=== PATIENT | male | born 1945 | race Caucasian/White ===

== ENCOUNTER → 2018-11-22 | Outpatient (CLI) | payer OTHER ==
[~2018-11-22] MED LIST: ACAR25TA2 PO; ASPI81TA85 PO; ATOR40TA PO; ATOR40TA75 PO; COQ-100C5 PO; EUCECRE2 TOP; GLIM4TAB PO; GLUC500T PO; HYDR-3644 PO; HYDR12.55 PO; ISOVUE-370 76% 100ML VIAL (Q9967) As Ordered ONE; LIPI1TAB2 PO; LISI5TAB PO; METF-839 PO; PERC7.5T12 PO; TYLE325T5 PO; TYLE650T38 PO; WARF05TA PO
--- NOTE | 2018-11-22 15:20 | REP ---
Clinical: Acute chest pain. Technique: Axial contrast enhanced images from the thoracic inlet to the upper abdomen using 100 ml Isovue 370 intravenous contrast material with coronal and sagittal re-formations. Findings: Satisfactory enhancement of the pulmonary vasculature is achieved and no filling defects are identified to suggest pulmonary embolus. Thoracic aorta is normal caliber without aneurysm or dissection. Heart and pericardium are normal. Bilateral lung dover are well aerated and clear without acute pulmonary parenchymal consolidation or atelectasis. Mild bilateral dependent changes noted. No nodule or mass lesion. No pleural effusion/reaction. No pneumothorax. No adenopathy. Impression: No evidence for pulmonary embolus. No acute pleuroparenchymal or mediastinal process. Electronically Signed by Patrick Richards MD 11/22/2018 03:12 P
== END ==
LOC: M RAD 14:33
PROVIDERS: ATTEND Internal Medicine
DX: R97.20 Elevated prostate specific antigen [PSA] (principal); R07.9 Chest pain, unspecified
CPT/HCPCS: 36415; 71275; 80048; Q9967

== ENCOUNTER 2020-04-04 13:26 | Emergency (ER) | payer MEDICARE, OTHER ==
[~2020-04-04] VITALS: Ht 180.3 cm; Wt 98.5 kg
[~2020-04-04 13:26] MED LIST changes: -GLIM4TAB PO; +GLIM4TAB5 PO; -ISOVUE-370 76% 100ML VIAL (Q9967) As Ordered ONE
--- OUTSIDE RECORDS SUMMARY | 2020-04-04 13:31 | CCD ---
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 01/06/2020 Atorvastatin Calcium 40mg Tablets Unknown Glimepiride 4mg Tablets Unknown Hydrochlorothiazide 12.5mg Tablets Unknown Metformin HCL ER 500mg Tablets ER 24HR Unknown Sudafed 30mg Tablets 1 tab by mouth twice a day x 5 days as needed congestion Unknown Immunizations Description No Information Available Vital Signs Date Vital Result Comment 01/06/2020 9:00am BP Systolic 134 mmHg BP Diastolic 78 mmHg Heart Rate 66 /min Respiratory Rate 17 /min O2 % BldC Oximetry 96 % Body Temperature 98.4 F Weight 210.00 lb Height 70 inches 5'10" BMI (Body Mass Index) 30.1 kg/m2 Pain Level 2 Results Description No Information Available Procedures Description No Information Available Medical Devices Description No Information Available Encounters Type Date Location Provider Dx Diagnosis Office Visit 01/06/2020 8:45a [facility] CHACHA Quintero J01.90 Acute sinusitis, unspecified Assessments Date Code Description Provider 01/06/2020 J01.90 Acute sinusitis, unspecified CHACHA Gomez Plan of Treatment 01/06/2020 - CHACHA Quintero* J01.90 Acute sinusitis, unspecified* New Medication:* Doxycycline Hyclate 100 mg - 1 twice a day x 7 days, take with food * Comments:* Supportive care: Vit c, rest, push clear fluids, steam. RTC if worsening despite txt, persistent sxs or new sxs Functional Status Description No Information Available Mental Status Description No Information Available Referrals Description No Information Available
--- OUTSIDE RECORDS SUMMARY | 2020-04-04 13:31 | CCD | Continuity of Care Document ---
Author Author Theodore LENTZ PA Organization Unknown Address [address] [place] [address] [place] [address] Phone [phone] Care Team Providers Care Psych Specialist Name Role Phone [email or web address] ([facility]) AUTM Problems Description No Information Available Social [...]
--- OUTSIDE RECORDS SUMMARY | 2020-04-04 13:31 | CCD ---
Author Author [facility] Organization [facility] Address [address] [place] [address] Phone Care Team Providers Care Echo Vascular Tech Name Role Phone [facility] Radiology, Imaging Unavailable [phone] Flakito BECKETT, Michell Rodrigues Unavailable [phone] Reason for Referral No Reason for Referral Recorded Problems Includes: Active, inactive, and resolved Problems All Visits Effective Date(s) Provider Condition Stat Allergic Rhinitis 12/05/2018 Sosa Grissom NP Active Note: 11/2018 -- Chronic, was only in winter mos, now year-round. Will trial Singulair for sx management. Fatigue 11/08/2018 Sosa Grissom NP Active Platelet Disorders 11/08/2018 Sosa Grissom NP Active Note: --11/15/18 seen by [facility] tlogy/Oncology Adhesive Capsulitis of Shoulder 03/25/2017 Sosa Griffiths P Active Note: Stable - followed by kely joel/Jaclyn. 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 without any prolonged AV conduction times or significant bradycardia Presence of other cardiac implants and grafts 05/21/2016 Meghana Yoon NP Active Note: Loop Recorder placed - [place] [facility]- last seen 03/2019 Syncope and collapse 05/21/2016 Sosa Grissom NP Inactive Note: per [facility] heart, implanta tion of a LINQ implantable forest fire lookout for diagnosis of recurrent presyncope, bradycardia and vifascicular block. 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 Repeat CT 2017 notes no change in Aneurysm size. Last seen 03/2019. Vitamin D Deficiency 02/05/2014 Sosa Grissom NP Active Note: Stable - 05/2017 -- Vit D level 13.3 ng/ml. Vit D 50,000iu weekly Diabetes Mellitus Type 2 12/27/2012 Sosa Grissom NP Activ e Note: Poorly-Controlled - 2019 -- HgA1C 11.1%, up from 9.9%, PT HAS BEEN OUT OF MEDS X 2.5MONTHS D/T INSURANCE CONCERNS. WILL HELP PT SORT OUT INSURANCE IF POSSIBLE AND SEND MEDS TEMPORARILY TO LOCAL PHARMACY Benign Prostatic Hypertrophy 12/19/2012 Sosa Grissom NP A ctive Note: Stable - -- TURP 2012. bx 12/01 neg for cancer Acute Pancreatitis 11/07/2012 - 12/19/2014 Saundra Torres esolved Note: hospitalized 10/27- Calculus of Gallbladder Without Cholecystitis Without Obstru 11/07/2012 Sosa Grissom NP Active Note: 2012 Elevated Prostate Specific Antigen (psa) 11/07/2012 Sosa Grissom NP Inactive Note: Unchanged - per hospit al discharge - elevated PSA. Pt c/o difficulty starting the urine. referral to urology was given prior to discharge. Slowing of Urinary Stream 11/07/2012 - 01/29/2014 Sosa Grissom NP Resolved Unspecified Follow-Up Examination 11/07/2012 - 01/29/2014 Sosa Grissom NP Resolved Urinary Complications Not Elsewhere Classified 11/07/2012 - 01/29/2014 Sosa Grissom NP Resolved Right Bundle Branch Block 02/28/2012 Sosa Grissom NP Acti ve Note: Stable - -- Normal Str ess Test 11/2016, follows with [facility]-- Echo 10/05/18 - Left ventricular systolic function normal, left ventricular diastolic function shows abnormal relaxation, estimated PA systolic pressure normal, Mitral valve shows mild insufficiency. Tricuspid valve shows mild insufficiency. The dimensions of the aortic root is not changed. Last seen 03/2019. Shortness of Breath 02/28/2012 Sosa Grissom NP Active Note: Unchanged - Dr. Car , [place] [facility]- last seen 03/2019. Syncope and Collapse 02/28/2012 - 01/29/2014 Sosa Grissom NP R esolved Note: per [facility] dated 10/02/12 - near syncopal spells twice weekly for the last 2 years. EKG with right bundle branch block and left anterior fascicular block. No evidence that this represents any bradycardia arrhythmias, most likely neurologic in nature. Unspecified Chest Pain 02/28/2012 Sosa Grissom NP Active Note: Dr. Car, [place] [facility]- last seen 03/2019. Coronary Atherosclerosis of [place] Coronary Artery 12/27/2011 Sosa Grissom NP Inactive Hyperlipidemia 12/27/2011 Sosa Grissom NP Active Note: Stable - followed by [facility] ardiology - last seen 03/2019. Hypertension (systemic) 12/13/2011 Sosa Grissom NP Active Note: Stable - 05/2019 -- Ashia ts [facility] Guidelines for Normal BP, Medication adjusted by [facility]- last seen 03/2019. Peripheral Vascular Disease 12/13/2011 Sosa Grissom NP Ac tive Note: Stable - -- Follows wi th [facility] Astigmatism 11/18/2011 Layne BURNHAM Active Note: See report from [facility] dated 07/22/11 . Compound hyperopic astigmatis, presbyopia. Treatment: glases, dry eye drops-follow up with eye doctor in 1 year, 1 month for dry eye. Colonoscopy (fiberoptic) 09/29/2011 Sosa Grissom NP Activ e Note: Unchanged - 09/2011. 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 Sosa Grissom SHADE CUTTER Active Note: Unchanged - -- Left ey e does not close, Plan of Treatment Pending Tests Order Diagnosis Results Due Ordering Provi jessy Lab (CBC)COMPLETE BLOOD CNT 02/06/20 Michell Fraga SHADE CUTTER Lab COMPREHENSIVE METABOLIC PANEL 02/06/20 Michell Fraga SHADE CUTTER Lab LIPID PANEL 02/06/20 Michell Griffiths P Lab MICROALBUMIN RANDOM 02/06/20 Michell evans SHADE CUTTER Lab PSA SCREEN 02/06/20 Michell Griffiths P Lab TSH 02/06/20 Michell Griffiths P Referrals To Diagnosis Urology Slowing of Urinary S tream Note: Please schedule patient with provi jessy US Orchitis and Epididy mitis Unspecified Note: Please schedule patient for testic ular ultrasound, r/o left testicular torsion; testicular pain Urology Hypertrophy (benign) of Prostate Without Urinary Obstruction Note: Please schedule patient with provi jessy in [place]; pt sees group in [place] and is requesting a second opinion from another urologist. Elevated PSA, s/p biopsy now unable to void, self-catheterizing at home. Current Urologist suggesting TURP Ortho Pain in right should er Note: Please schedule patient with provi jessy IN [facility] FOR RIGHT SHOULDER AND NECK PAIN THANK YOU Nutrition-Diabetic Counseling Encntr for general adult medical exam w/o abnormal findings Note: appt made for 02/07/15 at the [facility], appt letter mailed [email or web address] Orthopedic Pain in left shoulde r Note: Please schedule patient with provi jessy at [facility] in [place], pt with left shoulder pain, r/o arthritis vs rotator cuff injury. Hematology/Oncology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 Note: Please schedule patient with provi jessy in [place] area, pt with overt fatigue, abnormal Platelet count x one month. Thank you Orthopedic Imaging [facility] Radiology Foot drop, ri ght foot Note: Please schedule patient with provi jessy at [facility] for Assessment of Foot Drop Brace (approx 5y old) that may need adjustment? Thank you Findings Encounter Date Instructions for patient Establish Care with Michell Griffiths P 10/08/2019 Ordered Clinical summary transmitted to referring provider electronically with reasonable certainty of receipt or receiving provider [facility] Establish Care with Michell Rodrigues Flakito SHADE CUTTER 10/08/2019 Ordered follow-up visit Establish Care with Michell Rodrigues Flakito SHADE CUTTER 10/08/2019 Ordered return to the clinic if condition worsens or n ew symptoms arise Establish Care with Michell Rodrigues Flakito BECKETT 10/08/2019 Ordered Clinical summary transmitted to referring provider electronically with reasonable certainty of receipt or receiving provider [facility] Chronic Disease Follow-up with Sosa Grissom NP 05/31/2019 Ordered Clinical summary transmitted to referring provider electronically or receiving provider [facility] Chronic Disease Follow-up with Sosa Grissom NP 12/01/2018 Ordered Clinical summary transmitted to referring provider electronically or receiving provider [facility] Chronic Disease Follow-up with Sosa Grissom NP 07/12/2018 Ordered Clinical summary transmitted to referring provider electronically or receiving provider [facility] Chronic Disease Follow-up with Sosa Grissom NP 01/11/2018 Ordered Clinical summary transmitted to referring provider electronically or receiving provider [facility] Chronic Disease Follow-up with Sosa Grissom NP 06/23/2017 Return to the clinic if condition worsens or new sympt oms arise Chronic Disease Follow-up with oSsa Grissom NP 06/23/2017 Return to the clinic if condition worsens or new sympt oms arise Diabetes Follow- up with Sosa Grissom NP 02/22/2017 Ordered Transition in care, clinical sum [facility]hell [facility] Chronic Disease Follow-up with Sosa Grissom NP 11/18/2016 Return to the clinic if condition worsens or new sympt oms arise Chronic Disease Follow-up with Sosa Grissom NP 11/18/2016 Ordered Transition in care, clinical sum michell [facility] Chronic Disease Follow-up with Sosa Grissom NP 08/11/2016 Return to the clinic if condition worsens or new sympt oms arise Chronic Disease Follow-up with Sosa Grissom NP 08/11/2016 Return to the clinic if condition worsens or new sympt oms arise Chronic Disease Follow-up with Sosa Grissom NP 03/24/2016 Return to the clinic if condition worsens or new sympt oms arise Chronic Disease Follow-up with Sosa Grissom NP 12/10/2015 Return to the clinic if condition worsens or new sympt oms arise Chronic Disease Follow-up with Sosa Grissom NP 09/05/2015 Return to the clinic if condition worsens or new sympt oms arise Chronic Disease Follow-up with Saundra BURNHAM 06/24/2015 Return to the clinic if condition worsens or new sympt oms arise Chronic Disease Follow-up with Saundra BURNHAM 03/25/2015 Return to the clinic if condition worsens or new sympt oms arise Patient Education with Sosa Grissom NP 02/20/2015 Ordered return to the clinic if condition worsens or n ew symptoms arise AHR with Saundra BURNHAM 12/19/2014 Return to the clinic if condition worsens or new sympt oms arise Diabetes Follow- up with Saundra BURNHAM 08/27/2014 Return to the clinic if condition worsens or new sympt oms arise Diabetes Follow- up with Sosa Grissom NP 01/29/2014 Please have ultrasound done today. I will call you with results. Please begin antibiotics. Complete the dose I will call urology to see if I can get appointment sooner ice, elevation of testicle. Rest iboprofen 400mg for pain, discomfort To emergency for worsening pain, no urine output, worsening swelling, other concerns Walk-In with Sosa Grissom NP 02/05/2013 Continue testing blood sugar once manny y at different times of the day Continue current medications Call me if you see consistent blood sugars over 225 that you cannot explain begin vitamin D once a week for 12 weeks Call with any questions or concerns Dietary plan: 40-45 grams of carbohydrates per meals, three times daily 15 grams of carbohydrates per snack, can have three three times daily Always have a source of protein (meat, cheese, fish, chicken) with every meal Return in three months, sooner if needed Diabetes Follow-up with Sosa Grissom NP 12/27/2012 Return to the clinic if condition worsens or new sympt oms arise Diabetes Follow- up with Sosa Grissom NP 12/27/2012 Please have labs drawn in fasting stat e--nothing to eat for 10-12 hours We will contact you with results of labs Please call [place] with date/time of heart doctor appointment. We will try to make your next appointment around the same time/day next week. Continue with current medications Keep next week appointment with Urology Keep next week appointment with Heart Doctor Call with any concerns Meet & Greet New Appointment with Sosa Grissom NP 12/19/2012 Return to the clinic if condition worsens or new sympt oms arise Hospital Follow- up with Saundra Cuenca DO 11/07/2012 Ordered follow-up visit with cardiology today, went directly to their office from here. 3 months for review meds. Labs reprinted for him M 20 Minutes with Layne BURNHAM 12/13/2011 Ordered return to the clinic if condition worsens or n ew symptoms arise M 20 Minutes with Layne BURNHAM 12/13/2011 Ordered follow-up visit in 6 months Meet & Greet New Appointment with Layne BURNHAM 06/10/2011 Ordered return to the clinic if condition worsens or n ew symptoms arise Meet & Greet New Appointment with Layne BURNHAM 06/10/2011 Assessments Includes: Assessments for all patient encounters Findings Encounter Date Aneurysm of thoracic aorta, without rupture Establish Care with Michell Fraga NP 10/08/2019 Benign prostatic hypertrophy Establish Care with Michell perera NP 10/08/2019 Cerumen impaction Establish Care with Michell Fraga NP Hyperlipidemia Establish Care with Michell Fraga NP Hypertension Establish Care with Michell Fraga NP Peripheral vascular disease Establish Care with Michell griffiths NP 10/08/2019 Type 2 diabetes mellitus Establish Care with Michell Griffiths P 10/08/2019 Foot drop Chronic Disease Follow-up with Sosa vasquez NP 05/31/2019 Hyperlipidemia Chronic Disease Follow-up with Sosa vasquez NP 05/31/2019 Hypertension Chronic Disease Follow-up with Sosa vasquez NP 05/31/2019 No long-term use of insulin Chronic Disease Follow-up with Casper Grissom NP 05/31/2019 Peripheral vascular disease Chronic Disease Follow-up with Casper Grissom NP 05/31/2019 Type 2 diabetes mellitus Chronic Disease Follow-up with Sosa Grissom NP 05/31/2019 Vitamin D deficiency Chronic Disease Follow-up with Sosa koch SHADE CUTTER 05/31/2019 Allergic rhinitis Chronic Disease Follow-up with Sosa vasquez SHADE CUTTER 12/01/2018 Foot drop Chronic Disease Follow-up with Sosa vasquez SHADE CUTTER 12/01/2018 Hyperlipidemia Chronic Disease Follow-up with Sosa vasquez SHADE CUTTER 12/01/2018 Hypertension Chronic Disease Follow-up with Sosa vasquez SHADE CUTTER 12/01/2018 No long-term use of insulin Chronic Disease Follow-up with Casper Grissom NP 12/01/2018 Osteoarthritis of right shoulder Chronic Disease Follo w-up with Sosa Grissom SHADE CUTTER 12/01/2018 Peripheral vascular disease Chronic Disease Follow-up with Casper Grissom SHADE CUTTER 12/01/2018 Platelet disorder Chronic Disease Follow-up with Sosa vasquez SHADE CUTTER 12/01/2018 Post-polio syndrome Chronic Disease Follow-up with Sosa vasquez SHADE CUTTER 12/01/2018 Type 2 diabetes mellitus Chronic Disease Follow-up with Sosa Grissom SHADE CUTTER 12/01/2018 Vitamin D deficiency Chronic Disease Follow-up with Sosa koch SHADE CUTTER 12/01/2018 Fatigue FOLLOW UP RECHECK with Sosa Grissom SHADE CUTTER 11/08/2018 No long-term use of insulin FOLLOW UP RECHECK with Sosa vasquez SHADE CUTTER 11/08/2018 Platelet disorder FOLLOW UP RECHECK with Sosa Grissom SHADE CUTTER 11/08/2018 Type 2 diabetes mellitus FOLLOW UP RECHECK with Sosa nam SHADE CUTTER 11/08/2018 Fatigue Problem Evaluation with Sosa Griffiths P 10/24/2018 Hypertension Problem Evaluation with Sosa Griffiths P 10/24/2018 No long-term use of insulin Problem Evaluation with Sosa koch SHADE CUTTER 10/24/2018 Platelet dysfunction Problem Evaluation with Sosa Grissom SHADE CUTTER 10/24/2018 Type 2 diabetes mellitus Problem Evaluation with Sosa holden SHADE CUTTER 10/24/2018 Aneurysm of thoracic aorta, without rupture Chronic Di sease Follow-up with Sosa Grissom SHADE CUTTER 07/12/2018 Hyperlipidemia Chronic Disease Follow-up with Sosa vasquez SHADE CUTTER 07/12/2018 Hypertension Chronic Disease Follow-up with Sosaherbert vasquez NP 07/12/2018 No long-term use of insulin Chronic Disease Follow-up with Casper Grissom NP 07/12/2018 Peripheral vascular disease Chronic Disease Follow-up with Casper Grissom NP 07/12/2018 Sinusitis Chronic Disease Follow-up with Sosa vasquez NP 07/12/2018 Type 2 diabetes mellitus Chronic Disease Follow-up with Sosa Grissom NP 07/12/2018 Vitamin D deficiency Chronic Disease Follow-up with Sosa koch NP 07/12/2018 Adhesive capsulitis of shoulder Chronic Disease Follow -up with Sosa Grissom NP 01/11/2018 Benign prostatic hypertrophy Chronic Disease Follow-up with Sosa Grissom NP 01/11/2018 Hyperlipidemia Chronic Disease Follow-up with Sosa vasquez NP 01/11/2018 Hypertension Chronic Disease Follow-up with Sosa vasquez NP 01/11/2018 No long-term use of insulin Chronic Disease Follow-up with Casper Grissom NP 01/11/2018 Peripheral vascular disease Chronic Disease Follow-up with Casper Grissom NP 01/11/2018 Type 2 diabetes mellitus Chronic Disease Follow-up with Sosa Grissom NP 01/11/2018 Vitamin D deficiency Chronic Disease Follow-up with Sosa koch NP 01/11/2018 Benign prostatic hypertrophy -- PSA WNL 05/2017. Pt de nies any sx Chronic Disease Follow-up with Sosa Grissom NP 06/23/2017 Hyperlipidemia Chronic Disease Follow-up with Sosa vasquez NP 06/23/2017 Hypertension -- BP WNL. Will recheck renal function in July Chronic Disease Follow-up with Sosa Grissom NP 06/23/2017 No long-term use of insulin Chronic Disease Follow-up with Casper Grissom NP 06/23/2017 Peripheral vascular disease Chronic Disease Follow-up with Casper Grissom NP 06/23/2017 Type 2 diabetes mellitus - Pt will work on diet, activity before making any medication changes. Recheck three months Chronic Disease Follow-up with Sosa Grissom NP 06/23/2017 Vitamin D deficiency -- Began Vit D Chronic Disease F ollow-up with Sosa Grissom NP 06/23/2017 Vitamin D deficiency Medication Refill with Sosa Griffiths P 06/17/2017 Arthralgia of left shoulder region -- w ill refer to [facility] per pt request Diabetes Follow-up with Sosa Grissom NP 02/22/2017 Hyperlipidemia -- Will re- assess labs Diabetes Follo w-up with Sosa Grissom NP 02/22/2017 Hypertension -- Pt will continue to mon itor at home and report readings if greater than 140/90mmHg or less than 100/60mmHg Diabetes Follow-up with Sosa Grissom NP 02/22/2017 No long-term use of insulin Diabetes Follow-up with Sosa koch NP 02/22/2017 Osteoarthritis of right shoulder Diabetes Follow-up with Brenden Grissom NP 02/22/2017 Peripheral vascular disease -- Follows with [facility] Diabetes Follow-up with Sosa Grissom NP 02/22/2017 Post-polio syndrome Diabetes Follow-up with Sosa Ta 02/22/2017 Type 2 diabetes mellitus -- HgA1C 7.4%, no changes made to plan of care at this time. Asked pt to have lab work done in March, fasting Diabetes Follow-up with Sosa Grissom NP 02/22/2017 Vitamin D deficiency Diabetes Follow-up with Sosa Grissom NP 02/22/2017 Age-related cognitive decline Chronic Disease Follow-up with Sosa Grissom NP 11/18/2016 Arthralgia of the right knee/patella/tib ia/fibula -- encouraged continued exercises, consider tylenol for pain/discomfort on physically busy days or days using ladder Chronic Disease Follow-up with Sosa Grissom NP 11/18 Foot drop -- no change Chronic Disease Follow-up with Sosa Grissom NP 11/18/2016 Hyperlipidemia -- labs WNL in July, will reassess at next visit. No change in this plan of care Chronic Disease Follow-up with Sosa Grissom NP 11/18 Hypertension -- Elevated today, likely d/t knee pain. Pt will monitor at home for next 10-14 days and report readings if persistently greater than 140/90mmHg Chronic Disease Follow-up with Sosa Grissom NP 11/18/2016 No long-term use of insulin Chronic Disease Follow-up with Casper Grissom NP 11/18/2016 Peripheral vascular disease Chronic Disease Follow-up with Casper Grissom NP 11/18/2016 Type 2 diabetes mellitus -- Improved Hg A1C, no change in plan. Reminded pt that the trend of readings is more important than a random elevation. He voices understanding to report any hypoglycemic sx he cannot account for Chronic Disease Follow-up with Sosa Grissom NP 11/18/2016 Vitamin D deficiency Chronic Disease Follow-up with Sosa koch NP 11/18/2016 Arthralgia of right shoulder region -- Encouraged heat to area, use NSAIDS sparingly. If reconsiders, will make PT consult and/or ortho consult for evaluation Chronic Disease Follow-up with Sosa Grissom NP 08/11 Hyperlipidemia Chronic Disease Follow-up with Sosa vasquez NP 08/11/2016 Hypertension Chronic Disease Follow-up with Sosa vasquez NP 08/11/2016 No long-term use of insulin Chronic Disease Follow-up with Casper Grissom NP 08/11/2016 Peripheral vascular disease Chronic Disease Follow-up with Casper Grissom NP 08/11/2016 Type 2 diabetes mellitus -- Will Increa se Glimepiride to twice daily, before breakfast, before supper. Metformin will stay at once daily Chronic Disease Follow-up with Sosa Grissom NP 08/11/2016 Vitamin D deficiency Chronic Disease Follow-up with Sosa koch NP 08/11/2016 Hyperlipidemia Chronic Disease Follow-up with Sosa vasquez NP 03/24/2016 Hypertension Chronic Disease Follow-up with Sosa vasquez NP 03/24/2016 No long-term use of insulin Chronic Disease Follow-up with Casper Grissom NP 03/24/2016 Peripheral vascular disease Chronic Disease Follow-up with Casper Grissom NP 03/24/2016 Type 2 diabetes mellitus Chronic Disease Follow-up with Sosa Grissom NP 03/24/2016 Vitamin D deficiency Chronic Disease Follow-up with Sosa koch NP 03/24/2016 Hyperlipidemia Chronic Disease Follow-up with Sosa vasquez NP 12/10/2015 Hypertension Chronic Disease Follow-up with Sosa vasquez NP 12/10/2015 No long-term use of insulin Chronic Disease Follow-up with Casper Grissom NP 12/10/2015 Peripheral vascular disease Chronic Disease Follow-up with Casper Grissom NP 12/10/2015 Type 2 diabetes mellitus Chronic Disease Follow-up with Sosa Grissom NP 12/10/2015 Vitamin D deficiency Chronic Disease Follow-up with Sosa koch NP 12/10/2015 Arthralgia of right shoulder region Chronic Disease Fo llow-up with Sosa Grissom NP 09/05/2015 Hyperlipidemia Chronic Disease Follow-up with Sosa vasquez NP 09/05/2015 Hypertension Chronic Disease Follow-up with Sosa vasquez SHADE CUTTER 09/05/2015 No long-term use of insulin Chronic Disease Follow-up with Casper Grissom NP 09/05/2015 Post-polio syndrome Chronic Disease Follow-up with Sosa vasquez SHADE CUTTER 09/05/2015 Type 2 diabetes mellitus Chronic Disease Follow-up with Sosa Grissom NP 09/05/2015 Foot drop Chronic Disease Follow-up with Saundra Monroe PA 06/24/2015 Hyperlipidemia Chronic Disease Follow-up with Saundra Monroe PA 06/24/2015 Hypertension Chronic Disease Follow-up with Saundra Monroe PA 06/24/2015 Peripheral vascular disease Chronic Disease Follow-up with Marlyn Monroe PA 06/24/2015 Type 2 diabetes mellitus Chronic Disease Follow-up with Brian Manzo PA 06/24/2015 Vitamin D deficiency Chronic Disease Follow-up with Saundra Monroe PA 06/24/2015 Hyperlipidemia Chronic Disease Follow-up with Saundra Monroe PA 03/25/2015 Hypertension Chronic Disease Follow-up with Saundra Monroe PA 03/25/2015 No assessment of long-term use of insulin Chronic Dise ase Follow-up with Saundra Monroe PA 03/25/2015 Peripheral vascular disease Chronic Disease Follow-up with A wen Monroe PA 03/25/2015 Type 2 diabetes mellitus Chronic Disease Follow-up with Brian Manzo PA 03/25/2015 Vitamin D deficiency Chronic Disease Follow-up with Saundra Monroe PA 03/25/2015 No long-term use of insulin Patient Education with Sosa vasquez [employer]ADE [employer]TER 02/20/2015 Type 2 diabetes mellitus Patient Education with Sosa nam [employer] 02/20/2015 Arthralgia of right shoulder region AHR with Saundra rodrigues PA 12/19/2014 Edema AHR with Saundra T [place] PA 12/19/2014 Fatigue AHR with Saundra T Fer PA 12/19/2014 Hyperlipidemia AHR with Saundra T [place] PA 12/19/2014 Hypertension AHR with Saundra T Fer PA 12/19/2014 Peripheral vascular disease AHR with Saundra T Fer PA 03/2014 Routine general medical exam at a health care facility AHR with Saundra T Fer PA 12/19/2014 Type 2 diabetes mellitus AHR with Saundra T [place] PA 2014 Visit for: routine adult H&P AHR AHR with Saundra T Fer PA 12/19/2014 Vitamin D deficiency AHR with Saundra T [place] PA 12/19/2014 GERD Diabetes Follow-up with Saundra T Fer PA 08/27/2014 Hypertension Diabetes Follow-up with Saundra T Fer PA 08/27/2014 Type 2 diabetes mellitus Diabetes Follow-up with Saundra Sherita Be jonathanie PA 08/27/2014 Benign hypertension Establish Care with Saundra T Fer PA 05/27/2014 Hypertension Establish Care with Saundra Sherita [place] PA 05/27/2014 Peripheral vascular disease Establish Care with Saundra Sherita Owusu ttsonia PA 05/27/2014 Type 2 diabetes mellitus Establish Care with Saundra Sherita Kevinti e PA 05/27/2014 Benign hypertension Diabetes Follow-up with Sosa Griffiths P 01/29/2014 Benign prostatic hypertrophy Diabetes Follow-up with Sosa Grissom [employer] 01/29/2014 Cerumen impaction in the left ear Diabetes Follow-up with Meghana Yoon [employer] 01/29/2014 Peripheral vascular disease Diabetes Follow-up with Sosa koch NP 01/29/2014 Type 2 diabetes mellitus Diabetes Follow-up with Sosa holden [employer] 01/29/2014 Epididymitis of the left testicle , r/o testicular tor karri Walk-In with Sosa Grissom NP 02/05/2013 Assessment of prostate-specific antigen was elevated R eferral Order with Sosa Grissom NP 01/11/2013 Assessment of smaller urine stream Referral Order with Sosa Grissom NP 01/11/2013 Benign prostatic hypertrophy Referral Order with Sosa holden [employer] 01/11/2013 Pancreatitis Referral Order with Sosa Grissom NP Benign prostatic hypertrophy --pt seein g urology. Currently self- catheterizing, denies complaints/concerns Diabetes Follow-up with Sosa Grissom NP 12/27/2012 Hypertension --BP good today. Pt denie s any dizzines, syncopal episodes. Currently taking 12.5 HCTZ Diabetes Follow-up with Sosa Grissom NP 12/27/2012 Pancreatitis --lab work looks much impoved! Amylase and lipase normal Diabetes Follow-up with Sosa rGissom NP 12/27/2012 Type 2 diabetes mellitus --Continue to monitor blood sugars, work on diet management Diabetes Follow-up with Sosa Grissom NP 12/27/2012 Assessment of prostate-specific antigen was elevated --following with [facility] Meet & Greet New Appointment with Sosa Grissom NP Benign essential hypertension --follows with [facility]. We will all continue to monitor Meet & Greet New Appointment with Sosa Grissom NP Cerumen impaction --ears flushed today Meet & Greet N ew Appointment with Sosa Grissom NP 12/19/2012 Hyperglycemia --we discussed this today . Labs ordered today and we will follow this Meet & Greet New Appointment with Sosa Grissom NP Hyperlipidemia --good control per last labs. [facility] fol lows Meet & Greet New Appointment with Sosa Grissom NP 12/19/2012 Normal routine history and physical senior citizen (65 -80) Meet & Greet New Appointment with Sosa Grissom NP 12/19/2012 Pancreatitis --currently symptom-free. Lab ordered to day Meet & Greet New Appointment with Sosa Grissom NP 12/19/2012 Vasovagal syncope --[facility] following--neuro vs glycemic? Meet & Greet New Appointment with Sosa Grissom NP 12/19/2012 Assessment of smaller urine stream [facility] records reported elevated PSA and advised urology outpatient appointment. Patient has distended bladder and enlarged prostate on CT report from recent hospitalization in [place]. PSA recently >5.0. Urology referal requested today Hospital Follow-up with Saundra Cuenca DO 11/07/2012 Assessment of visit for: follow-up exam Patient hospitalized for pancreatitis from 10/27-10/30/12. >40 minutes spent face-to face with patient, coordinating care, and reviewing hospital records and diagnostic materials Hospital Follow-up with Saundra Cuenca DO 11/07/2012 Cholelithiasis without cholecystitis stable Hospital Follow-up with Saundra Cuenca 11/07/2012 Hyperlipidemia controlled on atorvastatin daily Hospi [facility] Follow-up with Saundra Cuenca 11/07/2012 Hypertension Controlled on lisinopril/ HCTZ, however it is making patient tired during the day, and makes his BP drop at night to 90/60. Advised patient to switch meds to HCTZ only. Advised to check BP daily when he first wakes up and before he goes to bed. Advised to call office with any top numbers greater than 150 or less than 110 and bottom numbers greater than 90 or less than 60 Hospital Follow-up with Saundra Cuenca 11/07/2012 Pancreatitis Improved Hospital Follow-up with Saundra Cuenca 11/07/2012 Coronary artery disease M 20 Minutes with Layne BURNHAM 12/13/2011 Hypertension M 20 Minutes with Layne BURNHAM 0 12/13/2011 Peripheral vascular disease M 20 Minutes with Layne BURNHAM 12/13/2011 Benign essential hypertension Meet & Greet New Appoint ment with Layne BURNHAM 06/10/2011 Post-polio syndrome Meet & Greet New Appointment with Jazmine BURNHAM 06/10/2011 Instructions Instructions not supported for this document typeNo Instructions Recorded Medical Equipment - Implanted Devices Includes: Current and historical DevicesNo Medical Equipment Recorded Medications Includes: Current and historical Medications Current Medications (continue as prescribed) Acarbose 25 MG Oral Tablet 10/08/2019 Provider: Michell Fraga NP Diagnosis: Type 2 diabetes kt itus with unspecified complications One Tablet at Start of Meal OneAbraham Porter Lancets 33G Miscellaneous 10/08/2019 - 04/05 Provider: Michell Fraga NP Diagnosis: Type 2 diabetes kt itus with unspecified complications Test BID DX: E11.65 Accu-Chek Laverne Plus In Vitro Strip 06/01/2019 Prov ider: Sosa Grissom NP Diagnosis: Type 2 diabetes kt itus with hyperglycemia Test BID DX: E11.65 Montelukast Sodium 10 MG Oral Tablet 06/01/2019 Pro vider: Sosa Grissom NP Diagnosis: Allergic rhinitis, u nspecified 1 every bedtime for allergy symptoms metFORMIN HCl ER 500 MG Oral Tablet Extended Release 24 Hour 06/01/2019 Provider: Sosa Grissom NP Diagnosis: Type 2 diabetes kt itus with unspecified complications One with breakfast, one with supper hydroCHLOROthiazide 12.5 MG Oral Tablet 06/01/2019 Provider: Sosa Grissom NP Diagnosis: 1/2 TABLET DAILY Glimepiride 4 MG Oral Tablet 06/01/2019 Provider: Sosa Grissom NP Diagnosis: Type 2 diabetes kt itus with unspecified complications One Tablet with Breakfast, One Tablet with Supper BD Swab Single Use Regular Pad 06/01/2019 Provider: Sosa Grissom NP Diagnosis: Type 2 diabetes kt itus with hyperglycemia Test BID DX: E11.65 Atorvastatin Calcium 40 MG Oral Tablet 06/01/2019 P rovider: Sosa Grissom NP Diagnosis: Hyperlipidemia, unsp ecified One Tablet every Evening Accu-Chek Softclix Lancets Miscellaneous 2017 Provider: Sosa Grissom NP Diagnosis: Type 2 diabetes kt itus without complications Test BID DX: E11.9 Co Q 10 Oral Capsule 08/11/2016 Provider: Diagnosis: SB Low Dose ASA EC 81 MG Tablet Delayed Release 12/19/2014 Provider: Diagnosis: otc Past Medications on file Acarbose 25 MG Oral Tablet 10/08/2019 - 10/08/2019 Provider: Michell Fraga NP Diagnosis: Type 2 diabetes kt itus with unspecified complications One Tablet at Start of Meal OneTouch Verio w/Device Kit 06/05/2019 - 07/05/2019 Provider : Diagnosis: Type 2 diabetes kt itus with hyperglycemia Test BID. DX: E11.65 OneTouch Verio In Vitro Strip 06/05/2019 - 03/01/2020 Provid er: Diagnosis: Type 2 diabetes kt itus with hyperglycemia Test BID DX: E11.65 OneTouch Delica Lancets 33G Miscellaneous 06/05/2019 - 12/01 Provider: Diagnosis: Type 2 diabetes kt itus with hyperglycemia Test BID DX: E11.65 OneTouch Delica Lancets 33G Miscellaneous 06/05/2019 - 10/07 Provider: Savanna Rendon NP Diagnosis: Type 2 diabetes kt itus with hyperglycemia Test BID DX: E11.65 OneTouch Delica Lancing Dev Miscellaneous 06/05/2019 - 07/04 Provider: Diagnosis: Type 2 diabetes kt itus with hyperglycemia Test BID DX: E11.65 OneTouch Verio In Vitro Strip 06/05/2019 - 03/01/2020 Provid er: Savanna Rendon SHADE [employer]TER Diagnosis: Type 2 diabetes kt itus with hyperglycemia Test BID DX: E11.65 MaoToannia Delica Lancing Dev Miscellaneous 06/05/2019 - 07/04 Provider: Savanna Rendon [employer]ADE [employer]TER Diagnosis: Type 2 diabetes kt itus with hyperglycemia Test BID DX: E11.65 OneTouch Verio w/Device Kit 06/05/2019 - 07/05/2019 Provider : Savanna Rendon [employer]TER Diagnosis: Type 2 diabetes kt itus with hyperglycemia Test BID. DX: E11.65 Acarbose 25 MG Oral Tablet 06/01/2019 - 10/08/2019 Provider: Sosa Grissom NP Diagnosis: Type 2 diabetes kt itus with unspecified complications One Tablet at Start of Meal hydroCHLOROthiazide 12.5 MG Oral Tablet 05/31/2019 - 020 Provider: Sosa Grissom NP Diagnosis: 1/2 TABLET DAILY Atorvastatin Calcium 40 MG Oral Tablet 05/31/2019 - 06/01/19 Provider: Sosa Grissom NP Diagnosis: Hyperlipidemia, unsp ecified once a day Acarbose 25 MG Oral Tablet 05/31/2019 - 06/01/2019 Provider: Sosa Grissom NP Diagnosis: Type 2 diabetes kt itus with unspecified complications One Tablet at Start of Meal Singulair 10 MG Oral Tablet 05/31/2019 - 06/01/2019 Provider : Sosa Grissom NP Diagnosis: Allergic rhinitis, u nspecified 1 every bedtime for allergy symptoms metFORMIN HCl ER 500 MG Oral Tablet Extended Release 2 4 Hour 05/31/2019 - 06/01/2019 Provider: Sosa Grissom NP Diagnosis: Type 2 diabetes kt itus with unspecified complications One with breakfast, one with supper Glimepiride 4 MG Oral Tablet 05/31/2019 - 06/01/2019 Provide r: Sosa Grissom NP Diagnosis: Type 2 diabetes kt itus with unspecified complications One Tablet with Breakfast, One Tablet with Supper metFORMIN HCl ER 500 MG Oral Tablet Extended Release 2 4 Hour 01/30/2019 - 05/31/2019 Provider: Sosa Grissom NP Diagnosis: Type 2 diabetes kt itus with unspecified complications One with breakfast, one with supper Acarbose 25MG Oral Tablet 12/01/2018 - 05/31/2019 Provider: Sosa Grissom NP Diagnosis: Type 2 diabetes kt itus with unspecified complications One Tablet at Start of Meal Singulair 10MG Oral Tablet 12/01/2018 - 12/01/2018 Provider: Sosa Grissom NP Diagnosis: Allergic rhinitis, u nspecified 1 every bedtime for allergy symptoms Acarbose 25MG Oral Tablet 12/01/2018 - 12/01/2018 Provider: Sosa Grissom NP Diagnosis: Type 2 diabetes kt itus with unspecified complications One Tablet at Start of Meal Singulair 10MG Oral Tablet 12/01/2018 - 05/31/2019 Provider: Sosa Grissom NP Diagnosis: Allergic rhinitis, u nspecified 1 every bedtime for allergy symptoms Acarbose 25MG Oral Tablet 11/08/2018 - 12/01/2018 Provider: Sosa Grissom NP Diagnosis: Type 2 diabetes kt itus with unspecified complications One Tablet at Start of Meal Glimepiride 4MG Oral Tablet 07/12/2018 - 05/31/2019 Provider : Sosa Grissom NP Diagnosis: Type 2 diabetes kt itus with unspecified complications One Tablet with Breakfast, One Tablet with Supper Atorvastatin Calcium 40MG Oral Tablet 07/12/2018 - 9 Provider: Sosa Grissom NP Diagnosis: Hyperlipidemia, unsp ecified once a day Augmentin 875-125MG Oral Tablet 07/12/2018 - 10/24/2018 Prov ider: Sosa Grissom NP Diagnosis: Chronic sinusitis, u nspecified twice a day x 10 days BD Swab Single Use Regular Pad 07/12/2018 - 06/01/2019 Provi jessy: Sosa Grissom NP Diagnosis: Type 2 diabetes kt itus without complications Test BID DX: E11.9 Atorvastatin Calcium 40MG Oral Tablet 07/12/2018 - 0 Provider: Sosa Grissom NP Diagnosis: Hyperlipidemia, unsp ecified once a day Accu-Chek Laverne Plus In Vitro Strip 07/12/2018 - 06/01/2019 Provider: Sosa Grissom NP Diagnosis: Type 2 diabetes kt itus without complications Test BID DX: E11.9 Glimepiride 2 MG OR TABS 07/04/2018 - 07/12/2018 Provider: Diagnosis: Type 2 diabetes kt itus with unspecified complications Atorvastatin Calcium 40MG Oral Tablet 07/04/2018 - 9 Provider: Sosa Grissom NP Diagnosis: Hyperlipidemia, unsp ecified once a day Glimepiride 2MG Oral Tablet 07/04/2018 - 07/12/2018 Provider : Sosa Grissom NP Diagnosis: Type 2 diabetes kt itus with unspecified complications twice a day with meals Atorvastatin Calcium 40 MG OR TABS 07/04/2018 - 07/12/2018 P rovider: Diagnosis: Hyperlipidemia, unsp ecified MetFORMIN HCl ER 500MG Oral Tablet Extended Release 24 Hour 01/11/2018 - 01/30/2019 Provider: Sosa Grissom NP Diagnosis: Type 2 diabetes kt itus with unspecified complications One with breakfast, one with supper HydroCHLOROthiazide 12.5MG Oral Tablet 01/11/2018 - 05/31/19 Provider: Diagnosis: half tab daily Vitamin D (Ergocalciferol) [id number] Oral Capsule 06/17/2017 - 07/12/2018 Provider: Sosa Grissom NP Diagnosis: Vitamin D deficiency , unspecified One Tab Weekly Atorvastatin Calcium 40 MG OR TABS 04/28/2017 - 06/07/2017 P rovider: Diagnosis: metFORMIN HCl ER 500 MG TB24 04/28/2017 - 06/23/2017 Provide r: Diagnosis: Type 2 diabetes kt itus with unspecified complications Atorvastatin Calcium 40MG Oral Tablet 04/28/2017 - 9 Provider: Sosa Grissom NP Diagnosis: once a day Glimepiride 2MG Oral Tablet 04/28/2017 - 07/12/2018 Provider : Sosa Grissom NP Diagnosis: Type 2 diabetes kt itus with unspecified complications twice a day MetFORMIN HCl ER 500MG Oral Tablet Extended Release 24 Hour 04/28/2017 - 01/11/2018 Provider: Sosa Grisosm NP Diagnosis: Type 2 diabetes kt itus with unspecified complications 1 every morning HydroCHLOROthiazide 25MG Oral Tablet 04/28/2017 - 01/11/2018 Provider: Sosa Grissom NP Diagnosis: Type 2 diabetes kt itus with unspecified complications 1 every morning hydroCHLOROthiazide 25 MG TABS 04/28/2017 - 06/23/2017 Provi jessy: Diagnosis: Type 2 diabetes kt itus with unspecified complications Glimepiride 2 MG OR TABS 04/28/2017 - 06/07/2017 Provider: Diagnosis: Type 2 diabetes kt itus with unspecified complications Accu-Chek Laverne Plus STRP 2017 - 2017 Provide r: Diagnosis: Type 2 diabetes kt itus without complications Test BID DX: E11.9 Accu-Chek Laverne Plus w/Device KIT 2017 - 2017 Pr ovider: Diagnosis: Type 2 diabetes kt itus without complications Test BID DX: E11.9 BD Swab Single Use Regular Pad 2017 - 07/12/2018 Provi jessy: Sosa Grissom SH[employer]TER Diagnosis: Type 2 diabetes kt itus without complications Test BID DX: E11.9 Accu-Chek Laverne Plus w/Device Kit 2017 - 06/07/2017 Pr ovider: Sosa Grissom SH[employer]TER Diagnosis: Type 2 diabetes kt itus without complications Test BID DX: E11.9 Accu-Chek Laverne Plus In Vitro Strip 2017 - 07/12/2018 Provider: Sosa Grissom [employer]TER Diagnosis: Type 2 diabetes kt itus without complications Test BID DX: E11.9 BD Swab Single Use Regular PADS 2017 - 2017 Prov ider: Diagnosis: Type 2 diabetes kt itus without complications Test BID DX: E11.9 Accu-Chek Softclix Lancets MISC 2017 - 2017 Prov ider: Diagnosis: Type 2 diabetes kt itus without complications Test BID DX: E11.9 Glimepiride 2MG Oral Tablet 02/22/2017 - 06/07/2017 Provider : Sosa Grissom [employer]TER Diagnosis: Type 2 diabetes kt itus with unspecified complications One Tab before Breakfast, One Tab before Supper OneTouch Ultra Blue In Vitro Strip 11/18/2016 - 2017 P rovider: Sosa Grissom [employer]TER Diagnosis: Type 2 diabetes kt itus without complications Test BID DX: E11.9 Atorvastatin Calcium 40 MG OR TABS 08/11/2016 - 04/28/2017 P rovider: Diagnosis: MetFORMIN HCl ER 500MG Oral Tablet Extended Release 24 Hour 08/11/2016 - 06/07/2017 Provider: Sosa Grissom NP Diagnosis: Type 2 diabetes kt itus with unspecified complications One tab with breakfast Glimepiride 2MG Oral Tablet 08/11/2016 - 02/22/2017 Provider : Sosa Grissom NP Diagnosis: Type 2 diabetes kt itus with unspecified complications One Tab before Breakfast, One Tab before Supper Atorvastatin Calcium 40MG Oral Tablet 08/11/2016 - 8 Provider: Diagnosis: salima [facility] HydroCHLOROthiazide 25MG Oral Tablet 05/28/2016 - 06/07/2017 Provider: Sosa Grissom NP Diagnosis: Type 2 diabetes kt itus without complications once a day in AM MetFORMIN HCl ER 500 MG Tablet Extended Release 24 Hour 06/2016 - 08/11/2016 Provider: Sosa Grissom NP Diagnosis: Type 2 diabetes kt itus with unspecified complications One tab with breakfast OneTouch Ultra Blue Strip 03/24/2016 - 11/18/2016 Provider: Sosa Grissom NP Diagnosis: Type 2 diabetes kt itus without complications Test BID DX: E11.9 HydroCHLOROthiazide 25 MG Tablet 03/24/2016 - 05/28/2016 Pro vider: Sosa Grissom NP Diagnosis: Type 2 diabetes kt itus without complications once a day in AM Glimepiride 2 MG Tablet 03/24/2016 - 08/11/2016 Provider: Sosa Grissom NP Diagnosis: Type 2 diabetes kt itus with unspecified complications One tab before supper Percocet 5-325 MG Tablet 10/02/2015 - 12/10/2015 Provider: [facility] Diagnosis: Lidoderm 5 % Patch 10/02/2015 - 12/10/2015 Provider: [facility] Diagnosis: Glimepiride 2 MG Tablet 09/05/2015 - 03/24/2016 Provider: Sosa Grissom NP Diagnosis: Type 2 diabetes kt itus with unspecified complications One tab before supper Medical Compression Stockings Miscellaneous 07/07/2015 - 07/2017 Provider: Saundra BURNHAM Diagnosis: Peripheral vascular disease, unspecified as directed; 20mmhg compression stocking; wear while awake; dx I73.9 Medical Compression Stockings Miscellaneous 07/02/2015 - Provider: Saundra BURNHAM Diagnosis: Peripheral vascular disease, unspecified as directed; 20mmhg compression stocking; wear while awake; dx I73.9 OneTouch Lancets Miscellaneous 07/02/2015 - 2017 Provi jessy: Saundra BURNHAM Diagnosis: Type 2 diabetes kt itus without complications as directed Dispense store brand to match machine Test BID DX: E11.9 OneTouch Ultra 2 w/Device Kit 07/02/2015 - 2017 Provid er: Saundra BURNHAM Diagnosis: Type 2 diabetes kt itus without complications as directed dispense store brand glucose meter, test BID DX : E11.9 OneTouch Ultra Blue Strip 07/02/2015 - 03/24/2016 Provider: Saundra BURNHAM Diagnosis: Type 2 diabetes kt itus without complications as directed Dispense store brand test st ript to match machine Test BID DX: E11.9 OneTouch Lancets MISC 07/02/2015 - 09/17/2016 Provider: Diagnosis: Type 2 diabetes kt itus without complications Dispense store brand to match machine Test BID DX: E11.9 OneTouch Ultra Blue STRP 07/02/2015 - 09/05/2015 Provider : Diagnosis: Type 2 diabetes kt itus without complications Dispense store brand test stript to match machine Test BID DX: E11.9 OneTouch Ultra 2 w/Device KIT 07/02/2015 - 09/05/2015 Provid er: Diagnosis: Type 2 diabetes kt itus without complications dispense store brand glucose meter, test BID DX: E11.9 Medical Compression Stockings Miscellaneous 06/24/2015 - Provider: Saundra BURNHAM Diagnosis: Peripheral vascular disease, unspecified as directed; 20mmhg compression stocking; wear while awake; dx I73.9 Misc. Devices Miscellaneous 06/24/2015 - 07/02/2015 Provider : Saundra BURNHAM Diagnosis: Type 2 diabetes kt itus with unspecified complications lancets for testing twice daily; dx E11.8 Misc. Devices Miscellaneous 06/24/2015 - 07/02/2015 Provider : Saundra BURNHAM Diagnosis: Type 2 diabetes kt itus with unspecified complications store brand diabetes test strips for testing twice daily; dx E11.8 Misc. Devices Miscellaneous 06/24/2015 - 07/02/2015 Provider : Saundra BURNHAM Diagnosis: Type 2 diabetes kt itus with unspecified complications 1 store brand glucose meter; dx code E11.8 Medical Compression Stockings Miscellaneous 06/24/2015 - 07/2015 Provider: Saundra BURNHAM Diagnosis: Peripheral vascular disease, unspecified as directed; 20mmhg compression stocking; wear while awake; dx I73.9 MetFORMIN HCl ER 500 MG Tablet Extended Release 24 Hour 07/2015 - 03/24/2016 Provider: Saundra BURNHAM Diagnosis: Type 2 diabetes kt itus with unspecified complications 2 tabs po daily with breakfast Zostavax 38423 UNT/0.65ML Solution Reconstituted 03/25/2015 - 09/05/2015 Provider: Saundra BURNHAM Diagnosis: as directed MetFORMIN HCl ER (OSM) 1000 MG Tablet Extended Release 24 Hour 03/25/2015 - 03/25/2015 Provider: Saundra BURNHAM Diagnosis: Type 2 diabetes kt itus with unspecified complications once a day with breakfast MetFORMIN HCl 500 MG Tablet 03/25/2015 - 03/25/2015 Provider : Saundra BURNHAM Diagnosis: Type 2 diabetes kt itus without complications twice a day 1 tab bid Hydrochlorothiazide 25 MG Tablet 03/25/2015 - 03/24/2016 Pro vider: Saundra BURNHAM Diagnosis: Type 2 diabetes kt itus without complications once a day Medical Compression Stockings Miscellaneous 03/25/2015 - Provider: Saundra BURNHAM Diagnosis: Edema, unspecified wear while awake; size to fit Atorvastatin Calcium 40 MG Tablet 03/25/2015 - 08/11/2016 Pr ovider: Diagnosis: per [facility] Medical Compression Stockings Miscellaneous 12/19/2014 - 07/2015 Provider: Saundra BURNHAM Diagnosis: Edema, unspecified wear while awake; size to fit Atorvastatin Calcium 40 MG Tablet 12/19/2014 - 03/25/2015 Pr ovider: Diagnosis: per [facility] Hydrochlorothiazide 25 MG Tablet 08/27/2014 - 03/25/2015 Pro vider: Saundra BURNHAM Diagnosis: Dm Without Complicat ion Type II or Unspecified Type Not Stat once a day MetFORMIN HCl 500 MG Tablet 08/27/2014 - 03/25/2015 Provider : Saundra BURNHAM Diagnosis: Dm Without Complicat ion Type II or Unspecified Type Not Stat twice a day 1 tab bid Zostavax 28457 UNT/0.65ML Solution, when reconstituted 08/27 - 03/25/2015 Provider: Saundra BURNHAM Diagnosis: please administer or dispense for adminstration at our offic e Hydrochlorothiazide 12.5 MG Tablet 08/27/2014 - 08/27/2014 Keyon acosta: Diagnosis: prsb Sosa Grissom 06/04/14 SB Low Dose ASA EC 81 MG Tablet, enteric coated 08/27/2014 - 12/19/2014 Provider: Diagnosis: otc Atorvastatin Calcium 40 MG Tablet 08/27/2014 - 12/19/2014 Pr ovider: Diagnosis: per [facility] Atorvastatin Calcium 40 MG Tablet 08/27/2014 - 08/27/2014 Pr ovider: Diagnosis: per [facility] SB Low Dose ASA EC 81 MG Tablet, enteric coated 08/27/2014 - 08/27/2014 Provider: Diagnosis: otc MetFORMIN HCl 500 MG Tablet 05/27/2014 - 08/27/2014 Provider : Saundra BURNHAM Diagnosis: Dm Without Complicat ion Type II or Unspecified Type Not Stat twice a day 1 tab bid Misc. Devices Miscellaneous (not specified) 05/27/2014 - Provider: Saundra BURNHAM Diagnosis: Dm Without Complicat ion Type II or Unspecified Type Not Stat once a day disp 1 bottle glucose test strip accucheck janey t est QD Aleve 220 MG Capsule, conventional 05/27/2014 - 08/27/2014 Keyon acosta: Diagnosis: Per [facility] only once a day Atorvastatin Calcium 40 MG Tablet 05/27/2014 - 08/27/2014 Pr ovider: Diagnosis: per [facility] SB Low Dose ASA EC 81 MG Tablet, enteric coated 05/27/2014 - 08/27/2014 Provider: Diagnosis: Vitamin D (Ergocalciferol) 1.25 MG (09303 UT) OR CAPS 2013 - 05/27/2014 Provider: Sosa Grissom NP Diagnosis: ONE CAPSULE WEEKLY X'S 12 WEEKS Glimepiride 2 MG OR TABS 02/05/2014 - 08/27/2014 Provider: Sosa Grissom NP Diagnosis: TAKE WITH SUPPER Aleve 220 MG OR CAPS 01/29/2014 - 05/27/2014 Provider: Diagnosis: Per [facility] only once a day hydroCHLOROthiazide 12.5 MG TABS 01/29/2014 - 05/27/2014 Pro vider: Sosa Grissom NP Diagnosis: Benign Essential Hyp ertension take daily in the AM Gabapentin 100 MG OR CAPS 01/29/2014 - 05/27/2014 Provider: Diagnosis: Take 1-2 tablets three times a dayPt takes two a day. One in AM and one in PM hydroCHLOROthiazide 12.5 MG TABS 02/22/2013 - 01/29/2014 Pro vider: Saundra Cuenca DO Diagnosis: Benign Essential Hyp ertension take daily in the AM Bactrim DS 800-160 MG OR TABS 02/05/2013 - 01/29/2014 Provid er: Sosa Grissom NP Diagnosis: Orchitis and Epididy mitis Unspecified one tablet twice a day for 14 days Vitamin D (Ergocalciferol) 1.25 MG (47804 [place]) OR CAPS 2012 - 01/29/2014 Provider: Sosa Grissom NP Diagnosis: Unspecified Vitamin D Deficiency One tab once a week for 12 weeks SB Low Dose ASA EC 81 MG OR TBEC 12/27/2012 - 05/27/2014 Pro vider: Diagnosis: Misc. Devices MISC 12/27/2012 - 05/27/2014 Provider: Sosa Grissom NP Diagnosis: Dm Without Complicat ion Type II or Unspecified Type Not Stat disp 1 bottle glucose test strip accucheck janey test QD Flomax 0.4 MG OR CAPS 12/19/2012 - 01/29/2014 Provider: Diagnosis: once daily per urology--BPH Atorvastatin Calcium 40 MG OR TABS 12/19/2012 - 05/27/2014 Keyon acosta: Diagnosis: per [facility] hydroCHLOROthiazide 12.5 MG TABS 11/07/2012 - 02/22/2013 Pro vider: Saundra Cuenca DO Diagnosis: Benign Essential Hyp ertension take daily in the AM; to replace combo med Lisinopril-hydroCHLOROthiazide 20-12.5 MG TABS 08/11/2012 - 11/07/2012 Provider: Berna Madrid NP Diagnosis: Hypertension Unspeci fied Essential Lisinopril-hydroCHLOROthiazide 20-12.5 MG TABS 01/27/2012 - 08/11/2012 Provider: Layne BURNHAM Diagnosis: Atorvastatin Calcium 40 MG OR TABS 12/29/2011 - 12/19/2012 Keyon rovider: Diagnosis: Fish Oil 1000 MG OR CAPS 12/21/2011 - 11/07/2012 Provider: Layne BURNHAM Diagnosis: bid Vitamin D (Ergocalciferol) 1.25 MG (94119 UT) OR CAPS 2011 - 11/07/2012 Provider: Layne BURNHAM Diagnosis: one tab po qweek for 12 weeks. Lisinopril-hydroCHLOROthiazide 20-12.5 MG TABS 06/10/2011 - 06/10/2011 Provider: Diagnosis: TAKE ONE BY MOUTH ONCE A DAY BY Nicolás BURNHAM Lisinopril-hydroCHLOROthiazide 20-12.5 MG TABS 06/10/2011 - 01/27/2012 Provider: Layne BURNHAM Diagnosis: Medications Administered Includes: Administered Medications in patient's chartNo Administered Medications Recorded Vital Signs Includes: Vital Signs from 03/07/2019 through 03/07/2020 Vital Name 10/08/2019 07:32A 05/31/2019 07:24A Blood Pressure Sitting L 148/88 BP Cuff Size Regular Large Pulse Rate-Sitting (bpm) 72 81 Pulse Rhythm Regular Regular Respiration Rate (breaths/min) 18 18 Temp-Tympanic (F) 97.3 98 Weight (lb) 209 214 Pain Level 0 0 Oxygen Saturation (%) 96 98 Flow Rate (l/min) (None (Room Air)) (None (Room Air)) FiO2 (%) 21 21 Height (in) 71 Body Mass Index (kg/m2) 29.8 Body Surface Area (m2) 2.17 Blood Pressure Sitting R 124/80 Results Includes: Results from 03/07/2019 through 03/07/2020 Hgb A1c In-House Labs Ordered by Micehll Fraga NP on 10/08/2019 Specimen Source: Whole blood Collected: 10/08/2019 R eported: 10/08/2019 Hgb A1c 8.8 A (Abnormal) Reviewed on 10/08/2019; All test result s are final unless otherwise noted. Hgb A1c In-House Labs Ordered by Sosa Grissom NP on 05/31/2019 Specimen Source: Whole blood Collected: 05/31/2019 R eported: 05/31/2019 Hgb A1c 11.1 H (High) Reviewed on 05/31/2019; All test result s are final unless otherwise noted. History of Present Illness History of Present Illness not supported for this document typeNo History of Present Illness Recorded Social History Description Last Updated Smoking status 10/08/2019 : Current everyday smoker Pt chews 10/08/2019 Alcohol use (male) less than 4 drinks per occasion / 14 per week occasionally 10/08/2019 Caffeine use Pot of coffee daily 10/08/2019 Educational level some college 10/08/2019 No domestic violence 10/08/2019 No secondhand cigarette smoke exposure 10/08/2019 Normal activities of daily living 10/08/2019 Not using drugs 10/08/2019 Sexually active 10/08/2019 Procedures and Surgical/Medical History Includes: Procedures from 03/07/2019 through 03/07/2020 Procedures CPT-4 Diagnosis Performing Provider Service Location Service Date Hemoglobin; Glycated A1c (QW) 42480 Type 2 zara betes mellitus without complications Michell Fraga NP [facility] 10/08/2019 Removal Impacted Cerumen (separate Procedure), One or Both E (Left) 87213 Impacted cerumen, left ear Michell Fraga NP [facility] 10/08/2019 Hemoglobin; Glycated A1c (QW) 29318 Type 2 zara betes mellitus without complications Sosa Grissom NP [facility] 05/31/2019 Surgical History Last Updated Surgical / procedural history - TURP 10/08/2019 History of back surgery 10/08/2019 History of orthopedic surgery left knee replacement 0 10/08/2019 History of tonsillectomy 10/08/2019 Medical History Last Updated Past medical history -Please see Problem List for Act maxine Chronic Problems 10/08/2019 Patient screening 03/25/2015 Offered for Hepatitis C 0 03/25/2015 Family History Includes: Family History in patient's chart Description Last Updated Family history of cancer --Father pancr eatic ~No family history of colon, breast, or prostate ca 10/08/2019 Family history of diabetes mellitus --mother 10/08/19 Family history of heart disease --Fathe r(CAD, CABG), Brother(CAD, CABG), Sister(CAD), Sister (DVT) 10/08/2019 Family history of hypertension --father, brother 09/19 Review of Systems Review of Systems not supported for this document typeNo Review of Systems Recorded Mental Status Mental Status not supported for this document typeNo Mental Status Recorded Functional Status Functional Status not supported for this document typeNo Functional Status Recorded Physical Exam Physical Exam not supported for this document typeNo Physical Exam Recorded Immunizations Includes: Immunizations in patient's chart Vaccine Dose # Date Site Reaction(s) Status Source Boostrix 1 08/27/2014 Right Arm Complete (Administered) [facility] Influenza 1 12/19/2012 Right Arm Complete (Administered) [facility] Influenza 2 01/29/2014 Right Arm Complete (Administered) [facility] Influenza 3 12/19/2014 Left Arm Complete (Administered) [facility] Influenza 4 12/10/2015 Left Arm Complete (Administered) [facility] Influenza 5 11/18/2016 Right Arm Complete (Administered) [facility] Influenza 6 01/11/2018 Right Arm Complete (Administered) [facility] Influenza, seasonal, injectable, preservative free 1 019 Left Arm Complete (Administered) [facility] PCV (Pneumovax 23) 1 01/31/2008 Complete (Reported ) Patient Prevnar 13 1 08/27/2014 Left Arm Complete (Administered) [facility] Allergies Includes: Active, inactive, and resolved AllergiesNo Known Allergies Encounters Includes: Encounters from 03/07/2019 through 03/07/2020 Encounter Provider Location Date Diagnosis Chart Update Michell Fraga NP 03/06/2020 Chart Update Michell Fraga NP 11/10/2019 Establish Care Michell Fraga NP [facility] 10/08/2019 Aortic Aneurysm Thoracic Without Rupture, Benign Prostatic Hypertrophy, Diabetes Mellitus Type 2, Hyperlipidemia, Hypertension (systemic), Peripheral Vascular Disease, Cerumen Impaction [Patient Encounter] Savanna Rendon NP 06/22/2019 Medication Order Sosa Grissom NP 06/01/2019 Chart Update Sosa Grissom NP 05/31/2019 Chronic Disease Follow-up Sosa Grissom NP [facility] Diabetes Mellitus Type 2, Hyperlipidemia, Hypertension (systemic), Peripheral Vascular Disease, Vitamin D Deficiency, Taking Medication For Diabetes Long-term Use of Insulin, Acquired Deformity - Foot Drop Chart Update Sosa Grissom NP 05/29/2019 [Patient Encounter] Sosa Grissom NP 05/11/2019 Chart Update Sosa Grissom NP 04/11/2019 Insurance Includes: Active Insurance Policies Plan Name Member ID Group # Subscriber Relationship Effective [place] 1 - [facility] [id number] Theodore Quintanilla Self Advance Directives Includes: Current Advance Directives Directive Pat Aware [employer] Effective Date Reviewed Status packet given Pt Bill of Rights, Priv Prac, Ad Dir Yes 05/31/2019 Current and Verified Note: pt has all information Ebola Screening Performed Yes 10/08/2019 Current and Verified Note: Within the last month, have you traveled outside of the [place]? 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 Added 12/27/2012 by Provider Health Concern: Diabetes Mellitus Type 2 Maintain stable lipid levels and prevent further cardiovascular disease progression. Added 07/12/2018 by Provider Health Concerns: Aortic Aneurysm Thoracic Without Rupture, Hyperlipidemia, Peripheral Vascular Disease, Right Bundle Branch Block, Shortness of Breath Improved Balance, Prevent Falls/Injury Added 05/31/2019 by Provider Health Concern: Acquired Deformity - Foot Drop Interventions Includes: Interventions for active Goals Medications prescribed as per cardiology .Keep regular appointments with cardiology as scheduled. Added 12/13/2011 Goal: maintain blood pressure less than 140/90 Improve dietary pattern with improved in take of vegetables, fruits, and whole grains. Low sodium diet encouraged.Increase healthy exercise: Goal is 3-4 sessions of moderate intensity exercise, 30-40 minutes. Be sure to stay well- hydrated; goal is 6-8 8ounce glasses of water daily.Avoid excessive alcohol intake.Monitor blood pressure if possible periodically. If you note BP > 140/90 persistently, please call and notify us of readings. Added 07/12/2018 Goal: maintain blood pressure less than 140/90 Linked Medication: hydroCHLOROthiazide 12.5 MG Oral Tablet Pt presents to 05/2019 office visit not t [facility] meds since February d/t insurance complications/confusions. I believe we have clarified information and I have sent medications to proper mail order to be refilled. Glimepiride 4 mg with breakfast and 4 mg with supperContinue Metformin after BreakfastContinue Acarbose prior to mealsContinue to checking blood sugars twice daily at different times and as needed for high or low blood sugar symptoms.Monitor feet for changes in color, sensation, sores, pain. If you note any of these, please call the office for an appointmentHealthy eating encouraged. Be aware of eating too many carbohydrates and one meal, as this is what raised sugars.Contact this office if you have any persistent hypoglycemia with change in medication dosing. Added 12/27/2012 Goal: Your A1C goal is less than 7.0% without episodes of hypoglycemia (low blood sugar). Pt admits at 05/2019 office visit he has been out of Atorvastatin for approx 2.5mos d/t insurance change/confusion. Improve dietary pattern with improved intake of vegetables, fruits and whole grains. Alter/continue intake of low- fat dairy products, fish, monounsaturated oils, and limit intake of sweets, sugar-sweetened beverages, and high-fat red meats. Reduce/eliminate intake of trans fats.Increase healthy exercise: Goal is 3-4 sessions of moderate intensity exercise, 30-40 minutes. Be sure to stay well-hydrated; goal is 6-8 8ounce glasses of water daily. Avoid excessive alcohol intake.Continue to follow with Cardiology as scheduled Added 07/12/2018 Goal: Maintain stable lipid levels and prevent further cardiovascular disease progression. Linked Medication: Atorvastatin Calcium 40 MG Oral Tablet Linked Medication: SB Low Dose ASA EC 81 MG Tablet Delayed Release Referral made to [facility] for re- evaluation and possible new foot brace that will fit boots properly; pt has not been wearing brace much of Winter as it does not fit in boots. Added 05/31/2019 Goal: Improved Balance, Prevent Falls/Injury Evaluations & Outcomes Includes: Evaluations & Outcomes for active Goals BP Stable, pt compliant with medication management, Cardiology appts. No change in plan of care Added 12/13/2011 - In Progress Goal: maintain blood pressure less than 140/90 HgA1C 11.1%, pt without meds since begin 2019. This has been corrected, meds ordered through proper mail-order company. Pt will restart medications and testing, and record readings for review. He is agreeable to 3-4month appt instead of 6 month appt as diabetes is not controlled at this time. Outcome is pending. Added 12/27/2012 - In Progress Goal: Your A1C goal is less than 7.0% without episodes of hypoglycemia (low blood sugar). Lipid levels drawn through [facility], will obtain results. Pt has not had atorvastatin since beginning march, so labs will reflect no Atorvastatin use. This has been resolved; pt will restart medications and continue to follow with Cardiology as scheduled. Added 07/12/2018 - In Progress Goal: Maintain stable lipid levels and prevent further cardiovascular disease progression. Outcome is pending Added 05/31/2019 - In Progress Goal: Improved Balance, Prevent Falls/Injury
--- OUTSIDE RECORDS SUMMARY | 2020-04-04 13:32 | CCD ---
Author Author [facility] Organization [facility] Address Unknown Phone Unavailable Care Team Providers Care Loading Manager Name Role Phone Keyon Car MD, [facility] Unavailable Unavailable Gabris, Keyon Hong MD, [facility] Unavailable Unavailable Gabris, Keyon Hong MD, [facility] Unavailable Unavailable Gabris, Keyon Hong MD, [facility] Unavailable Unavailable Gabris, Keyon Hong MD, [facility] Unavailable Unavailable Gabris, Keyon Hong MD, [facility] Unavailable Unavailable Gabris, Keyon Hong MD, [facility] Unavailable Unavailable Gabris, Keyon Hong MD, [facility] Unavailable Unavailable Gabris, Keyon Hong MD, [facility] Unavailable Unavailable Gabris, Keyon Hong MD, [facility] Unavailable Unavailable Gabris, Keyon Hong MD, [facility] Unavailable Unavailable Gabris, Keyon Hong MD, [facility] Unavailable Unavailable Gabris, Keyon Hong MD, [facility] Unavailable Unavailable Gabris, Keyon Hong MD, [facility] Unavailable Unavailable Gabris, Keyon Hong MD, [facility] Unavailable Unavailable Gabris, Keyon Hong MD, [facility] Unavailable Unavailable Gabris, Keyon Hong MD, [facility] Unavailable Unavailable Gabris, Keyon Hong MD, [facility] Unavailable Unavailable Gabris, Keyon Hong MD, [facility] Unavailable Unavailable Gabris, Keyon Hong MD, [facility] Unavailable Unavailable Gabris, Keyon Hong MD, [facility] Unavailable Unavailable Gabris, Keyon Hong MD, [facility] Unavailable Unavailable Gabris, Keyon Hong MD, [facility] Unavailable Unavailable Gabris, Keyon Hong MD, [facility] Unavailable Unavailable Gabris, Keyon Hong MD, [facility] Unavailable Unavailable Gabris, Keyon Hong MD, [facility] Unavailable Unavailable Gabris, Keyon Hong MD, [facility] Unavailable Unavailable Gabris, Keyon Hong MD, [facility] Unavailable Unavailable Gabris, Keyon Hong MD, [facility] Unavailable Unavailable Gabris, Keyon Hong MD, [facility] Unavailable Unavailable Gabris, Keyon Hong MD, [facility] Unavailable Unavailable Gabris, Keyon Hong MD, [facility] Unavailable Unavailable Gabris, Keyon Hong MD, [facility] Unavailable Unavailable Gabris, Keyon Hong MD, [facility] Unavailable Unavailable Gabris, Keyon Hong MD, [facility] Unavailable Unavailable Gabris, Keyon Hong MD, [facility] Unavailable Unavailable Gabris, Keyon Hong MD, [facility] Unavailable Unavailable Gabris, Keyon Hong MD, [facility] Unavailable Unavailable Gabris, Keyon Hong MD, [facility] Unavailable Unavailable Gabris, Keyon Hong MD, [facility] Unavailable Unavailable Gabris, Keyon Hong MD, [facility] Unavailable Unavailable Gabris, Keyon Hong MD, [facility] Unavailable Unavailable Gabris, Keyon Hong MD, [facility] Unavailable Unavailable Gabris, Keyon Hong MD, [facility] Unavailable Unavailable Gabris, Keyon Hong MD, [facility] Unavailable Unavailable Gabris, Keyon Hong MD, [facility] Unavailable Unavailable Gabris, Keyon Hong MD, [facility] Unavailable Unavailable Gabris, Keyon Hong MD, [facility] Unavailable Unavailable Gabris, Keyon Hong MD, [facility] Unavailable Unavailable Gabris, Keyon Hong MD, [facility] Unavailable Unavailable Gabris, Keyon Hong MD, [facility] Unavailable Unavailable Gabris, Keyon Hong MD, [facility] Unavailable Unavailable Gabris, Keyon Hong MD, [facility] Unavailable Unavailable Gabris, Keyon Hong MD, [facility] Unavailable Unavailable Gabris, Keyon Hong MD, [facility] Unavailable Unavailable Gabris, Keyon Hong MD, [facility] Unavailable Unavailable Gabris, Keyon Hong MD, [facility] Unavailable Unavailable Gabris, Keyon Hong MD, [facility] Unavailable Unavailable Gabris, Keyon Hong MD, [facility] Unavailable Unavailable Gabris, Keyon Hong MD, [facility] Unavailable Unavailable Gabris, Keyon Hong MD, [facility] Unavailable Unavailable Gabris, Keyon Hong MD, [facility] Unavailable Unavailable Gabris, Keyon Hong MD, [facility] Unavailable Unavailable Gabris, Keyon Hong MD, [facility] Unavailable Unavailable Gabris, Keyon Hong MD, [facility] Unavailable Unavailable Gabris, Keyon Hong MD, [facility] Unavailable Unavailable Gabris, Keyon Hong MD, [facility] Unavailable Unavailable Ravi FragaP Unavailable Unavailable Ravi FragaP Unavailable Unavailable Ravi FragaP Unavailable Unavailable Ravi FragaP Unavailable Unavailable Shaben, E Michell TRANSFUSION NURSE Unavailable Unavailable Shaben, E Michell TRANSFUSION NURSE Unavailable Unavailable Shaben, E Michell TRANSFUSION NURSE Unavailable Unavailable Shaben, E Michell TRANSFUSION NURSE Unavailable Unavailable Shaben, E Michell TRANSFUSION NURSE Unavailable Unavailable Shaben, E Michell TRANSFUSION NURSE Unavailable Unavailable Shaben, E Michell TRANSFUSION NURSE Unavailable Unavailable Shaben, E Michell TRANSFUSION NURSE Unavailable Unavailable Shaben, E Michell TRANSFUSION NURSE Unavailable Unavailable Shaben, E Michell TRANSFUSION NURSE Unavailable Unavailable Shaben, E Michell TRANSFUSION NURSE Unavailable Unavailable Shaben, E Michell TRANSFUSION NURSE Unavailable Unavailable Shaben, E Michell TRANSFUSION NURSE Unavailable Unavailable Shaben, E Michell TRANSFUSION NURSE Unavailable Unavailable Shaben, E Michell TRANSFUSION NURSE Unavailable Unavailable Shaben, E Michell TRANSFUSION NURSE Unavailable Unavailable Shaben, E Michell TRANSFUSION NURSE Unavailable Unavailable Shaben, E Michell TRANSFUSION NURSE Unavailable Unavailable Shaben, E Michell TRANSFUSION NURSE Unavailable Unavailable Darlin Osorio RN Unavailable Unavailable Darlin Osorio RN Unavailable Unavailable Darlin Osorio RN Unavailable Unavailable Darlin Osorio RN Unavailable Unavailable Darlin Osorio RN Unavailable Unavailable Darlin Osorio RN Unavailable Unavailable Darlin Osorio RN Unavailable Unavailable Darlin Osorio RN Unavailable Unavailable Darlin Osorio RN Unavailable Unavailable Darlin Osorio RN Unavailable Unavailable Darlin Osorio RN Unavailable Unavailable Darlin Osorio RN Unavailable Unavailable Darlin Osorio RN Unavailable Unavailable Darlin Osorio RN Unavailable Unavailable Darlin Osorio RN Unavailable Unavailable Darlin Osorio RN Unavailable Unavailable Darlin Osorio RN Unavailable Unavailable PAVLOVITZ, T AURORA Unavailable Unavailable PAVLOVITZ, T AURORA Unavailable Unavailable PAVLOVITZ, T AURORA Unavailable Unavailable PAVLOVITZ, T AURORA Unavailable Unavailable PAVLOVITZ, T AURORA Unavailable Unavailable Arya Grissom RN [facility] TRANSFUSION NURSE CDE Unavailable UnavailArya Prabhakar RN [facility] TRANSFUSION NURSE CDE Unavailable Unavailabl Arya Galvan RN [facility] TRANSFUSION NURSE CDE Unavailable Unavailabl Arya Galvan RN MS TRANSFUSION NURSE CDE Unavailable Unavailabl Arya Galvan RN MS TRANSFUSION NURSE CDE Unavailable Unavailabl Arya Galvan RN MS TRANSFUSION NURSE CDE Unavailable Unavailabl Arya Galvan RN MS TRANSFUSION NURSE CDE Unavailable Unavailabl Arya Galvan RN MS TRANSFUSION NURSE CDE Unavailable Unavailabl Arya Galvan RN MS TRANSFUSION NURSE CDE Unavailable Unavailabl Arya Galvan RN MS TRANSFUSION NURSE CDE Unavailable Unavailabl ravi Grissom, Arya Swan RN [facility] TRANSFUSION NURSE CDE Unavailable Unavailabl e Jaciel, Arya Swan RN MS TRANSFUSION NURSE CDE Unavailable Unavailabl ravi Grissom, Arya Swan RN [facility] TRANSFUSION NURSE CDE Unavailable Unavailabl e Jaciel, Arya Swan RN MS TRANSFUSION NURSE CDE Unavailable Unavailabl e Jaciel, Arya Swan RN MS TRANSFUSION NURSE CDE Unavailable Unavailabl e Jaciel, Arya Swan RN MS TRANSFUSION NURSE CDE Unavailable Unavailabl e Jaciel, Arya Swan RN MS TRANSFUSION NURSE CDE Unavailable Unavailabl e Jaciel, Arya Swan RN MS TRANSFUSION NURSE CDE Unavailable Unavailabl e Jaciel, Arya Swan RN MS TRANSFUSION NURSE CDE Unavailable Unavailabl e Jaciel, Arya Sawn RN MS TRANSFUSION NURSE CDE Unavailable Unavailabl e Jaciel, Arya Swan RN MS TRANSFUSION NURSE CDE Unavailable Unavailabl e Arya Grissom RN MS TRANSFUSION NURSE CDE Unavailable Unavailabl e Jaciel, Arya Swan RN MS TRANSFUSION NURSE CDE Unavailable Unavailabl e Jaciel, Arya Swan RN MS TRANSFUSION NURSE CDE Unavailable Unavailabl e Arya Grissom RN MS TRANSFUSION NURSE CDE Unavailable Unavailabl ravi Grissom, Arya Swan RN MS TRANSFUSION NURSE CDE Unavailable Unavailabl ravi Grissom, Arya Swan RN MS TRANSFUSION NURSE CDE Unavailable Unavailabl Arya Galvan RN MS TRANSFUSION NURSE CDE Unavailable Unavailabl Arya Galvan RN MS TRANSFUSION NURSE CDE Unavailable Unavailabl Arya Galvan RN MS TRANSFUSION NURSE CDE Unavailable Unavailabl Arya Galvan RN MS TRANSFUSION NURSE CDE Unavailable Unavailabl Arya Galvan RN MS TRANSFUSION NURSE CDE Unavailable Unavailabl Arya Galvan RN MS TRANSFUSION NURSE CDE Unavailable Unavailabl Arya Galvan RN MS TRANSFUSION NURSE CDE Unavailable Unavailabl Arya Galvan RN MS TRANSFUSION NURSE CDE Unavailable Unavailabl Arya Galvan RN MS TRANSFUSION NURSE CDE Unavailable Unavailabl Arya Galvan RN MS TRANSFUSION NURSE CDE Unavailable Unavailabl Arya Galvan RN MS TRANSFUSION NURSE CDE Unavailable Unavailabl Arya Galvan RN MS TRANSFUSION NURSE CDE Unavailable Unavailabl e Jaciel, Arya Swan RN [facility] TRANSFUSION NURSE CDE Unavailable Unavailabl e Jaciel, Arya Swan RN [facility] TRANSFUSION NURSE CDE Unavailable Unavailabl e Jaciel, Arya Swan RN [facility] TRANSFUSION NURSE CDE Unavailable Unavailabl e Grissom, Arya Swan RN [facility] TRANSFUSION NURSE CDE Unavailable Unavailabl e Grissom, Aray Swan RN [facility] TRANSFUSION NURSE CDE Unavailable Unavailabl e Grissom, Arya Swan RN MS TRANSFUSION NURSE CDE Unavailable Unavailabl e Grissom, Arya Swan RN MS TRANSFUSION NURSE CDE Unavailable Unavailabl e Grissom, Arya Swan RN MS TRANSFUSION NURSE CDE Unavailable Unavailabl e Grissom, Arya Swan RN MS TRANSFUSION NURSE CDE Unavailable Unavailabl e Grissom, Arya Swan RN MS TRANSFUSION NURSE CDE Unavailable Unavailabl e Jaciel, Arya Swan RN [facility] TRANSFUSION NURSE CDE Unavailable Unavailabl e Jaciel, Arya Swan RN [facility] TRANSFUSION NURSE CDE Unavailable Unavailabl e Grissom, Arya Swan RN [facility] TRANSFUSION NURSE CDE Unavailable Unavailabl e Keating, Eileen Mckay PA Unavailable Unavailable Keating, Eileen Mckay PA Unavailable Unavailable Keating, Eileen Mckay PA Unavailable Unavailable Keating, Eileen Mckay PA Unavailable Unavailable Keating, Eileen Mckay PA Unavailable Unavailable Keating, Eileen Mckay PA Unavailable Unavailable Keating, Eileen Mckay PA Unavailable Unavailable Keating, Eileen Mckay PA Unavailable Unavailable Keating, Eileen Mckay PA Unavailable Unavailable Keating, Eileen Mckay PA Unavailable Unavailable Julieta, I Savanna COFFEE SUPERVISOR Unavailable Unavailable Julieta, I Savanna COFFEE SUPERVISOR Unavailable Unavailable Julieta, I Savanna COFFEE SUPERVISOR Unavailable Unavailable Julieta, I Savanna COFFEE SUPERVISOR Unavailable Unavailable Julieta, I Savanna COFFEE SUPERVISOR Unavailable Unavailable Julieta, I Savanna COFFEE SUPERVISOR Unavailable Unavailable Julieta, I Savanna COFFEE SUPERVISOR Unavailable Unavailable Julieta, I Savanna COFFEE SUPERVISOR Unavailable Unavailable Julieta, I Savanna COFFEE SUPERVISOR Unavailable Unavailable Julieta, I Savanna COFFEE SUPERVISOR Unavailable Unavailable Julieta, I Savanna COFFEE SUPERVISOR Unavailable Unavailable Julieta, I Savanna COFFEE SUPERVISOR Unavailable Unavailable Julieta, I Savanna COFFEE SUPERVISOR Unavailable Unavailable Julieta, I Savanna COFFEE SUPERVISOR Unavailable Unavailable Julieta, I Savanna COFFEE SUPERVISOR Unavailable Unavailable Julieta, I Savanna COFFEE SUPERVISOR Unavailable Unavailable Julieta, I Savanna COFFEE SUPERVISOR Unavailable Unavailable Julieta, I Savanna COFFEE SUPERVISOR Unavailable Unavailable Julieta, I Savanna COFFEE SUPERVISOR Unavailable Unavailable Julieta, I Savanna COFFEE SUPERVISOR Unavailable Unavailable Julieta, I Savanna COFFEE SUPERVISOR Unavailable Unavailable Julieta, I Savanna COFFEE SUPERVISOR Unavailable Unavailable Julieta, I Savanna COFFEE SUPERVISOR Unavailable Unavailable Julieta, I Savanna COFFEE SUPERVISOR Unavailable Unavailable Julieta, I Savanna COFFEE SUPERVISOR Unavailable Unavailable Julieta, I Savanna COFFEE SUPERVISOR Unavailable Unavailable Julieta, I Savanna COFFEE SUPERVISOR Unavailable Unavailable Julieta, I Savanna COFFEE SUPERVISOR Unavailable Unavailable Julieta, I Savanna COFFEE SUPERVISOR Unavailable Unavailable Juleita, I Savanna COFFEE SUPERVISOR Unavailable Unavailable Julieta, I Savanna COFFEE SUPERVISOR Unavailable Unavailable Julieta, I Savanna COFFEE SUPERVISOR Unavailable Unavailable Julieta, I Savanna COFFEE SUPERVISOR Unavailable Unavailable Julieta, I Savanna COFFEE SUPERVISOR Unavailable Unavailable Julieta, I Savanna COFFEE SUPERVISOR Unavailable Unavailable Julieta, I Savanna COFFEE SUPERVISOR Unavailable Unavailable Julieta, I Savanna COFFEE SUPERVISOR Unavailable Unavailable Julieta, I Savanna COFFEE SUPERVISOR Unavailable Unavailable Julieta, I Savanna COFFEE SUPERVISOR Unavailable Unavailable Julieta, I Savanna COFFEE SUPERVISOR Unavailable Unavailable Julieta, I Savanna COFFEE SUPERVISOR Unavailable Unavailable Julieta, I Savanna COFFEE SUPERVISOR Unavailable Unavailable Julieta, I Savanna COFFEE SUPERVISOR Unavailable Unavailable Julieta, I Savanna COFFEE SUPERVISOR Unavailable Unavailable Julieta, I Savanna COFFEE SUPERVISOR Unavailable Unavailable Julieta, I Savanna COFFEE SUPERVISOR Unavailable Unavailable Julieta, I Savanna COFFEE SUPERVISOR Unavailable Unavailable Julieta, I Savanna COFFEE SUPERVISOR Unavailable Unavailable Julieta, I Savanna COFFEE SUPERVISOR Unavailable Unavailable Julieta, I Savanna COFFEE SUPERVISOR Unavailable Unavailable Julieta, I Savanna COFFEE SUPERVISOR Unavailable Unavailable Julieta, I Savanna COFFEE SUPERVISOR Unavailable Unavailable Julieta, I Savanna COFFEE SUPERVISOR Unavailable Unavailable Julieta, I Savanna COFFEE SUPERVISOR Unavailable Unavailable Julieta, I Savanna COFFEE SUPERVISOR Unavailable Unavailable Julieta, I Savanna COFFEE SUPERVISOR Unavailable Unavailable Julieta, I Savanna COFFEE SUPERVISOR Unavailable Unavailable Julieta, I Savanna COFFEE SUPERVISOR Unavailable Unavailable Julieta, I Savanna COFFEE SUPERVISOR Unavailable Unavailable Julieta, I Savanna COFFEE SUPERVISOR Unavailable Unavailable Julieta, I Savanna COFFEE SUPERVISOR Unavailable Unavailable Julieta, I Savanna COFFEE SUPERVISOR Unavailable Unavailable Julieta, I Savanna COFFEE SUPERVISOR Unavailable Unavailable Jeannie Aceves COFFEE SUPERVISOR Unavailable Unavailable Jeannie Aceves COFFEE SUPERVISOR Unavailable Unavailable Jeannie Aceves COFFEE SUPERVISOR Unavailable Unavailable Aceves, Jeannie Nolvia COFFEE SUPERVISOR Unavailable Unavailable Aceves, Jeannie Nolvia COFFEE SUPERVISOR Unavailable Unavailable Aceves, Jeannie Nolvia COFFEE SUPERVISOR Unavailable Unavailable Aceves, Jeannie Nolvia COFFEE SUPERVISOR Unavailable Unavailable Aceves, Jeannie Nolvia COFFEE SUPERVISOR Unavailable Unavailable Aceves, Jeannie Nolvia COFFEE SUPERVISOR Unavailable Unavailable Aceves, Jeannie Nolvia COFFEE SUPERVISOR Unavailable Unavailable Aceves, Jeannie Nolvia COFFEE SUPERVISOR Unavailable Unavailable Aceves, Jeannie Nolvia COFFEE SUPERVISOR Unavailable Unavailable COLEMAN, HAN MD Unavailable Unavailable COLEMAN, HAN MD Unavailable Unavailable COLEMAN, HAN MD Unavailable Unavailable COLEMAN, HAN MD Unavailable Unavailable COLEMAN, HAN MD Unavailable Unavailable COLEMAN, HAN MD Unavailable Unavailable COLEMAN, HAN MD Unavailable Unavailable COLEMAN, HAN MD Unavailable Unavailable COLEMAN, HAN MD Unavailable Unavailable COLEMAN, HAN MD Unavailable Unavailable COLEMAN, HAN MD Unavailable Unavailable COLEMAN, HAN MD Unavailable Unavailable COLEMAN, HAN MD Unavailable Unavailable COLEMAN, HAN MD Unavailable Unavailable COLEMAN, HAN MD Unavailable Unavailable COLEMAN, HAN MD Unavailable Unavailable COLEMAN, HAN MD Unavailable Unavailable COLEMAN, HAN MD Unavailable Unavailable COLEMAN, HAN MD Unavailable Unavailable COLEMAN, HAN MD Unavailable Unavailable COLEMAN, HAN MD Unavailable Unavailable COLEMAN, HAN MD Unavailable Unavailable COLEMAN, HAN MD Unavailable Unavailable COLEMAN, HAN MD Unavailable Unavailable COLEMAN, HAN MD Unavailable Unavailable COLEMAN, HAN MD Unavailable Unavailable COLEMAN, HAN MD Unavailable Unavailable COLEMAN, HAN MD Unavailable Unavailable COLEMAN, HAN MD Unavailable Unavailable COLEMAN, HAN MD Unavailable Unavailable Re-disclosure Warning The records that you are about to access may contain information from federally-assisted alcohol or drug abuse programs. If such information is present, then the following federally mandated warning applies: This information has been disclosed to you from records protected by federal confidentiality rules (42 CFR part 2). The federal rules prohibit you from making any further disclosure of this information unless further disclosure is expressly permitted by the written consent of the person to whom it pertains or as otherwise permitted by 42 CFR part 2. A general authorization for the release of medical or other information is NOT sufficient for this purpose. The Federal rules restrict any use of the information to criminally investigate or prosecute any alcohol or drug abuse patient.The records that you are about to access may contain highly sensitive health information, the redisclosure of which is protected by Article 27-F of the [place] [facility] Public Health law. If you continue you may have access to information: Regarding HIV / AIDS; Provided by facilities licensed or operated by the [facility] Office of Mental Health; or Provided by the [facility] Office for People With Developmental Disabilities. If such information is present, then the following [facility] mandated warning applies: This information has been disclosed to you from confidential records which are protected by state law. State law prohibits you from making any further disclosure of this information without the specific written consent of the person to whom it pertains, or as otherwise permitted by law. Any unauthorized further disclosure in violation of state law may result in a fine or residential sentence or both. A general authorization for the release of medical or other information is NOT sufficient authorization for further disc losure. Advance Directives Directive Description Bowl Attendant Shot Hole Shooter Status Observation Descr iption Data Source(s) Ebola Screening Performed completed Ebol a Screening Performed [facility] ([facility]) Note: Within the last month, have you tr aveled outside of the [place]? -NO packet given Pt Bill of Rights, Priv Prac, Ad Dir completed packet given Pt Bill of Rights, Priv Prac, Ad Dir [facility] ([facility]) Note: pt has all information Ebola Screening Performed completed Ebol a Screening Performed [facility] ([facility]) Note: Within the last month, have you tr aveled outside of the [place]? -NO Allergies and Adverse Reactions Type Description Substance Reaction Status Data Source(s ) Allergy to substance No Known Allergies No known allergies (situation ) [facility] ([facility]) Allergy to substance No Known Allergies No known allergies (situation ) [facility] ([facility]) Allergy to substance No Known Allergies No known allergies (situation ) [facility] ([facility]) Allergy to substance No Known Allergies No known allergies (situation ) [facility] ([facility]) Allergy to substance No Known Allergies No known allergies (situation ) [facility] ([facility]) Family History Family Member Name Family Member Gender Family Member Status Date o f Status Description Data Source(s) Unknown Female Problem [facility] ([facility]) Encounters Encounter Providers Location Date Indications Data Source(s ) Unknown<td ID="encounterTypeDescriptionI D0">Chart Update</td><td>Michell Fraga NP</td><td></td><td>03/06/2020</td><td></td> Attender: Michell MARIE 03/06/2020 04:13:00 PM EST - 03/06/2020 11:59:00 PM EST [facility] ([facility]) Outpatient [email or web address] 02/13/2020 03:01:02 PM EST [facility] Outpatient Attender: Nely jaffe 01/06/2020 08:45:00 AM EDT [facility] ([facility]) Outpatient [email or web address] 01/02/2020 09:30:47 AM EDT [facility] Outpatient [email or web address] 11/22/2019 01:47:20 PM EDT [facility] Unknown<td ID="encounterTypeDescriptionI D1">Chart Update</td><td>Michell Fraga NP</td><td></td><td>11/10/2019</td><td></td> Attender: Michell MARIE 11/10/2019 10:06:00 AM EDT - 11/10/2019 11:59:00 PM EDT [facility] ([facility]) Outpatient Attender: Hal Car MD, [facility] [email or web address] [id number] 11/08/2019 03:31:31 PM EDT - 11/08/2019 04:26:58 PM EDT [facility] Outpatient 10/19/2019 05:07:22 PM EDT [facility] ([facility]) Outpatient [email or web address] 10/10/2019 10:14:54 AM EDT [facility] Outpatient<td ID="encounterTypeDescripti onID2">Establish Care</td><td>Michell Fraga NP</td><td>[facility]</td><td>10/08/2019</td><td><content ID="encounterDiagnosisID2-0">Aortic Aneurysm Thoracic Without Rupture</content>, <content ID="encounterDiagnosisID2-1">Benign Prostatic Hypertrophy</content>, <content ID="encounterDiagnosisID2-2">Diabetes Mellitus Type 2</content>, <content ID="encounterDiagnosisID2-3">Hyperlipidemia</content>, <content ID="encounterDiagnosisID2-4">Hypertension (systemic)</content>, <content ID="encounterDiagnosisID2-5">Peripheral Vascular Disease</content>, <content ID="encounterDiagnosisID2-6">Cerumen Impaction</content></td> Attender: Michell Carveraye [facility] 10/08/2019 07:19:00 AM EDT - 10/08/2019 08:44:48 AM EDT Cerumen ImpactionCerumen ImpactionAortic Aneurysm Thoracic Without RuptureAortic Aneurysm Thoracic Without RuptureDiabetes Mellitus Type 2Diabetes Mellitus Type 2Benign Prostatic HypertrophyBenign Prostatic HypertrophyHyperlipidemiaHyperlipidemiaPeripheral Vascular DiseaseHypertension (systemic)Peripheral Vascular DiseaseHypertension (systemic) [facility] Cerumen Impaction Cerumen Impaction Aortic Aneurysm Thoracic Without Rupture Aortic Aneurysm Thoracic Without Rupture Diabetes Mellitus Type 2 Diabetes Mellitus Type 2 Benign Prostatic Hypertrophy Benign Prostatic Hypertrophy Hyperlipidemia Hyperlipidemia Peripheral Vascular Disease Hypertension (systemic) Peripheral Vascular Disease Hypertension (systemic) Outpatient Attender: HAN COLEMAN MD Physical Therapy 02:30:00 PM EDT [facility] ) Outpatient [email or web address] 08/28/2019 03:52:55 PM EDT [facility] Outpatient [email or web address] 07/17/2019 04:45:57 PM EDT [facility] Unknown<td ID="encounterTypeDescriptionI D3">[Patient Encounter]</td><td>Savanna Rendon NP</td><td></td><td>06/22/2019</td><td></td> Attender: Savanna Rendon NP 06/22/2019 10:47:00 AM EDT - 06/22/2019 11:59:00 PM EDT [facility] ([facility]) Outpatient<td ID="encounterTypeDescripti onID4">Medication Order</td><td>Sosa Grissom NP</td><td></td><td>06/01/2019</td><td></td> Attender: Sosa Grissom RN [facility] TRANSF[facility] 06/01/2019 02:05:00 PM EDT - 06/01/2019 11:59:00 PM EDT [facility]) Unknown<td ID="encounterTypeDescriptionI D5">Chart Update</td><td>Sosa Grissom NP</td><td></td><td>05/31/2019</td><td></td> Attender: Sosa Grissom RN MS TRANSFUSION NURSE [facility] 05/31/2019 04:52:00 PM EDT - 05/31/2019 11:59:00 PM EDT [facility] Outpatient<td ID="encounterTypeDescripti onID6">Chronic Disease Follow- up</td><td>Sosa Grissom NP</td><td>[facility]</td><td>05/31/2019</td><td><content ID="encounterDiagnosisID6-0">Diabetes Mellitus Type 2</content>, <content ID="encounterDiagnosisID6- 1">Hyperlipidemia</content>, <content ID="encounterDiagnosisID6-2">Hypertension (systemic)</content>, <content ID="encounterDiagnosisID6-3">Peripheral Vascular Disease</content>, <content ID="encounterDiagnosisID6-4">Vitamin D Deficiency</content>, <content ID="encounterDiagnosisID6-5">Taking Medication For Diabetes Long-term Use of Insulin</content>, <content ID="encounterDiagnosisID6-6">Acquired Deformity - Foot Drop</content></td> Attender: Sosa Grissom RN MS TRANSFUSION NURSE [facility] 05/31/2019 07:22: 00 AM EDT - 05/31/2019 08:08:00 AM EDT Taking Medication For Diabetes Long-term Use of InsulinTaking Medication For Diabetes Long-term Use of InsulinTaking Medication For Diabetes Long-term Use of InsulinTaking Medication For Diabetes Long-term Use of InsulinTaking Medication For Diabetes Long-term Use of InsulinAcquired Deformity - Foot DropAcquired Deformity - Foot DropAcquired Deformity - Foot DropAcquired Deformity - Foot DropVitamin D DeficiencyVitamin D DeficiencyVitamin D DeficiencyVitamin D DeficiencyVitamin D DeficiencyDiabetes Mellitus Type 2Diabetes Mellitus Type 2Diabetes Mellitus Type 2Diabetes Mellitus Type 2Diabetes Mellitus Type 2HyperlipidemiaHyperlipidemiaHyperlipidem iaHyperlipidemiaHyperlipidemiaPeripheral Vascular DiseaseHypertension (systemic)Peripheral Vascular DiseaseHypertension (systemic)Peripheral Vascular DiseaseHypertension (systemic)Peripheral Vascular DiseaseHypertension (systemic) Peripheral Vascular DiseaseHypertension (systemic) [facility] ([facility]) Taking Medication For Diabetes Long-term Use of Insulin Taking Medication For Diabetes Long-term Use of Insulin Taking Medication For Diabetes Long-term Use of Insulin Taking Medication For Diabetes Long-term Use of Insulin Taking Medication For Diabetes Long-term Use of Insulin Acquired Deformity - Foot Drop Acquired Deformity - Foot Drop Acquired Deformity - Foot Drop Acquired Deformity - Foot Drop Vitamin D Deficiency Vitamin D Deficiency Vitamin D Deficiency Vitamin D Deficiency Vitamin D Deficiency Diabetes Mellitus Type 2 Diabetes Mellitus Type 2 Diabetes Mellitus Type 2 Diabetes Mellitus Type 2 Diabetes Mellitus Type 2 Hyperlipidemia Hyperlipidemia Hyperlipidemia Hyperlipidemia Hyperlipidemia Peripheral Vascular Disease Hypertension (systemic) Peripheral Vascular Disease Hypertension (systemic) Peripheral Vascular Disease Hypertension (systemic) Peripheral Vascular Disease Hypertension (systemic) Peripheral Vascular Disease Hypertension (systemic) Unknown<td ID="encounterTypeDescriptionI D7">Chart Update</td><td>Sosa Grissom NP</td><td></td><td>05/29/2019</td><td></td> Attender: Sosa Grissom RN MS TRANSFUSION NURSE CDE 05/29/2019 08:03:00 AM EDT - 05/29/2019 11:59:00 PM EDT [facility] ([facility]) Outpatient Attender: Nolvia Aceves NP 05/16/2019 07:05: 00 AM [facility] lab Unknown<td ID="encounterTypeDescriptionI D8">[Patient Encounter]</td><td>Sosa Grissom NP</td><td></td><td>05/11/2019</td><td></td> Attender: Sosa Grissom RN MS TRANSFUSION NURSE CDE 05/11/2019 09:51:00 AM EST - 05/11/2019 11:59:00 PM EST [facility] ([facility]) Unknown<td ID="encounterTypeDescriptionI D9">Chart Update</td><td>Sosa Grissom NP</td><td></td><td>04/11/2019</td><td></td> Attender: Sosa Grissom RN MS TRANSFUSION NURSE CDE 04/11/2019 10:07:00 AM EST - 04/11/2019 11:59:00 PM EST [place] ([facility]) Outpatient Attender: Darlin Osorio RNAttender: Hal Car MD, [facility] [email or web address] 04/05/2019 08:22:28 AM EST - 04/05/2019 08:57:51 AM EST [facility] Unknown<td ID="encounterTypeDescriptionI D8">Chart Update</td><td>Sosa Grissom NP</td><td></td><td>03/01/2019</td><td></td> Attender: Sosa Grissom RN MS TRANSFUSION NURSE E 03/01/2019 04:23:00 PM EST - 03/01/2019 11:59:00 PM [facility]) Outpatient [email or web address] 01/29/2019 11:28:01 AM EST [facility] Outpatient Attender: AURORA ORONAAdm itter: AURORA ORONAReferrer: AURORA ORONA 11/15/2018 12:00:00 AM EDT - 11/15/2018 11:59:00 PM EDT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 [facility]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 Immunizations Vaccine Date Status Description Data Source(s) INFLUENZA VACCINE QUADRIVALENT (65 YR UP)/MF59 C.1/PF 03/24/2020 12:00:00 AM EST [facility] Drugs Medications Medication Brand Name Start Date Product Form Dose Route Admi nistrative Instructions Pharmacy Instructions Status Indications Reaction Description Data Source(s) doxycycline hyclate 100 MG Oral Capsule Doxycycline Hyclate 01/06/2020 12:00:00 AM EDT active [facility] ([facility]) doxycycline hyclate 100 MG Oral Capsule DOXYCYCLINE HYCLATE 01/06/2020 12:00:00 AM EDT capsule 14 TAKE ONE CAPSULE BY MOUTH TW ICE A DAY FOR 7 DAYS WITH FOOD TAKE ONE CAPSULE BY MOUTH TWICE A DAY FOR 7 DAYS WITH FOOD SOLD: 01/06/2020 [facility] Acarbose 25 MG Oral Tablet Acarbose 25 MG Oral Tablet 2019 12:00:00 AM EDT aborted acarbose 25 MG O ral Tablet [facility] ([facility]) OneTouch Delica Lancets 33G Miscellaneous OneTouch Del ica Lancets 33G Miscellaneous 10/08/2019 12:00:00 AM EDT acti ve OneTouch Delica Lancets 33G [facility] ([facility]) Acarbose 25 MG Oral Tablet Acarbose 25 MG Oral Tablet 2019 12:00:00 AM EDT active acarbose 25 MG Or al Tablet [facility] ([facility]) OneTouch Verio w/Device Kit OneTouch Verio w/Device Kit 05/19 12:00:00 AM EDT completed OneTouch Verio [facility] ([facility]) OneTouch Verio w/Device Kit OneTouch Verio w/Device Kit 05/19 12:00:00 AM EDT completed OneTouch Verio [facility] ([facility]) OneTouch Delica Lancets 33G Miscellaneous OneTouch Del ica Lancets 33G Miscellaneous 06/05/2019 12:00:00 AM EDT comp leted OneTouch Delica Lancets 33G [facility] ([facility]) OneTouch Delica Lancets 33G Miscellaneous OneTouch Del ica Lancets 33G Miscellaneous 06/05/2019 12:00:00 AM EDT abor yina OneTouch Delica Lancets 33G [facility] ([facility]) OneTouch Verio In Vitro Strip OneTouch Verio In Vitro Strip 06/05/2019 12:00:00 AM EDT completed OneTouch Verio [facility] ([facility]) OneTouch Verio In Vitro Strip OneTouch Verio In Vitro Strip 06/05/2019 12:00:00 AM EDT completed OneTouch Verio [facility] ([facility]) OneTouch Delica Lancing Dev Miscellaneous OneTouch Del ica Lancing Dev Miscellaneous 06/05/2019 12:00:00 AM EDT comp leted OneTouch Delica Lancing Dev [facility] ([facility]) OneTouch Delica Lancing Dev Miscellaneous OneTouch Del ica Lancing Dev Miscellaneous 06/05/2019 12:00:00 AM EDT comp leted OneTouch Delica Lancing Dev [facility] ([facility]) Accu-Chek Laverne Plus In Vitro Strip Accu-Chek Laverne Plus In Vitro Strip 06/01/2019 12:00:00 AM EDT active Accu-Chek Laverne Plus [place] ([facility]) Hydrochlorothiazide 12.5 MG Oral Tablet hydroCHLOROthi azide 12.5 MG Oral Tablet hydroCHLOROthiazide 12.5 MG Oral Tablet 06/01/2019 12:00:00 AM EDT active hydrochlorothiazide 12.5 MG Oral Tablet [facility] ([facility]) Acarbose 25 MG Oral Tablet Acarbose 25 MG Oral Tablet 2019 12:00:00 AM EDT aborted acarbose 25 MG O ral Tablet [place] ([facility]) montelukast 10 MG Oral Tablet Montelukast Sodium 10 MG Oral Tablet Montelukast Sodium 10 MG Oral Tablet 06/01/2019 12:00:00 AM EDT 1 active montelukast 10 MG Oral Tablet [place] ([facility]) atorvastatin 40 MG Oral Tablet Atorvastatin Calcium 40 MG Oral Tablet Atorvastatin Calcium 40 MG Oral Tablet 06/01/2019 12:00:00 AM EDT 1 active atorvastatin 40 MG Oral Tablet [facility] ([facility]) BD Swab Single Use Regular Pad BD Swab Single Use Regular Pa d 06/01/2019 12:00:00 AM EDT active BD Swab Single Use Regular [facility] ([facility]) glimepiride 4 MG Oral Tablet Glimepiride 4 MG Oral Tab let Glimepiride 4 MG Oral Tablet 06/01/2019 12:00:00 AM EDT active glimepiride 4 MG Oral Tablet [facility] ([facility]) 24 HR Metformin hydrochloride 500 MG Ext ended Release Oral Tablet metFORMIN HCl ER 500 MG Oral Tablet Extended Release 24 Hour metFORMIN HCl ER 500 MG Oral Tablet Extended Release 24 Hour 06/01/2019 12:00:00 AM EDT 1 active 24 HR metformin hydrochloride 500 MG Extended Release Oral Tablet [facility] ([facility]) Hydrochlorothiazide 12.5 MG Oral Tablet hydroCHLOROthi azide 12.5 MG Oral Tablet hydroCHLOROthiazide 12.5 MG Oral Tablet 05/31/2019 12:00:00 AM EDT aborted hydrochlorothiazide 12.5 MG Oral Tablet [facility] ([facility]) 40 mg 05/31/2019 12:00:00 AM EDT tablet 90 TAKE ONE TABLET BY MOUTH EVERY DAY TAKE ONE TABLET BY MOUTH EVERY DAY SOLD: 06/01/2019 [employer] 24 HR Metformin hydrochloride 500 MG Ext ended Release Oral Tablet metFORMIN HCl ER 500 MG Oral Tablet Extended Release 24 Hour metFORMIN HCl ER 500 MG Oral Tablet Extended Release 24 Hour 05/31/2019 12:00:00 AM EDT 1 aborted 24 HR metformin hydrochloride 500 MG Extended Release Oral Tablet [facility] ([facility]) glimepiride 4 MG Oral Tablet Glimepiride 4 MG Oral Tab let Glimepiride 4 MG Oral Tablet 05/31/2019 12:00:00 AM EDT aborted glimepiride 4 MG Oral Tablet [facility] ([facility]) 12.5 mg 05/31/2019 12:00:00 AM EDT tablet 45 TAKE ONE HALF TABLET BY MOUTH DAILY TAKE ONE HALF TABLET BY MOUTH DAILY SOLD: 06/01/2019 [facility] atorvastatin 40 MG Oral Tablet Atorvastatin Calcium 40 MG Oral Tablet Atorvastatin Calcium 40 MG Oral Tablet 05/31/2019 12:00:00 AM EDT 1 aborted atorvastatin 40 MG Oral Tablet G [facility] ([facility]) 500 mg 05/31/2019 12:00:00 AM EDT tablet extended release 24 hr 180 TAKE 1 TABLET BY MOUTH WITH BREAKFAST AND 1 TABLET WITH SUPPER TAKE 1 TABLET BY MOUTH WITH BREAKFAST AND 1 TABLET WITH SUPPER SOLD: 06/01/2019 [facility] glimepiride 4 MG Oral Tablet GLIMEPIRIDE 05/31/2019 12:00:00 AM EDT t ablet 180 TAKE 1 TABLET BY MOUTH WITH BREAKFAST AND 1 TABLET WIT H SUPPER TAKE 1 TABLET BY MOUTH WITH BREAKFAST AND 1 TABLET WITH SUPPER SOLD: 06/01/2019 [facility] Acarbose 25 MG Oral Tablet Acarbose 25 MG Oral Tablet 2019 12:00:00 AM EDT aborted acarbose 25 MG O ral Tablet [place] ([facility]) montelukast 10 MG Oral Tablet [Singulair] Singulair 10 MG Oral Tablet Singulair 10 MG Oral Tablet 05/31/2019 12:00:00 AM EDT 1 aborted montelukast 10 MG Oral Tablet [Singulair] [facility] ([facility]) 24 HR Metformin hydrochloride 500 MG Ext ended Release Oral Tablet metFORMIN HCl ER 500 MG Oral Tablet Extended Release 24 Hour metFORMIN HCl ER 500 MG Oral Tablet Extended Release 24 Hour 01/30/2019 12:00:00 AM EST 1 aborted 24 HR metformin hydrochloride 500 MG Extended Release Oral Tablet [place] ([facility]) Acarbose 25 MG Oral Tablet Acarbose 25MG Oral Tablet Acarbos e 25MG Oral Tablet 12/01/2018 12:00:00 AM EDT aborted acarbose 25 MG Oral Tablet [place] ([facility]) montelukast 10 MG Oral Tablet [Singulair] Singulair 10 MG Oral Tablet Singulair 10MG Oral Tablet 12/01/2018 12:00:00 AM EDT 1 a borted montelukast 10 MG Oral Tablet [Singulair] [place] ([facility]) glimepiride 4 MG Oral Tablet Glimepiride 4MG Oral Tabl et Glimepiride 4MG Oral Tablet 07/12/2018 12:00:00 AM EDT aborted glimepiride 4 MG Oral Tablet [place] ([facility]) Accu-Chek Laverne Plus In Vitro Strip Accu-Chek Laverne Plus In Vitro Strip 07/12/2018 12:00:00 AM EDT aborted Accu-Chek Laverne Plus [place] ([facility]) atorvastatin 40 MG Oral Tablet Atorvastatin Calcium 40 MG Oral Tablet Atorvastatin Calcium 40MG Oral Tablet 07/12/2018 12:00:00 AM EDT 1 aborted atorvastatin 40 MG Oral Tablet [facility]) BD Swab Single Use Regular Pad BD Swab Single Use Regular Pa d 07/12/2018 12:00:00 AM EDT aborted BD Swab Single Use Regular [facility] ([facility]) Hydrochlorothiazide 12.5 MG Oral Tablet HydroCHLOROthi azide 12.5MG Oral Tablet HydroCHLOROthiazide 12.5MG Oral Tablet 01/11/2018 12:00:00 AM EDT aborted hydrochlorothiazide 12.5 MG Oral Tablet [facility] ([facility]) Insurance Providers Payer name Policy type / Coverage type Policy ID Covered constitution party ID Covered constitution party's relationship to garzon Policy Garzon Plan Information HUMANA GOLD [id number] SP [id number] 1 [employer] Other 0 Self 0 WELLCARE MEDICARE [id number] Rianna [id number] [employer] Other 0 Self 0 [employer] Other 0 Self 0 [employer] Other 0 Self 0 [employer] Other 0 Self 0 SELF PAY WellCare MCR Todays Options [id number] SP [id number] HUMANA MEDICARE ADVANTAGE G [id number] Self [id number] MEDICARE [id number] Rianna [id number] MEDICARE [id number] Rianna [id number] [id number] HUMANA MEDICARE [id number] Rianna [id number] [facility] [id number] Rianna [id number] Humana Care Plan Other 0 Self 0 MEDICARE [id number] Rianna [id number] A Humana Care Plan Other 0 Self 0 HUMANA PPO [id number] SP [id number] HUMANA H [id number] Self [id number] Humana Care Plan Other 0 Self 0 SELF PAY HUMANA MEDICARE ADV [id number] SP [id number] HUMANA PPO [id number] SP [id number] [facility] HE[facility] OPTIONS [id number] SP [id number] MEDICARE [id number] SP [id number] A Humana Care Plan Other 0 Self 0 SELF PAY HUMANA MEDICARE ADV [id number] SP [id number] SELF PAY HUMANA MEDICARE ADV [id number] SP [id number] Humana Care Plan Other 0 Self 0 Humana Care Plan Other 0 Self 0 Humana Care Plan Other 0 Self 0 HUMANA MEDICARE ADV [id number] SP [id number] Medicare Part A of [facility] Other 0 Self 0 Medicare Part A of [facility] Other 0 Self 0 Medicare Part A of [facility] Other 0 Self 0 Medicare Part A of [facility] Other 0 Self 0 Humana Care Plan Other 0 Self 0 AARP HEALTHCARE OPTIONS [id number] SP [id number] MEDICARE [id number] SP [id number] A [facility] ProtAb [facility] Workers Compensation [id number] Self [id number] [facility] ProtAb [facility] Workers Compensation [id number] Self [id number] [facility] Options Medigap Part B [id number] Self [id number] [place] Primary [id number] Self [id number] [facility] UNAVAILABLE UNAVAILABLE AARP HEALTHCARE OPTIONS [id number] SP [id number] [facility] ProtAb [facility]) Workers Compensation [id number] Self [id number] [facility]) Workers Compensation [id number] Self [id number] [facility] Options Medigap Part B [id number] Self [id number] Medicare [place] Medicare Primary [id number] Self [id number] AARP HE[employer] CARE OPTIONS UNAVAILABLE SP UNAVAILABLE AARP HEALTH CARE O [id number] S [id number] MEDICARE M [id number] S [id number] A AARP S [id number] S [id number] AARP S [id number] S [id number] MEDICARE P [id number] S [id number] A [id number] A Problems, Conditions, and Diagnoses Code Display Name Description Problem Type Effective Dates Data Source(s) I45.10 Unspecified right bundle-branch block Un specified right bundle-branch block Diagnosis 11/08/2019 03:31:31 PM EDT [facility] I71.2 Thoracic aortic aneurysm, without ruptur e Thoracic aortic aneurysm, without ruptur Diagnosis 11/08/2019 03:31:31 PM EDT [facility] E78.2 Mixed hyperlipidemia Mixed hyperlipidemia Diagnosis 11/08/2019 03:31:31 PM EDT [facility] 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 Coronary atherosclerosis due to calcifie Diagnosis 11/08/2019 03:31:31 PM EDT [facility] I25.10 Atherosclerotic heart diseas e of [place] coronary artery without angina pectoris Atherosclerotic heart disease of [place] Diagnosis 11/08/2019 03:31:31 PM EDT [facility] E78.2 Mixed hyperlipidemia E78.2 - Mixed hyperlipidemia Diag nosis 05/16/2019 07:05:00 AM EST [facility] E11.9 Type 2 diabetes mellitus without complic ations Type 2 diabetes mellitus without complic Diagnosis 04/05/2019 08:22:28 AM EST [facility] I10 Essential (primary) hypertension Essential (primary) h ypertension Diagnosis 04/05/2019 08:22:28 AM EST [facility] Surgeries/Procedures Procedure Description Date Indications Data Source(s) Past medical history -Please see Problem List for Act maxine Chronic Problems Past medical history -Please see Problem List for Active Chronic Problems 10/08/2019 12:00:00 AM EDT [facility] ([facility]) History of tonsillectomy History of tonsillectomy 10/08/2019 12:00: 00 AM EDT [facility] ([facility]) History of orthopedic surgery left knee replacement H istory of orthopedic surgery left knee replacement 10/08/2019 12:00:00 AM EDT [facility] ([facility]) History of back surgery History of back surgery 10/08/2019 12:00:00 AM EDT [facility] ([facility]) Surgical / procedural history - TURP Surgical / procedural history - TURP 10/08/2019 12:00:00 AM EDT [facility] ([facility]) Removal Impacted Cerumen (separate Procedure), One or Both E (Left) Removal Impacted Cerumen (separate Procedure), One or Both E (Left) 10/08/2019 12:00:00 AM EDT [facility] ([facility]) Hemoglobin; Glycated A1c (QW) Hemoglobin; Glycated A1c (QW) 10/08/2019 12:00:00 AM EDT [facility] ([facility]) Removal Impacted Cerumen (separate Procedure), One or Both E Removal Impacted Cerumen (separate Procedure), One or Both E 10/08/2019 12:00:00 AM EDT [facility] ([facility]) RADEX ANKLE COMPLETE MINIMUM 3 VIEWS 09/18/2019 12:00: 00 AM EDT [facility] ([facility] ) Hemoglobin; Glycated A1c (QW) Hemoglobin; Glycated A1c (QW) 05/31/2019 12:00:00 AM EDT [facility] ([facility]) Hemoglobin; Glycated A1c Hemoglobin; Glycated A1c 05/31/2019 12:00: 00 AM EDT [facility] ([facility]) Results ID Date Data Source [id number] 10/19/2019 06:01:00 PM EDT [facility]) EXAM: Spine lumbosacral INDICATION: LO WER BACK PAIN COMPARISON: No prior comparison available. TECHNIQUE: Five views of the lumbar spine were obtained. FINDINGS: There are five nonrib-bearing lumbar-type vertebral bodies. There is a chronic appearing mild compression deformity along the superior endplate of L1 Normal lumbar lordosis without spondylolisthesis. There is a large bridging osteophyte at the left aspect of L2-L3. There is diffuse moderate disc space narrowing most pronounced at L3-L4. 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 There is moderate to severe facet arthropathy in the lower lumbar spine. There is a large amount of stool in the visualized colon. Atherosclerosis is noted. IMPRESSION: No definite acute fracture or subluxation. Chronic appearing mild compression deformity along the superior endplate of L1. Diffuse moderate lumbar spine degenerative changes. Moderate stool burden. Professional interpretation per formed at [facility] . Name Value Range Interpretation Code Description Data Debra rce(s) Supporting Document(s) ID Date Data Source [id number] 10/08/2019 07:45:00 AM EDT HARJINDER ([facility]) Name Value Range Interpretation Code Description Data Debra rce(s) Supporting Document(s) Hemoglobin A1c/Hemoglobin.total in Blood 8.8 Abnormal (applies to non-numeric results) Hgb A1c [facility] ID Date Data Source [id number] 05/31/2019 07:48:00 AM EDT [facility] Name Value Range Interpretation Code Description Data Debra rce(s) Supporting Document(s) Hemoglobin A1c/Hemoglobin.total in Blood 11.1 Above high normal Hgb A1c [facility] ID Date Data Source [id number] 05/16/2019 01:25:00 PM [facility] Name Value Range Interpretation Code Description Data Debra rce(s) Supporting Document(s) WHITE BLOOD COUNT 6.39 10^3/uL 4.00-10.50 [facility] RED BLOOD COUNT 5.20 10^6/uL 4.30-5.80 [facility] HEMOGLOBIN 14.7 G/DL 13.0-17.5 [facility] HEMATOCRIT 44.8 % 41.0-53.0 [facility] MCV 86.2 FL 80.0-100.0 [facility] MCH 28.3 PG 27.0-34.0 [facility] MCHC 32.8 G/DL 32-36 [facility] RDW 13.7 % 11.5-14.5 [facility] PLATELET COUNT 233 10^3/uL 130-400 [facility] MPV 10.7 FL 8.7-13.2 N [facility] GRAN % (AUTO) 54.9 % 42.0-75.0 N [facility] LYMPH % (AUTO) 31.6 % 20.0-51.0 N [facility] MONO % (AUTO) 9.1 % 2.0-15.0 N [facility] EOS % (AUTO) 2.8 % 0.0-11.0 N [facility] BASO % (AUTO) 0.8 % 0.0-2.0 N [facility] IG % (AUTO) 0.8 % 1.00-5.00 [facility] IG # (AUTO) 0.1 10^3/uL <0.5 [facility] GRAN # (AUTO) 3.51 10^3/uL 1.50-6.50 [facility] LYMPH # (AUTO) 2.0 k/uL 1.0-5.0 [facility] MONO # (AUTO) 0.58 k/uL 0.20-1.50 [facility] EOS # (AUTO) 0.18 10^3/uL 0.00-1.10 [facility] BASO # (AUTO) 0.05 10^3/uL 0.00-0.20 N [facility] ID Date Data Source [id number] 05/16/2019 03:07:00 PM EST [facility] Name Value Range Interpretation Code Description Data Debra rce(s) Supporting Document(s) BILIRUBIN,TOTAL 0.8 MG/DL 0.1-1.3 [facility] BILIRUBIN,DIRECT 0.3 MG/DL 0-0.4 [facility] AST 24 U/L 5-40 [facility] ALT 28 U/L 5-48 [facility] ALKALINE PHOSPHATASE 90 U/L 40-140 [facility] TOTAL PROTEIN 6.8 G/DL 5.9-8.3 [facility] ALBUMIN 4.7 G/DL 3.0-5.1 [facility] GLOBULIN 2.1 G/DL 1.5-3.5 [facility] ALB/GLOB RATIO 2.2 G/DL 1.0-2.7 [facility] ID Date Data Source [id number] 05/18/2019 07:47:00 AM [facility] Name Value Range Interpretation Code Description Data Debra rce(s) Supporting Document(s) Creatine Kinase,Total,S 226 U/L 24-204 [facility] Macro CK Type 2,S 0 % Not Observed [facility] CK-MM,S 100 % 97-100 [facility] Macro CK Type 1,S 0 % Not Observed [facility] CK-MB,S 0 % 0-3 [facility] CK-BB,S 0 % 0 [facility] Performed at: RN - [facility] [address] [id number] Component Inspector: Sofía Silva MD, Phone: [phone] ID Date Data Source [id number] 05/16/2019 03:07:00 PM [facility] Name Value Range Interpretation Code Description Data Debra rce(s) Supporting Document(s) SODIUM 144 MEQ/L 135-145 [facility] POTASSIUM 3.7 MEQ/L 3.5-5.3 [facility] CHLORIDE 105 MEQ/L 94-110 [facility] CARBON DIOXIDE 27 MEQ/L 22-33 [facility] ANION GAP 16 5-16 [facility] BLOOD UREA NITRO 25 MG/DL 7-25 [facility] CREATININE 1.3 MG/DL 0.6-1.4 [facility] GFR 54.1 ML/MIN [facility] Stage G3a - Mildly to moderately decrea sed kidney function The GFR is an estimate of the Glomerular Filtration Rate. It is an aid to assess a patient's renal function. It is not a conclusive diagnosis of kidney disease. GFR normal is >=90 The MDRD GFR calculation is considered valid between the ages of 18 and 75 years only. BUN/CREAT RATIO 19 8-36 N [facility] GLUCOSE 195 MG/DL 70-100 H [facility] CA 9.6 MG/DL 8.7-10.5 N [facility] ID Date Data Source [id number] 05/16/2019 03:07:00 PM EST [facility] Name Value Range Interpretation Code Description Data Debra rce(s) Supporting Document(s) TRIGLYCERIDES 94 MG/DL 45-150 [facility] CHOLESTEROL 149 MG/DL 125-200 [facility] LDL CHOLESTEROL 91 MG/DL 50-[facility] HDL CHOLESTEROL 39 MG/DL 39-96 N [place] CHOL/HDL RATIO 3.8 0-4.9 [facility] [place] [facility] Procedure Social History Code Duration Value Status Description Data Source(s ) Smoking 10/08/2019 12:00:00 AM EDT Smokes tobacco daily (findi ng) completed Smokes tobacco daily (finding) [facility] ([facility]) Smoking 05/31/2019 12:00:00 AM EDT Ex-smoker (finding) complet ed Ex-smoker (finding) [place] ([facility]) Vital Signs ID Date Data Source UNK Name Value Range Interpretation Code Description Data Source(s) Body mass index (BMI) [Ratio] 30.1 kg/m2 30.1 k g/m2 [facility]) Body height 70 [in_i] 70 [in_i] [facility] ([facility]) 5'10" Body weight 210.00 [lb_av] 210.00 [lb_av] MEDEN T ([facility]) Body temperature 98.4 [degF] 98.4 [degF] [facility] ([facility]) Oxygen saturation in Arterial blood by Pulse oximetry 96 % 96 % [facility] ([facility] Respiratory rate 17 /min 17 /min [facility] ( [facility]) Heart rate 66 /min 66 /min [facility] ([facility]) Diastolic blood pressure 78 mm[Hg] 78 mm[Hg] MEDENT ([facility]) Systolic blood pressure 134 mm[Hg] 134 mm[Hg] M EDENT ([facility]) Inhaled oxygen concentration 21 % 21 % [facility] ([facility]) Inhaled oxygen flow rate 0 L/min 0 L/min [facility] ([facility]) Oxygen saturation in Arterial blood by Pulse oximetry 96 % 96 % [facility] ([facility]) PhenX - pain, abdominal - type and intensity protocol 0 0 [facility] ([facility]) Body weight 209 [lb_av] 209 [lb_av] [facility] ([facility]) Body temperature 97.3 [degF] 97.3 [degF] [facility] AY ([facility]) Respiratory rate 18 /min 18 /min [facility] ([facility]) Heart rate rhythm 1 1 [place] ([facility]) Heart rate 72 /min 72 /min [facility] ([facility]) Diastolic blood pressure 88 mm[Hg] 88 mm[Hg] [facility] ([facility]) Systolic blood pressure 148 mm[Hg] 148 mm[Hg] G [place] ([facility]) Body mass index (BMI) [Ratio] 29.9 kg/m2 29.9 k g/m2 [facility] ([facility] ) Body weight 208.50 [lb_av] 208.50 [lb_av] MEDEN T ([facility] ) Body height 70 [in_i] 70 [in_i] [facility] 5'10" Body temperature 97.9 [degF] 97.9 [degF] [facility]) Diastolic blood pressure 80 mm[Hg] 80 mm[Hg] [facility] ([facility]) Systolic blood pressure 124 mm[Hg] 124 mm[Hg] G [place] ([facility]) Inhaled oxygen concentration 21 % 21 % [facility] ([facility]) Inhaled oxygen flow rate 0 L/min 0 L/min [facility] ([facility]) Oxygen saturation in Arterial blood by Pulse oximetry 98 % 98 % [facility] ([facility]) PhenX - pain, abdominal - type and intensity protocol 0 0 [facility] ([facility]) Body surface area Derived from formula 2.17 m2 2.17 m2 [facility] ([facility]) Body mass index (BMI) [Ratio] 29.8 kg/m2 29.8 k g/m2 [facility] ([facility]) Body weight 214 [lb_av] 214 [lb_av] [facility] Body height 71 [in_i] 71 [in_i] [facility] ([facility]) Body temperature 98 [degF] 98 [degF] [facility] ([facility]) Respiratory rate 18 /min 18 /min [facility] ([facility]) Heart rate rhythm 1 1 [facility] Y ([facility]) Heart rate 81 /min 81 /min [facility] ([facility]) Patient Treatment Plan of Care Planned Activity Planned Date Details Description Data Source (s) Acarbose 25 MG Oral Tablet 10/08/2019 12:00:00 AM EDT [facility] ([facility]) OneTouch Delica Lancets 33G Miscellaneous 10/08/2019 12:00:00 AM ED T [place] ([facility]) Acarbose 25 MG Oral Tablet 10/08/2019 12:00:00 AM EDT [facility] ([facility]) OneTouch Verio w/Device Kit 06/05/2019 12:00:00 AM EDT [place] ([facility]) OneTouch Delica Lancing Dev Miscellaneous 06/05/2019 12:00:00 AM ED T [place] ([facility]) OneTouch Verio In Vitro Strip 06/05/2019 12:00:00 AM EDT [facility] ([facility]) OneTouch Delica Lancets 33G Miscellaneous 06/05/2019 12:00:00 AM ED T [facility] ([facility]) Acarbose 25 MG Oral Tablet 06/01/2019 12:00:00 AM EDT [place] ([facility]) atorvastatin 40 MG Oral Tablet 06/01/2019 12:00:00 AM EDT [facility] ([facility]) BD Swab Single Use Regular Pad 06/01/2019 12:00:00 AM EDT [place] ([facility]) glimepiride 4 MG Oral Tablet 06/01/2019 12:00:00 AM [facility] ([facility]) Hydrochlorothiazide 12.5 MG Oral Tablet 06/01/2019 12:00:00 AM [facility] ([facility]) 24 HR Metformin hydrochloride 500 MG Extended Release Oral Tablet 06/01/2019 12:00:00 AM [facility] ([facility]) montelukast 10 MG Oral Tablet 06/01/2019 12:00:00 AM [facility] ([facility]) Accu-Chek Laverne Plus In Vitro Strip 06/01/2019 12:00:00 AM [facility] ([facility]) glimepiride 4 MG Oral Tablet 05/31/2019 12:00:00 AM [facility] ([facility]) 24 HR Metformin hydrochloride 500 MG Extended Release Oral Tablet 05/31/2019 12:00:00 AM [facility] ([facility]) montelukast 10 MG Oral Tablet [Singulair] 05/31/2019 12:00:00 AM ED [facility] ([facility]) Acarbose 25 MG Oral Tablet 05/31/2019 12:00:00 AM [facility] ([facility]) atorvastatin 40 MG Oral Tablet 05/31/2019 12:00:00 AM [facility] ([facility]) Hydrochlorothiazide 12.5 MG Oral Tablet 05/31/2019 12:00:00 AM [facility] ([facility]) 24 HR Metformin hydrochloride 500 MG Extended Release Oral Tablet 01/30/2019 12:00:[address] [facility] ([facility]) montelukast 10 MG Oral Tablet [Singulair] 12/01/2018 12:00:00 AM ED [facility] ([facility]) Acarbose 25 MG Oral Tablet 12/01/2018 12:00:00 AM [facility] ([facility]) Accu-Chek Laverne Plus In Vitro Strip 07/12/2018 12:00:00 AM [facility] ([facility]) atorvastatin 40 MG Oral Tablet 07/12/2018 12:00:00 AM [facility] ([facility]) BD Swab Single Use Regular Pad 07/12/2018 12:00:00 AM [facility] ([facility]) glimepiride 4 MG Oral Tablet 07/12/2018 12:00:00 AM [facility] ([facility])
[2020-04-04] MEDS ORDERED: NS 1,000 ML IV SCH (13:36)
[2020-04-04] MEDS ORDERED: ECOT81TA5 PO (13:43)
[2020-04-04] MEDS ORDERED: ASPIRIN 81 MG CHEW TABLET PO ONE (13:45)
[2020-04-04 14:07] LABS: BASO # 0.1 10^3/uL (0.0-0.2); BASO % 0.6 % (0.0-1.0); EOS # 0.2 10^3/uL (0.0-0.5); EOS % 2.5 % (0.0-3.0); HEMATOCRIT 44.9 % (42.0-52.0); HEMOGLOBIN 14.3 g/dl (13.5-17.5); LYMPH # 2.2 10^3/uL (1.5-5.0); LYMPH % 27.6 % (24.0-44.0); MEAN CORPUSCULAR HEMOGLOBIN 27.7 pg (27.0-33.0); MEAN CORPUSCULAR HGB CONC 31.8 g/dl (32.0-36.5); MONO # 0.6 10^3/uL (0.0-0.8); MONO % 7.2 % (0.0-5.0); NEUTROPHILS # 4.9 10^3/uL (1.5-8.5); PLATELET COUNT, AUTOMATED 242 10^3/uL (150-450); RED BLOOD COUNT 5.16 10^6/uL (4.30-6.10)
[2020-04-04 14:28] LABS: INR 0.94; PROTHROMBIN TIME 12.7 SECONDS (12.5-14.3)
[2020-04-04 14:35] LABS: ALBUMIN 3.9 GM/DL (3.2-5.2); ALT/SGPT 30 U/L (12-78); BILIRUBIN,DIRECT 0.1 MG/DL (0.0-0.2); BILIRUBIN,TOTAL 0.5 MG/DL (0.2-1.0); BLOOD UREA NITROGEN 28 MG/DL (7-18); CALCIUM LEVEL 9.2 MG/DL (8.8-10.2); CARBON DIOXIDE LEVEL 28 MEQ/L (21-32); CHLORIDE LEVEL 102 MEQ/L (98-107); CK-MB VALUE MASS 2.7 NG/ML (<3.6); CPK CREATINE PHOSPHOKINASE 229 U/L (39-308); GLOMERULAR FILTRATION RATE 52.9 (>42); GLUCOSE, FASTING 298 MG/DL (70-100); LIPASE 229 U/L (73-393); MB/CK RELATIVE INDEX 1.18 (< OR =4); POTASSIUM SERUM 4.1 MEQ/L (3.5-5.1); SODIUM LEVEL 138 MEQ/L (136-145); TOTAL PROTEIN 7.4 GM/DL (6.4-8.2); TROPONIN I < 0.02 NG/ML (< 0.10)
[2020-04-04] MEDS ORDERED: LABETALOL 100MG/20ML VIAL IV STA (14:46)
--- NOTE | 2020-04-04 14:47 | REP ---
INDICATION: CHEST PAIN. COMPARISON: 04/24/2013. TECHNIQUE: SINGLE PORTABLE AP VIEW OF THE CHEST WAS PERFORMED. FINDINGS: THERE IS NO ACUTE INFILTRATE OR PULMONARY EDEMA. LUNGS ARE CLEAR. HEART IS NOT SIGNIFICANTLY ENLARGED. MEDIASTINAL SILHOUETTE IS UNREMARKABLE. THE VISUALIZED OSSEOUS STRUCTURES ARE INTACT. IMPRESSION: NO ACUTE PULMONARY DISEASE. <Electronically signed by Lambert Levi > 04/04/20 0514
--- OUTSIDE RECORDS SUMMARY | 2020-04-04 14:55 | CCD ---
Author Author [facility] Organization [facility] Address Unknown Phone Unavailable Care Team Providers Care Dental Instructor Name Role Phone Keyon Car MD, [facility] Unavailable Unavailable Gabris, Keyon Hong MD, [facility] Unavailable Unavailable Gabris, Keyon Hong MD, [facility] Unavailable Unavailable Gabris, Keyon Hong MD, [facility] Unavailable Unavailable Gabris, Keyon Hong MD, [facility] Unavailable Unavailable Gabris, Keyon Hong MD, [facility] Unavailable Unavailable Gabris, Keyon Hong MD, [facility] Unavailable Unavailable Gabris, Keyon Hong MD, [facility] Unavailable Unavailable Gabris, Keyon Hong MD, [facility] Unavailable Unavailable Gabris, Keyon Hong MD, [facility] Unavailable Unavailable Gabris, Keyon Hong MD, [facility] Unavailable Unavailable Gabris, Keyon Hong MD, [facility] Unavailable Unavailable Gabris, Keyon Hong MD, [facility] Unavailable Unavailable Gabris, Keyon Hong MD, [facility] Unavailable Unavailable Gabris, Keyon Hong MD, [facility] Unavailable Unavailable Gabris, Keyon Hong MD, [facility] Unavailable Unavailable Gabris, Keyon Hong MD, [facility] Unavailable Unavailable Gabris, Keyon Hong MD, [facility] Unavailable Unavailable Gabris, Keyon Hong MD, [facility] Unavailable Unavailable Gabris, Keyon Hong MD, [facility] Unavailable Unavailable Gabris, Keyon Hong MD, [facility] Unavailable Unavailable Gabris, Keyon Hong MD, [facility] Unavailable Unavailable Gabris, Keyon Hong MD, [facility] Unavailable Unavailable Gabris, Keyon Hong MD, [facility] Unavailable Unavailable Gabris, Keyon Hong MD, [facility] Unavailable Unavailable Gabris, Keyon Hong MD, [facility] Unavailable Unavailable Gabris, Keyon Hong MD, [facility] Unavailable Unavailable Gabris, Keyon Hong MD, [facility] Unavailable Unavailable Gabris, Keyon Hong MD, [facility] Unavailable Unavailable Gabris, Keyon Hong MD, [facility] Unavailable Unavailable Gabris, Keyon Hong MD, [facility] Unavailable Unavailable Gabris, Keyon Hong MD, [facility] Unavailable Unavailable Gabris, Keyon Hong MD, [facility] Unavailable Unavailable Gabris, Keyon Hong MD, [facility] Unavailable Unavailable Gabris, Keyon Hong MD, [facility] Unavailable Unavailable Gabris, Keyon Hong MD, [facility] Unavailable Unavailable Gabris, Keyon Hong MD, [facility] Unavailable Unavailable Gabris, Keyon Hong MD, [facility] Unavailable Unavailable Gabris, Keyon Hong MD, [facility] Unavailable Unavailable Gabris, Keyon Hong MD, [facility] Unavailable Unavailable Gabris, Keyon Hong MD, [facility] Unavailable Unavailable Gabris, Keyon Hong MD, [facility] Unavailable Unavailable Gabris, Keyon Hong MD, [facility] Unavailable Unavailable Gabris, Keyon Hong MD, [facility] Unavailable Unavailable Gabris, Keyon Hong MD, [facility] Unavailable Unavailable Gabris, Keyon Hong MD, [facility] Unavailable Unavailable Gabris, Keyon Hong MD, [facility] Unavailable Unavailable Gabris, Keyon Hong MD, [facility] Unavailable Unavailable Gabris, Keyon Hong MD, [facility] Unavailable Unavailable Gabris, Keyon Hong MD, [facility] Unavailable Unavailable Gabris, Keyon Hong MD, [facility] Unavailable Unavailable Gabris, Keyon Hong MD, [facility] Unavailable Unavailable Gabris, Keyon Hong MD, [facility] Unavailable Unavailable Gabris, Keyon Hong MD, [facility] Unavailable Unavailable Gabris, Keyon Hong MD, [facility] Unavailable Unavailable Gabris, Keyon Hong MD, [facility] Unavailable Unavailable Gabris, Keyon Hnog MD, [facility] Unavailable Unavailable Gabris, Keyon Hong MD, [facility] Unavailable Unavailable Gabris, Keyon Hong MD, [facility] Unavailable Unavailable Gabris, Keyon Hong MD, [facility] Unavailable Unavailable Gabris, Keyon Hong MD, [facility] Unavailable Unavailable Gabris, Keyon Hong MD, [facility] Unavailable Unavailable Gabris, Keyon Hong MD, [facility] Unavailable Unavailable Gabris, Keyon Hong MD, [facility] Unavailable Unavailable Gabris, Keyon Hong MD, [facility] Unavailable Unavailable Gabris, Keyon Hong MD, [facility] Unavailable Unavailable Gabris, Keyon Hong MD, [facility] Unavailable Unavailable Ravi FragaP Unavailable Unavailable Ravi FragaP Unavailable Unavailable Ravi FragaP Unavailable Unavailable Ravi FragaP Unavailable Unavailable Shaben, E Michell BINDERY TECHNICIAN Unavailable Unavailable Shaben, E Michell BINDERY TECHNICIAN Unavailable Unavailable Shaben, E Michell BINDERY TECHNICIAN Unavailable Unavailable Shaben, E Michell BINDERY TECHNICIAN Unavailable Unavailable Shaben, E Michell BINDERY TECHNICIAN Unavailable Unavailable Shaben, E Michell BINDERY TECHNICIAN Unavailable Unavailable Shaben, E Michell BINDERY TECHNICIAN Unavailable Unavailable Shaben, E Michell BINDERY TECHNICIAN Unavailable Unavailable Shaben, E Michell BINDERY TECHNICIAN Unavailable Unavailable Shaben, E Michell BINDERY TECHNICIAN Unavailable Unavailable Shaben, E Michell BINDERY TECHNICIAN Unavailable Unavailable Shaben, E Michell BINDERY TECHNICIAN Unavailable Unavailable Shaben, E Michell BINDERY TECHNICIAN Unavailable Unavailable Shaben, E Michell BINDERY TECHNICIAN Unavailable Unavailable Shaben, E Michell BINDERY TECHNICIAN Unavailable Unavailable Shaben, E Michell BINDERY TECHNICIAN Unavailable Unavailable Shaben, E Michell BINDERY TECHNICIAN Unavailable Unavailable Shaben, E Michell BINDERY TECHNICIAN Unavailable Unavailable Shaben, E Michell BINDERY TECHNICIAN Unavailable Unavailable Darlin Osorio RN Unavailable Unavailable [...] AURORA Unavailable Unavailable Arya Grissom RN MS BINDERY TECHNICIAN CDE Unavailable UnavailArya Prabhakar RN MS BINDERY TECHNICIAN CDE Unavailable Unavailabl Arya Galvan RN MS BINDERY TECHNICIAN CDE Unavailable Unavailabl Arya Galvan RN MS BINDERY TECHNICIAN CDE Unavailable Unavailabl Arya Galvan RN MS BINDERY TECHNICIAN CDE Unavailable Unavailabl Arya Galvan RN MS BINDERY TECHNICIAN CDE Unavailable Unavailabl Arya Galvan RN MS BINDERY TECHNICIAN CDE Unavailable Unavailabl Arya Galvan RN MS BINDERY TECHNICIAN CDE Unavailable Unavailabl Arya Galvan RN MS BINDERY TECHNICIAN CDE Unavailable Unavailabl Arya Galvan RN MS BINDERY TECHNICIAN CDE Unavailable Unavailabl ravi Grissom, Arya Swan RN MS BINDERY TECHNICIAN CDE Unavailable Unavailabl e Jaciel, Arya Swan RN MS BINDERY TECHNICIAN CDE Unavailable Unavailabl ravi Grissom, Arya Swan RN MS BINDERY TECHNICIAN CDE Unavailable Unavailabl e Jaciel, Arya Swan RN MS BINDERY TECHNICIAN CDE Unavailable Unavailabl e Jaciel, Arya Swan RN MS BINDERY TECHNICIAN CDE Unavailable Unavailabl e Jaciel, Arya Swan RN MS BINDERY TECHNICIAN CDE Unavailable Unavailabl e Jaciel, Arya Swan RN MS BINDERY TECHNICIAN CDE Unavailable Unavailabl e Jaciel, Arya Swan RN MS BINDERY TECHNICIAN CDE Unavailable Unavailabl e Jaciel, Arya Swan RN MS BINDERY TECHNICIAN CDE Unavailable Unavailabl e Jaciel, Arya Swan RN MS BINDERY TECHNICIAN CDE Unavailable Unavailabl e Jaciel, Arya Swan RN MS BINDERY TECHNICIAN CDE Unavailable Unavailabl e Arya Grissom RN MS BINDERY TECHNICIAN CDE Unavailable Unavailabl e Jaciel, Arya Swan RN MS BINDERY TECHNICIAN CDE Unavailable Unavailabl e Jaciel, Arya Swan RN MS BINDERY TECHNICIAN CDE Unavailable Unavailabl e Arya Grissom RN MS BINDERY TECHNICIAN CDE Unavailable Unavailabl ravi Grissom, Arya Swan RN MS BINDERY TECHNICIAN CDE Unavailable Unavailabl ravi Grissom, Arya Swan RN MS BINDERY TECHNICIAN CDE Unavailable Unavailabl Arya Galvan RN MS BINDERY TECHNICIAN CDE Unavailable Unavailabl Arya Galvan RN MS BINDERY TECHNICIAN CDE Unavailable Unavailabl Arya Galvan RN MS BINDERY TECHNICIAN CDE Unavailable Unavailabl Arya Galvan RN MS BINDERY TECHNICIAN CDE Unavailable Unavailabl Arya Galvan RN MS BINDERY TECHNICIAN CDE Unavailable Unavailabl Arya Galvan RN MS BINDERY TECHNICIAN CDE Unavailable Unavailabl Arya Galvan RN MS BINDERY TECHNICIAN CDE Unavailable Unavailabl Arya Galvan RN MS BINDERY TECHNICIAN CDE Unavailable Unavailabl Arya Galvan RN MS BINDERY TECHNICIAN CDE Unavailable Unavailabl Arya Galvan RN MS BINDERY TECHNICIAN CDE Unavailable Unavailabl Arya Galvan RN MS BINDERY TECHNICIAN CDE Unavailable Unavailabl Arya Galvan RN MS BINDERY TECHNICIAN CDE Unavailable Unavailabl e Jaciel, Arya Swan RN MS BINDERY TECHNICIAN CDE Unavailable Unavailabl e Jaciel, Arya Swan RN MS BINDERY TECHNICIAN CDE Unavailable Unavailabl e Jaciel, Arya Swan RN MS BINDERY TECHNICIAN CDE Unavailable Unavailabl e Grissom, Arya Swan RN MS BINDERY TECHNICIAN CDE Unavailable Unavailabl e Grissom, Arya Swan RN MS BINDERY TECHNICIAN CDE Unavailable Unavailabl e Grissom, Arya Swan RN MS BINDERY TECHNICIAN CDE Unavailable Unavailabl e Grissom, Arya Swan RN MS BINDERY TECHNICIAN CDE Unavailable Unavailabl e Grissom, Arya Swan RN MS BINDERY TECHNICIAN CDE Unavailable Unavailabl e Grissom, Arya Swan RN MS BINDERY TECHNICIAN CDE Unavailable Unavailabl e Grissom, Arya Swan RN MS BINDERY TECHNICIAN CDE Unavailable Unavailabl e Jaciel, Arya Swan RN MS BINDERY TECHNICIAN CDE Unavailable Unavailabl e Jaciel, Arya Swan RN MS BINDERY TECHNICIAN CDE Unavailable Unavailabl e Grissom, Arya Swan RN MS BINDERY TECHNICIAN CDE Unavailable Unavailabl e Keating, Eileen Mckay [...] Mckay PA Unavailable Unavailable Julieta, I Savanna SECURITY INFRASTRUCTURE ENGINEER Unavailable Unavailable Julieta, I Savanna SECURITY INFRASTRUCTURE ENGINEER Unavailable Unavailable Julieta, I Savanna SECURITY INFRASTRUCTURE ENGINEER Unavailable Unavailable Julieta, I Savanna SECURITY INFRASTRUCTURE ENGINEER Unavailable Unavailable Julieta, I Savanna SECURITY INFRASTRUCTURE ENGINEER Unavailable Unavailable Julieta, I Savanna SECURITY INFRASTRUCTURE ENGINEER Unavailable Unavailable Julieta, I Savanna SECURITY INFRASTRUCTURE ENGINEER Unavailable Unavailable Julieta, I Savanna SECURITY INFRASTRUCTURE ENGINEER Unavailable Unavailable Julieta, I Savanna SECURITY INFRASTRUCTURE ENGINEER Unavailable Unavailable Julieta, I Savanna SECURITY INFRASTRUCTURE ENGINEER Unavailable Unavailable Julieta, I Savanna SECURITY INFRASTRUCTURE ENGINEER Unavailable Unavailable Julieta, I Savanna SECURITY INFRASTRUCTURE ENGINEER Unavailable Unavailable Julieta, I Savanna SECURITY INFRASTRUCTURE ENGINEER Unavailable Unavailable Julieta, I Savanna SECURITY INFRASTRUCTURE ENGINEER Unavailable Unavailable Julieta, I Savanna SECURITY INFRASTRUCTURE ENGINEER Unavailable Unavailable Julieta, I Savanna SECURITY INFRASTRUCTURE ENGINEER Unavailable Unavailable Julieta, I Savanna SECURITY INFRASTRUCTURE ENGINEER Unavailable Unavailable Julieta, I Savanna SECURITY INFRASTRUCTURE ENGINEER Unavailable Unavailable Julieta, I Savanna SECURITY INFRASTRUCTURE ENGINEER Unavailable Unavailable Julieta, I Savanna SECURITY INFRASTRUCTURE ENGINEER Unavailable Unavailable Julieta, I Savanna SECURITY INFRASTRUCTURE ENGINEER Unavailable Unavailable Julieta, I Savanna SECURITY INFRASTRUCTURE ENGINEER Unavailable Unavailable Julieta, I Savanna SECURITY INFRASTRUCTURE ENGINEER Unavailable Unavailable Julieta, I Savanna SECURITY INFRASTRUCTURE ENGINEER Unavailable Unavailable Julieta, I Savanna SECURITY INFRASTRUCTURE ENGINEER Unavailable Unavailable Julieta, I Savanna SECURITY INFRASTRUCTURE ENGINEER Unavailable Unavailable Julieta, I Savanna SECURITY INFRASTRUCTURE ENGINEER Unavailable Unavailable Julieta, I Savanna SECURITY INFRASTRUCTURE ENGINEER Unavailable Unavailable Julieta, I Savanna SECURITY INFRASTRUCTURE ENGINEER Unavailable Unavailable Julieta, I Savanna SECURITY INFRASTRUCTURE ENGINEER Unavailable Unavailable Julieta, I Savanna SECURITY INFRASTRUCTURE ENGINEER Unavailable Unavailable Julieta, I Savanna SECURITY INFRASTRUCTURE ENGINEER Unavailable Unavailable Julieta, I Savanna SECURITY INFRASTRUCTURE ENGINEER Unavailable Unavailable Julieta, I Savanna SECURITY INFRASTRUCTURE ENGINEER Unavailable Unavailable Julieta, I Savanna SECURITY INFRASTRUCTURE ENGINEER Unavailable Unavailable Julieta, I Savanna SECURITY INFRASTRUCTURE ENGINEER Unavailable Unavailable Julieta, I Savanna SECURITY INFRASTRUCTURE ENGINEER Unavailable Unavailable Julieta, I Savanna SECURITY INFRASTRUCTURE ENGINEER Unavailable Unavailable Julieta, I Savanna SECURITY INFRASTRUCTURE ENGINEER Unavailable Unavailable Julieta, I Savanna SECURITY INFRASTRUCTURE ENGINEER Unavailable Unavailable Julieta, I Savanna SECURITY INFRASTRUCTURE ENGINEER Unavailable Unavailable Julieta, I Savanna SECURITY INFRASTRUCTURE ENGINEER Unavailable Unavailable Julieta, I Savanna SECURITY INFRASTRUCTURE ENGINEER Unavailable Unavailable Julieta, I Savanna SECURITY INFRASTRUCTURE ENGINEER Unavailable Unavailable Julieta, I Savanna SECURITY INFRASTRUCTURE ENGINEER Unavailable Unavailable Julieta, I Savanna SECURITY INFRASTRUCTURE ENGINEER Unavailable Unavailable Julieta, I Savanna SECURITY INFRASTRUCTURE ENGINEER Unavailable Unavailable Julieta, I Savanna SECURITY INFRASTRUCTURE ENGINEER Unavailable Unavailable Julieta, I Savanna SECURITY INFRASTRUCTURE ENGINEER Unavailable Unavailable Julieta, I Savanna SECURITY INFRASTRUCTURE ENGINEER Unavailable Unavailable Julieta, I Savanna SECURITY INFRASTRUCTURE ENGINEER Unavailable Unavailable Julieta, I Savanna SECURITY INFRASTRUCTURE ENGINEER Unavailable Unavailable Jluieta, I Savanna SECURITY INFRASTRUCTURE ENGINEER Unavailable Unavailable Julieta, I Savanna SECURITY INFRASTRUCTURE ENGINEER Unavailable Unavailable Julieta, I Savanna SECURITY INFRASTRUCTURE ENGINEER Unavailable Unavailable Julieta, I Savanna SECURITY INFRASTRUCTURE ENGINEER Unavailable Unavailable Julieta, I Savanna SECURITY INFRASTRUCTURE ENGINEER Unavailable Unavailable Julieta, I Savanna SECURITY INFRASTRUCTURE ENGINEER Unavailable Unavailable Julieta, I Savanna SECURITY INFRASTRUCTURE ENGINEER Unavailable Unavailable Julieta, I Savanna SECURITY INFRASTRUCTURE ENGINEER Unavailable Unavailable Julieta, I Savanna SECURITY INFRASTRUCTURE ENGINEER Unavailable Unavailable Julieta, I Savanna SECURITY INFRASTRUCTURE ENGINEER Unavailable Unavailable Julieta, I Savanna SECURITY INFRASTRUCTURE ENGINEER Unavailable Unavailable Jeannie Aceves SECURITY INFRASTRUCTURE ENGINEER Unavailable Unavailable Jeannie Aceves SECURITY INFRASTRUCTURE ENGINEER Unavailable Unavailable Jeannie Aceves SECURITY INFRASTRUCTURE ENGINEER Unavailable Unavailable Aceves, Jeannie Nolvia SECURITY INFRASTRUCTURE ENGINEER Unavailable Unavailable Aceves, Jeannie Nolvia SECURITY INFRASTRUCTURE ENGINEER Unavailable Unavailable Aceves, Jeannie Nolvia SECURITY INFRASTRUCTURE ENGINEER Unavailable Unavailable Aceves, Jeannie Nolvia SECURITY INFRASTRUCTURE ENGINEER Unavailable Unavailable Aceves, Jeannie Nolvia SECURITY INFRASTRUCTURE ENGINEER Unavailable Unavailable Aceves, Jeannie Nolvia SECURITY INFRASTRUCTURE ENGINEER Unavailable Unavailable Aceves, Jeannie Nolvia SECURITY INFRASTRUCTURE ENGINEER Unavailable Unavailable Aceves, Jeannie Nolvia SECURITY INFRASTRUCTURE ENGINEER Unavailable Unavailable Aceves, Jeannie Nolvia SECURITY INFRASTRUCTURE ENGINEER Unavailable Unavailable COLEMAN, HAN MD Unavailable Unavailable [...] is protected by Article 27-F of the [facility] Public Health law. If you continue you may have access to information: Regarding HIV / AIDS; Provided by facilities licensed or operated by the [facility] Office of Mental Health; or Provided by the [facility] Office for People With Developmental Disabilities. If such information is present, then the following [facility] mandated warning applies: This information has been [...] law may result in a fine or long-term sentence or both. A general authorization for the release of medical or other information is NOT sufficient authorization for further disc losure. Advance Directives Directive Description Underground Roof Bolter Director Ambulatory Status Observation Descr iption Data Source(s) Ebola [...] PM EST - 03/06/2020 11:59:00 PM EST [facility] ([facility]) Outpatient [email or web address] 02/13/2020 03:01:02 PM EST [facility] Outpatient Attender: Nely jaffe 01/06/2020 08:45:00 AM EDT [facility] ([facility]) Outpatient [email or web address] 01/02/2020 09:30:47 AM EDT [facility] Outpatient [email or web address] 11/22/2019 01:47:20 PM EDT [facility] Unknown<td ID="encounterTypeDescriptionI D1">Chart Update</td><td>Michell Fraga NP</td><td></td><td>11/10/2019</td><td></td> Attender: Michell MARIE 11/10/2019 10:06:00 AM EDT - 11/10/2019 11:59:00 PM EDT [facility] ([facility]) Outpatient Attender: Hal Car MD, [facility] [email or web address] [id number] 11/08/2019 03:31:31 PM EDT - 11/08/2019 04:26:58 PM EDT [facility] Outpatient 10/19/2019 05:07:22 PM EDT [facility] ([facility]) Outpatient [email or web address] 10/10/2019 10:14:54 AM EDT [facility] Outpatient<td ID="encounterTypeDescripti onID2">Establish Care</td><td>Michell Fraga NP</td><td>[facility]</td><td>10/08/2019</td><td><content ID="encounterDiagnosisID2-0">Aortic Aneurysm Thoracic Without Rupture</content>, <content ID="encounterDiagnosisID2-1">Benign Prostatic Hypertrophy</content>, <content ID="encounterDiagnosisID2-2">Diabetes Mellitus Type 2</content>, <content ID="encounterDiagnosisID2-3">Hyperlipidemia</content>, <content ID="encounterDiagnosisID2-4">Hypertension (systemic)</content>, <content ID="encounterDiagnosisID2-5">Peripheral Vascular Disease</content>, <content ID="encounterDiagnosisID2-6">Cerumen Impaction</content></td> Attender: Michell Carveraye [facility] 10/08/2019 07:19:00 AM EDT - 10/08/2019 08:44:48 AM EDT Cerumen ImpactionCerumen ImpactionAortic Aneurysm Thoracic Without RuptureAortic Aneurysm Thoracic Without RuptureDiabetes Mellitus Type 2Diabetes Mellitus Type 2Benign Prostatic HypertrophyBenign Prostatic HypertrophyHyperlipidemiaHyperlipidemiaPeripheral Vascular DiseaseHypertension (systemic)Peripheral Vascular DiseaseHypertension (systemic) [facility] Cerumen Impaction Cerumen Impaction Aortic Aneurysm Thoracic Without Rupture Aortic Aneurysm Thoracic Without Rupture Diabetes Mellitus Type 2 Diabetes Mellitus Type 2 Benign Prostatic Hypertrophy Benign Prostatic Hypertrophy Hyperlipidemia Hyperlipidemia Peripheral Vascular Disease Hypertension (systemic) Peripheral Vascular Disease Hypertension (systemic) Outpatient Attender: HAN COLEMAN MD Physical Therapy 02:30:00 PM EDT [facility] ([facility] ) Outpatient [email or web address] 08/28/2019 03:52:55 PM EDT [facility] Outpatient [email or web address] 07/17/2019 04:45:57 PM EDT [facility] Unknown<td ID="encounterTypeDescriptionI D3">[Patient Encounter]</td><td>Savanna Rendon NP</td><td></td><td>06/22/2019</td><td></td> Attender: Savanna Rendon NP 06/22/2019 10:47:00 AM EDT - 06/22/2019 11:59:00 PM EDT [facility] ([facility]) Outpatient<td ID="encounterTypeDescripti onID4">Medication Order</td><td>Sosa Grissom NP</td><td></td><td>06/01/2019</td><td></td> Attender: Sosa Grissom RN MS BINDERY TECHNICIAN [facility] 06/01/2019 02:05:00 PM EDT - 06/01/2019 11:59:00 PM EDT [facility]) Unknown<td ID="encounterTypeDescriptionI D5">Chart Update</td><td>Sosa Grissom NP</td><td></td><td>05/31/2019</td><td></td> Attender: Sosa Grissom RN MS BINDERY TECHNICIAN [facility] 05/31/2019 04:52:00 PM EDT - 05/31/2019 11:59:00 PM EDT [facility] Outpatient<td ID="encounterTypeDescripti onID6">Chronic Disease Follow- up</td><td>Sosa Grissom NP</td><td>[facility]</td><td>05/31/2019</td><td><content ID="encounterDiagnosisID6-0">Diabetes Mellitus Type 2</content>, <content ID="encounterDiagnosisID6- 1">Hyperlipidemia</content>, <content ID="encounterDiagnosisID6-2">Hypertension (systemic)</content>, <content ID="encounterDiagnosisID6-3">Peripheral Vascular Disease</content>, <content ID="encounterDiagnosisID6-4">Vitamin D Deficiency</content>, <content ID="encounterDiagnosisID6-5">Taking Medication For Diabetes Long-term Use of Insulin</content>, <content ID="encounterDiagnosisID6-6">Acquired Deformity - Foot Drop</content></td> Attender: Sosa Grissom RN MS BINDERY TECHNICIAN [facility] 05/31/2019 07:22: 00 AM EDT - [...] DiseaseHypertension (systemic) Peripheral Vascular DiseaseHypertension (systemic) [facility] ([facility]) Taking Medication For Diabetes Long-term Use [...] Grissom NP</td><td></td><td>05/29/2019</td><td></td> Attender: Sosa Grissom RN MS BINDERY TECHNICIAN CDE 05/29/2019 08:03:00 AM EDT - 05/29/2019 11:59:00 PM EDT [facility] ([facility]) Outpatient Attender: Nolvia Aceves NP 05/16/2019 07:05: 00 AM [facility] lab Unknown<td ID="encounterTypeDescriptionI D8">[Patient Encounter]</td><td>Sosa Grissom NP</td><td></td><td>05/11/2019</td><td></td> Attender: Sosa Grissom RN MS BINDERY TECHNICIAN CDE 05/11/2019 09:51:00 AM EST - 05/11/2019 11:59:00 PM EST [facility] ([facility]) Unknown<td ID="encounterTypeDescriptionI D9">Chart Update</td><td>Sosa Grissom NP</td><td></td><td>04/11/2019</td><td></td> Attender: Sosa Grissom RN MS BINDERY TECHNICIAN CDE 04/11/2019 10:07:00 AM EST - 04/11/2019 11:59:00 PM EST [facility] ([facility]) Outpatient Attender: Darlin Osorio RNAttender: Hal Car MD, [facility] [email or web address] 04/05/2019 08:22:28 AM EST - 04/05/2019 08:57:51 AM EST [facility] Unknown<td ID="encounterTypeDescriptionI D8">Chart Update</td><td>Sosa Grissom NP</td><td></td><td>03/01/2019</td><td></td> Attender: Sosa Grissom RN MS BINDERY TECHNICIAN E 03/01/2019 04:23:00 PM EST - 03/01/2019 11:59:00 PM [facility]) Outpatient [email or web address] 01/29/2019 11:28:01 AM EST [facility] Outpatient Attender: AURORA ORONAAdm itter: AURORA ORONAReferrer: AURORA ORONA 11/15/2018 12:00:00 AM EDT - 11/15/2018 11:59:00 PM EDT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 [facility]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 Immunizations Vaccine Date Status Description Data Source(s) INFLUENZA VACCINE QUADRIVALENT (65 YR UP)/MF59 C.1/PF 03/24/2020 12:00:00 AM EST [facility] Drugs Medications Medication Brand Name Start Date Product Form Dose Route Admi nistrative Instructions Pharmacy Instructions Status Indications Reaction Description Data Source(s) doxycycline hyclate 100 MG Oral Capsule Doxycycline Hyclate 01/06/2020 12:00:00 AM EDT active MEDENT ([facility], [facility]) doxycycline hyclate 100 MG Oral Capsule [...] 12:00:00 AM EDT completed OneTouch Verio HARJINDER ([facility]) OneTouch Verio In Vitro Strip OneTouch Verio In Vitro Strip 06/05/2019 12:00:00 AM EDT completed OneTouch Verio HARJINDER ([facility]) OneTouch Delica Lancing Dev Miscellaneous OneTouch Del ica Lancing Dev Miscellaneous 06/05/2019 12:00:00 AM EDT comp leted OneTouch Delica Lancing Dev HARJINDER ([facility]) OneTouch Delica Lancing Dev Miscellaneous OneTouch Del ica Lancing Dev Miscellaneous 06/05/2019 12:00:00 AM EDT comp leted OneTouch Delica Lancing Dev HARJINDER ([facility]) Accu-Chek Laverne Plus In Vitro Strip Accu-Chek Laverne Plus In Vitro Strip 06/01/2019 12:00:00 AM EDT active Accu-Chek Laverne Plus RISINGSUN ([facility]) Hydrochlorothiazide 12.5 MG Oral Tablet hydroCHLOROthi azide 12.5 MG Oral Tablet hydroCHLOROthiazide 12.5 MG Oral Tablet 06/01/2019 12:00:00 AM EDT active hydrochlorothiazide 12.5 MG Oral Tablet HARJINDER ([facility]) Acarbose 25 MG Oral Tablet Acarbose 25 MG Oral Tablet 2019 12:00:00 AM EDT aborted acarbose 25 MG O ral Tablet RISINGSUN ([facility]) montelukast 10 MG Oral Tablet Montelukast Sodium 10 MG Oral Tablet Montelukast Sodium 10 MG Oral Tablet 06/01/2019 12:00:00 AM EDT 1 active montelukast 10 MG Oral Tablet RISINGSUN ([facility]) atorvastatin 40 MG Oral Tablet Atorvastatin Calcium 40 MG Oral Tablet Atorvastatin Calcium 40 MG Oral Tablet 06/01/2019 12:00:00 AM EDT 1 active atorvastatin [address] [facility] ([facility]) BD Swab Single Use Regular Pad BD Swab Single Use Regular Pa d 06/01/2019 12:00:00 AM EDT active BD Swab Single Use Regular HARJINDER ([facility]) glimepiride 4 MG Oral Tablet Glimepiride [...] TABLET BY MOUTH EVERY DAY SOLD: 06/01/2019 [facility] ([employer] 24 HR Metformin hydrochloride 500 MG Ext [...] HALF TABLET BY MOUTH DAILY SOLD: 06/01/2019 [facility] atorvastatin 40 MG Oral Tablet Atorvastatin [...] AND 1 TABLET WITH SUPPER SOLD: 06/01/2019 [facility] glimepiride 4 MG Oral Tablet GLIMEPIRIDE [...] aborted acarbose 25 MG O ral Tablet RISINGSUN ([facility]) montelukast 10 MG Oral Tablet [Singulair] Singulair 10 MG Oral Tablet Singulair 10 MG Oral Tablet 05/31/2019 12:00:00 AM EDT 1 aborted montelukast 10 MG Oral Tablet [Singulair] RISINGSUN ([facility]) 24 HR Metformin hydrochloride 500 MG Ext ended Release Oral Tablet metFORMIN HCl ER 500 MG Oral Tablet Extended Release 24 Hour metFORMIN HCl ER 500 MG Oral Tablet Extended Release 24 Hour 01/30/2019 12:00:00 AM EST 1 aborted 24 HR metformin hydrochloride 500 MG Extended Release Oral Tablet RISINGSUN ([facility]) Acarbose 25 MG Oral Tablet Acarbose 25MG Oral Tablet Acarbos e 25MG Oral Tablet 12/01/2018 12:00:00 AM EDT aborted acarbose 25 MG Oral Tablet RISINGSUN ([facility]) montelukast 10 MG Oral Tablet [Singulair] Singulair 10 MG Oral Tablet Singulair 10MG Oral Tablet 12/01/2018 12:00:00 AM EDT 1 a borted montelukast 10 MG Oral Tablet [Singulair] RISINGSUN ([facility]) glimepiride 4 MG Oral Tablet Glimepiride 4MG Oral Tabl et Glimepiride 4MG Oral Tablet 07/12/2018 12:00:00 AM EDT aborted glimepiride 4 MG Oral Tablet RISINGSUN ([facility]) Accu-Chek Laverne Plus In Vitro Strip Accu-Chek Laverne Plus In Vitro Strip 07/12/2018 12:00:00 AM EDT aborted Accu-Chek Laverne Plus RISINGSUN ([facility]) atorvastatin 40 MG Oral Tablet Atorvastatin Calcium 40 MG Oral Tablet Atorvastatin Calcium 40MG Oral Tablet 07/12/2018 12:00:00 AM EDT 1 aborted atorvastatin 40 MG Oral [facility] BD Swab Single Use Regular Pad [...] type / Coverage type Policy ID Covered green party ID Covered green party's relationship to garzon Policy Garzon Plan Information WELLCARE [id number] SP [id number] HUMANA GOLD [id number] SP [id number] [employer] Other 0 Self 0 WELLCARE MEDICARE [id number] Rianna [id number] [employer] Other 0 Self 0 [employer]. Other 0 Self 0 [employer] Other 0 Self 0 [employer] Other 0 Self 0 SELF PAY WellCare [facility] Options [id number] SP [id number] HUMANA MEDICARE ADVANTAGE G [id number] Self [id number] MEDICARE [id number] Rianna [id number] MEDICARE [id number] Rianna [id number] HUMANA MEDICARE [id number] Rianna [id number] [facility] [id number] Rianna [id number] Humana Care Plan Other 0 Self 0 MEDICARE [id number] Rianna [id number] A Humana Care Plan Other 0 Self 0 HUMANA PPO [id number] SP [id number] HUMANA H [id number] Self [id number] Humana Care Plan Other 0 Self 0 SELF PAY HUMANA MEDICARE ADV [id number] SP [id number] HUMANA PPO [id number] SP [id number] [facility] OPTIONS [id number] SP [id number] MEDICARE [id number] SP [id number] A Humana Care Plan Other 0 Self 0 SELF PAY HUMANA MEDICARE ADV [id number] SP [id number] SELF PAY HUMANA MEDICARE ADV [id number] SP [id number] Humana Care Plan Other 0 Self 0 Humana Care Plan Other 0 Self 0 Humana Care Plan Other 0 Self 0 HUMANA MEDICARE ADV [id number] SP [id number] Medicare Part A of [facility] Omnipro Other 0 Self 0 Medicare Part A of [facility] Omnipro Other 0 Self 0 Medicare Part A of [facility]mnipro Other 0 Self 0 Medicare Part A of [facility] Other 0 Self 0 Humana Care Plan Other 0 Self 0 AARP HEALTHCARE OPTIONS [id number] SP [id number] MEDICARE [id number] SP [id number] A [facility] [employer] [facility]) Workers Compensation [id number] [address] [id number] [facility] [employer] [facility] Workers Compensation [id number] Self [id number] [facility] Options Medigap Part B [id number] Self [id number] Medicare [place] Primary [id number] Self [id number] [facility] UNAVAILABLE UNAVAILABLE AARP HE[employer]CARE OPTIONS [id number] SP [id number] [facility] [employer] [facility]) Workers Compensation [id number] Self [id number] [facility]) Workers Compensation [id number] Self [id number] [facility] Options Medigap Part B [id number] Self [id number] Medicare [place] Medicare Primary [id number] Self [id number] AARP HEALTH CARE OPTIONS UNAVAILABLE SP UNAVAILABLE AARP HEALTH CARE O [id number] S [id number] MEDICARE M [id number] S [id number] A AARP S [id number] S [id number] AARP S [id number] S [id number] MEDICARE P [id number] S [id number] A [id number] A Problems, Conditions, and Diagnoses Code Display Name Description Problem Type Effective Dates Data Source(s) I45.10 Unspecified right bundle-branch block Un specified right bundle-branch block Diagnosis 11/08/2019 03:31:31 PM EDT [facility] I71.2 Thoracic aortic aneurysm, without ruptur e Thoracic aortic aneurysm, without ruptur Diagnosis 11/08/2019 03:31:31 PM EDT [facility] E78.2 Mixed hyperlipidemia Mixed hyperlipidemia Diagnosis 11/08/2019 03:31:31 PM EDT [facility] 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 Coronary atherosclerosis due to calcifie Diagnosis 11/08/2019 03:31:31 PM EDT [facility] I25.10 Atherosclerotic heart diseas e of [place] coronary artery without angina pectoris Atherosclerotic heart disease of [place] Diagnosis 11/08/2019 03:31:31 PM EDT [facility] E78.2 Mixed hyperlipidemia E78.2 - Mixed hyperlipidemia Diag nosis 05/16/2019 07:05:00 AM EST [facility] E11.9 Type 2 diabetes mellitus without complic ations Type 2 diabetes mellitus without complic Diagnosis 04/05/2019 08:22:28 AM EST [facility] I10 Essential (primary) hypertension Essential (primary) h ypertension Diagnosis 04/05/2019 08:22:28 AM EST [facility] Surgeries/Procedures Procedure Description Date Indications Data Source(s) Past medical history -Please see Problem List for Act maxine Chronic Problems Past medical history -Please see Problem List for Active Chronic Problems 10/08/2019 12:00:00 AM EDT HARJINDER ([facility]) History of tonsillectomy History of tonsillectomy 10/08/2019 12:00: 00 AM EDT HARJINDER ([facility]) History of orthopedic surgery left knee replacement H istory of orthopedic surgery left knee replacement 10/08/2019 12:00:00 AM EDT GR EENWAY ([facility]) History of back surgery History of back surgery 10/08/2019 12:00:00 AM EDT HARJINDER ([facility]) Surgical / procedural history - TURP Surgical / procedural history - TURP 10/08/2019 12:00:00 AM EDT HARJINDER ([facility]) Removal Impacted Cerumen (separate Procedure), One or Both E (Left) Removal Impacted Cerumen (separate Procedure), One or Both E (Left) 10/08/2019 12:00:00 AM EDT HARJINDER ([facility]) Hemoglobin; Glycated A1c (QW) Hemoglobin; Glycated A1c (QW) 10/08/2019 12:00:00 AM EDT HARJINDER ([facility]) Removal Impacted Cerumen (separate Procedure), One or Both E Removal Impacted Cerumen (separate Procedure), One or Both E 10/08/2019 12:00:00 AM EDT HARJINDER ([facility]) RADEX ANKLE COMPLETE MINIMUM 3 VIEWS 09/18/2019 12:00: 00 AM EDT [facility] Hemoglobin; Glycated A1c (QW) Hemoglobin; Glycated A1c (QW) 05/31/2019 12:00:00 AM EDT [facility] Hemoglobin; Glycated A1c Hemoglobin; Glycated A1c 05/31/2019 12:00: 00 AM EDT [facility]INDER [facility] Results ID Date Data Source [id number] 10/19/2019 06:01:00 PM EDT CHARTMAKER ([facility]) EXAM: Spine lumbosacral INDICATION: [...] stool burden. Professional interpretation per formed at [facility] . Name Value Range Interpretation Code Description Data Debra rce(s) Supporting Document(s) ID Date Data Source [id number] 10/08/2019 07:45:00 AM EDT HARJINDER ([facility]) Name Value Range Interpretation Code Description Data Debra rce(s) Supporting Document(s) Hemoglobin A1c/Hemoglobin.total in Blood 8.8 Abnormal (applies to non-numeric results) Hgb A1c HARJINDER ([facility]) ID Date Data Source [id number] 05/31/2019 07:48:00 AM EDT HARJINDER ([facility]) Name Value Range Interpretation Code Description Data Debra rce(s) Supporting Document(s) Hemoglobin A1c/Hemoglobin.total in Blood 11.1 Above high normal Hgb A1c HARJINDER ([facility]) ID Date Data Source [id number] 05/16/2019 01:25:00 PM EST [facility] Name Value Range Interpretation Code Description Data Debra rce(s) Supporting Document(s) WHITE BLOOD COUNT 6.39 10^3/uL 4.00-10.50 [facility] RED BLOOD COUNT 5.20 10^6/uL 4.30-5.80 [facility] HEMOGLOBIN 14.7 G/DL 13.0-17.5 N [facility] HEMATOCRIT 44.8 % 41.0-53.0 N [facility] MCV 86.2 FL 80.0-100.0 N [facility] MCH 28.3 PG 27.0-34.0 N [facility] MCHC 32.8 G/DL 32-36 N [facility] RDW 13.7 % 11.5-14.5 N [facility] PLATELET COUNT 233 10^3/uL 130-400 N [facility] MPV 10.7 FL 8.7-13.2 N [facility] GRAN % (AUTO) 54.9 % 42.0-75.0 [facility] LYMPH % (AUTO) 31.6 % 20.0-51.0 [facility] MONO % (AUTO) 9.1 % 2.0-15.0 N [facility] EOS % (AUTO) 2.8 % 0.0-11.0 [facility] BASO % (AUTO) 0.8 % 0.0-2.0 [facility] IG % (AUTO) 0.8 % 1.00-5.00 [facility] IG # (AUTO) 0.1 10^3/uL <0.5 [facility] GRAN # (AUTO) 3.51 10^3/uL 1.50-6.50 [facility] LYMPH # (AUTO) 2.0 k/uL 1.0-5.0 N [facility] MONO # (AUTO) 0.58 k/uL 0.20-1.50 N [facility] EOS # (AUTO) 0.18 10^3/uL 0.00-1.10 N [facility] BASO # (AUTO) 0.05 10^3/uL 0.00-0.20 [facility] ID Date Data Source [id number] 05/16/2019 03:07:00 PM EST [facility] Name Value Range Interpretation Code Description Data Debra rce(s) Supporting Document(s) BILIRUBIN,TOTAL 0.8 MG/DL 0.1-1.3 N [facility] BILIRUBIN,DIRECT 0.3 MG/DL 0-0.4 N [facility] AST 24 U/L 5-40 N [facility] ALT 28 U/L 5-48 [facility] ALKALINE PHOSPHATASE 90 U/L 40-140 [facility] TOTAL PROTEIN 6.8 G/DL 5.9-8.3 N [facility] ALBUMIN 4.7 G/DL 3.0-5.1 N [facility] GLOBULIN 2.1 G/DL 1.5-3.5 N [facility] ALB/GLOB RATIO 2.2 G/DL 1.0-2.7 N [facility] ID Date Data Source [id number] 05/18/2019 07:47:00 AM [facility] Name Value Range Interpretation Code Description Data Debra rce(s) Supporting Document(s) Creatine Kinase,Total,S 226 U/L 24-204 A [facility] Macro CK Type 2,S 0 % Not Observed [facility] CK-MM,S 100 % 97-100 [facility] Macro CK Type 1,S 0 % Not Observed [facility] CK-MB,S 0 % 0-3 [facility] CK-BB,S 0 % 0 [facility] Performed at: RN - [facility] [place] [id number] Rn Orthopedic: Sofía Silva MD, Phone: [phone] ID Date Data Source [id number] 05/16/2019 03:07:00 PM [facility] Name Value Range Interpretation Code Description Data Debra rce(s) Supporting Document(s) SODIUM 144 MEQ/L 135-145 N [facility] POTASSIUM 3.7 MEQ/L 3.5-5.3 N [facility] CHLORIDE 105 MEQ/L 94-110 N [facility] CARBON DIOXIDE 27 MEQ/L 22-33 N [facility] ANION GAP 16 5-16 N [facility] BLOOD UREA NITRO 25 MG/DL 7-25 N [facility] CREATININE 1.3 MG/DL 0.6-1.4 N [facility] GFR 54.1 ML/MIN [facility] Stage G3a - Mildly to moderately decrea [...] years only. BUN/CREAT RATIO 19 8-36 N [facility] GLUCOSE 195 MG/DL 70-100 H [facility] CA 9.6 MG/DL 8.7-10.5 N [facility] ID Date Data Source [id number] 05/16/2019 03:07:00 PM EST [facility] Name Value Range Interpretation Code Description Data Debra rce(s) Supporting Document(s) TRIGLYCERIDES 94 MG/DL 45-150 N [facility] CHOLESTEROL 149 MG/DL 125-200 N [facility] LDL CHOLESTEROL 91 MG/DL 50-130 N [facility] HDL CHOLESTEROL 39 MG/DL 39-96 [facility] CHOL/HDL RATIO 3.8 0-4.9 N [facility] Procedure Social History Code Duration Value Status Description Data Source(s ) Smoking 10/08/2019 12:00:00 AM EDT Smokes tobacco daily (findi ng) completed Smokes tobacco daily (finding) HARJINDER ([facility]) Smoking 05/31/2019 12:00:00 AM EDT Ex-smoker (finding) complet ed Ex-smoker (finding) RISINGSUN ([facility]) Vital Signs ID Date Data Source UNK Name Value Range Interpretation Code Description Data Source(s) Body mass index (BMI) [Ratio] 30.1 kg/m2 30.1 k g/m2 [facility]) Body height 70 [in_i] 70 [in_i] MEDENT ([facility]) 5'10" Body weight 210.00 [lb_av] 210.00 [lb_av] MEDEN T ([facility]) Body temperature 98.4 [degF] 98.4 [degF] [facility]) Oxygen saturation in Arterial blood by Pulse oximetry 96 % 96 % [facility] ([facility]) Respiratory rate 17 /min 17 /min MEDENT ( [facility], [facility]) Heart rate 66 /min 66 /min MEDENT ([facility], [facility]) Diastolic blood pressure 78 mm[Hg] 78 mm[Hg] MEDENT ([facility], [facility]) Systolic blood pressure 134 mm[Hg] 134 mm[Hg] M EDENT ([facility]) Inhaled oxygen concentration 21 % 21 % HARJINDER ([facility]) Inhaled oxygen flow rate 0 L/min 0 L/min HARJINDER ([facility]) Oxygen saturation in Arterial blood by Pulse oximetry 96 % 96 % HARJINDER ([facility]) PhenX - pain, abdominal - type and intensity protocol 0 0 [facility]INDER [facility] Body weight 209 [lb_av] 209 [lb_av] [facility]JINDER [facility] Body temperature 97.3 [degF] 97.3 [degF] GREENW AY ([facility]) Respiratory rate 18 /min 18 /min HARJINDER ([facility]) Heart rate rhythm 1 1 GREENWA Y ([facility]) Heart rate 72 /min 72 /min HARJINDER ([facility]) Diastolic blood pressure 88 mm[Hg] 88 mm[Hg] [facility]JINDER ([facility]) Systolic blood pressure 148 mm[Hg] 148 mm[Hg] G REENWAY ([facility]) Body mass index (BMI) [Ratio] 29.9 kg/m2 29.9 k g/m2 MEDENT ([facility] ) Body weight 208.50 [lb_av] 208.50 [lb_av] MEDEN T ([facility] ) Body height 70 [in_i] 70 [in_i] MEDENT ([facility] ) 5'10" Body temperature 97.9 [degF] 97.9 [degF] MEDENT ([facility] ) Diastolic blood pressure 80 mm[Hg] 80 mm[Hg] HARJINDER ([facility]) Systolic blood pressure 124 mm[Hg] 124 mm[Hg] G REENWAY [facility] Inhaled oxygen concentration 21 % 21 % HARJINDER ([facility]) Inhaled oxygen flow rate 0 L/min 0 L/min HARJINDER ([facility]) Oxygen saturation in Arterial blood by Pulse oximetry 98 % 98 % RISINGSUN ([facility]) PhenX - pain, abdominal - type and intensity protocol 0 0 RISINGSUN ([facility]) Body surface area Derived from formula 2.17 m2 2.17 m2 HARJINDER ([facility]) Body mass index (BMI) [Ratio] 29.8 kg/m2 29.8 k g/m2 HARJINDER ([facility]) Body weight 214 [lb_av] 214 [lb_av] [facility] Body height 71 [in_i] 71 [in_i] HARJINDER ([facility]) Body temperature 98 [degF] 98 [degF] RISINGSUN ([facility]) Respiratory rate 18 /min 18 /min HARJINDER ([facility]) Heart rate rhythm 1 1 [facility] Y ([facility]) Heart rate 81 /min 81 /min HARJINDER ([facility]) Patient Treatment Plan of Care Planned Activity Planned Date Details Description Data Source (s) Acarbose 25 MG Oral Tablet 10/08/2019 12:00:00 AM EDT HARJINDER ([facility]) OneTouch Delica Lancets 33G Miscellaneous 10/08/2019 12:00:00 AM ED T HARJINDER ([facility]) Acarbose 25 MG Oral Tablet 10/08/2019 12:00:00 AM EDT HARJINDER ([facility]) OneTouch Verio w/Device Kit 06/05/2019 12:00:00 AM EDT HARJINDER ([facility]) OneTouch Delica Lancing Dev Miscellaneous 06/05/2019 12:00:00 AM ED T HARJINDER ([facility]) OneTouch Verio In Vitro Strip 06/05/2019 12:00:00 AM EDT HARJINDER ([facility]) OneTouch Delica Lancets 33G Miscellaneous 06/05/2019 12:00:00 AM ED T HARJINDER ([facility]) Acarbose 25 MG Oral Tablet 06/01/2019 12:00:00 AM EDT HARJINDER ([facility]) atorvastatin 40 MG Oral Tablet 06/01/2019 12:00:00 AM EDT HARJINDER ([facility]) BD Swab Single Use Regular Pad 06/01/2019 12:00:00 AM EDT HARJINDER ([facility]) glimepiride 4 MG Oral Tablet 06/01/2019 12:00:00 AM [facility]) Hydrochlorothiazide 12.5 MG Oral Tablet 06/01/2019 12:00:00 AM [facility] ([facility]) 24 HR Metformin hydrochloride 500 MG Extended Release Oral Tablet 06/01/2019 12:00:00 AM [facility] ([facility]) montelukast 10 MG Oral Tablet 06/01/2019 12:00:00 AM [facility] ([facility]) Accu-Chek Laverne Plus In Vitro Strip 06/01/2019 12:00:00 AM [facility] ([facility]) glimepiride 4 MG Oral Tablet 05/31/2019 12:00:00 AM [facility] ([facility]) 24 HR Metformin hydrochloride 500 MG Extended Release Oral Tablet 05/31/2019 12:00:00 AM [facility] ([facility]) montelukast 10 MG Oral Tablet [Singulair] 05/31/2019 12:00:00 AM [facility] HARJINDER ([facility]) Acarbose 25 MG Oral Tablet 05/31/2019 12:00:00 AM [facility] ([facility]) atorvastatin 40 MG Oral Tablet 05/31/2019 12:00:00 AM [facility] ([facility]) Hydrochlorothiazide 12.5 MG Oral Tablet 05/31/2019 12:00:00 AM [facility] ([facility]) 24 HR Metformin hydrochloride 500 MG Extended Release Oral Tablet 01/30/2019 12:00:00 AM [facility] ([facility]) montelukast 10 MG Oral Tablet [Singulair] 12/01/2018 12:00:00 AM [facility] ([facility]) Acarbose 25 MG Oral Tablet 12/01/2018 12:00:00 AM [facility] ([facility]) Accu-Chek Laverne Plus In Vitro Strip 07/12/2018 12:00:00 AM [facility] ([facility]) atorvastatin 40 MG Oral Tablet 07/12/2018 12:00:00 AM [facility] ([facility]) BD Swab Single Use Regular Pad 07/12/2018 [facility] glimepiride 4 MG Oral Tablet 07/12/2018 12:00:00 AM [facility] ([facility])
[2020-04-04 16:45] VITALS: BP 171/114
--- NOTE | 2020-04-04 18:16 | ECGEPIP ---
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
--- NOTE | 2020-04-04 18:25 | ECGEPIP ---
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
[2020-04-04 18:55] LABS: CK-MB VALUE MASS 2.2 NG/ML (<3.6); CPK CREATINE PHOSPHOKINASE 194 U/L (39-308); MB/CK RELATIVE INDEX 1.13 (< OR =4); TROPONIN I < 0.02 NG/ML (< 0.10)
[2020-04-04 19:00] VITALS: BP 189/115
== END 2020-04-04 19:16 | disposition home or self-care (01) ==
LOC: M ED 13:26
DX: R07.9 Chest pain, unspecified (principal); R06.02 Shortness of breath; R11.10 Vomiting, unspecified; I45.10 Unspecified right bundle-branch block; E11.9 Type 2 diabetes mellitus without complications; I10 Essential (primary) hypertension; E78.5 Hyperlipidemia, unspecified; Z79.899 Other long term (current) drug therapy; Z79.82 Long term (current) use of aspirin; Z79.84 Long term (current) use of oral hypoglycemic drugs

== ENCOUNTER → 2020-12-04 | Outpatient (CLI) | payer MEDICARE ==
[~2020-12-04] MED LIST changes: +BARIUM SULFATE 700 MG TABLET (E-Z-DISK) As Ordered ONE; +E-Z-PAQUE 96% w/w SUSP 176GM BTL As Ordered ONE; +ECOT81TA5 PO; +VARIBAR NECTAR 40% w/v 240ML SUSP BTL As Ordered ONE; +VARIBAR PUDDING 40% w/v 230ML TUBE As Ordered ONE
--- NOTE | 2020-12-04 16:57 | REP ---
INDICATION: DYSPHAGIA, OROPHARYNGEAL PHASE R13.12. COMPARISON: None. TECHNIQUE: The procedure was performed by Annette Reynoso [facility], under the direct supervision of Dr. Levi. The procedure was performed with Fouzia Maya, and Hannah Stevens from speech pathology present. 5 ml aliquots of thin, applesauce consistency, mixed fruit, soft food, hard food and pill consistency barium was administered. FINDINGS: No aspiration or penetration was visualized during the exam. The detailed report of this examination will be provided by speech pathology. IMPRESSION: Unremarkable cookie swallow, a detailed report will be provided by speech pathology. 2.3 minutes of fluoroscopy time was utilized for this procedure. Some fluoroscopic images are performed with last image hold technology. These images require no additional radiation <Electronically signed by Annette Reynoso > 12/04/20 1518 <Electronically signed by Lambert Levi > 12/04/20 [id number]
== END ==
LOC: M RAD 12:51
PROVIDERS: ATTEND Internal Medicine Gastroenterology
DX: R13.12 Dysphagia, oropharyngeal phase (principal)

== ENCOUNTER 2020-12-11 00:06 | Emergency (ER) | payer MEDICARE ==
[~2020-12-11] VITALS: Ht 180.3 cm; Wt 86.4 kg
[~2020-12-11 00:06] MED LIST changes: -BARIUM SULFATE 700 MG TABLET (E-Z-DISK) As Ordered ONE; -E-Z-PAQUE 96% w/w SUSP 176GM BTL As Ordered ONE; -VARIBAR NECTAR 40% w/v 240ML SUSP BTL As Ordered ONE; -VARIBAR PUDDING 40% w/v 230ML TUBE As Ordered ONE
[2020-12-11 00:54] LABS: BASO % 0.4 % (0.0-1.0); EOS # 0.2 10^3/uL (0.0-0.5); EOS % 2.6 % (0.0-3.0); HEMATOCRIT 43.4 % (42.0-52.0); HEMOGLOBIN 14.5 g/dl (13.5-17.5); LYMPH # 2.4 10^3/uL (1.5-5.0); MEAN CORPUSCULAR HEMOGLOBIN 29.3 pg (27.0-33.0); MEAN CORPUSCULAR HGB CONC 33.4 g/dl (32.0-36.5); MEAN CORPUSCULAR VOLUME 87.7 fl (80.0-96.0); MONO # 0.9 10^3/uL (0.0-0.8); MONO % 11.4 % (2.0-8.0); NEUTROPHILS # 4.5 10^3/uL (1.5-8.5); NEUTROPHILS % 55.1 % (36.0-66.0); PLATELET COUNT, AUTOMATED 230 10^3/uL (150-450); RED BLOOD COUNT 4.95 10^6/uL (4.30-6.10); WHITE BLOOD COUNT 8.1 10^3/uL (4.0-10.0)
[2020-12-11 00:58] LABS: INR 0.97; PROTHROMBIN TIME 13.2 SECONDS (12.7-14.5)
[2020-12-11 01:18] LABS: ALT/SGPT 36 U/L (12-78); BILIRUBIN,DIRECT 0.1 MG/DL (0.0-0.2); BILIRUBIN,TOTAL 0.5 MG/DL (0.2-1.0); CK-MB VALUE MASS 2.7 NG/ML (<3.6); CPK CREATINE PHOSPHOKINASE 244 U/L (39-308); LIPASE 144 U/L (73-393); MB/CK RELATIVE INDEX 1.11 (< OR =4); TOTAL PROTEIN 7.6 GM/DL (6.4-8.2); TROPONIN I < 0.02 NG/ML (< 0.10)
[2020-12-11] MEDS ORDERED: ISOVUE-370 76% 100ML VIAL As Ordered ONE (01:26)
--- NOTE | 2020-12-11 01:30 | REPVR ---
PROCEDURE INFORMATION: Exam: XR Chest Exam date and time: 12/11/2020 12:14 AM Age: 75 years old Clinical indication: Other: Chest pain TECHNIQUE: Imaging protocol: XR of the chest. Views: 1 view. COMPARISON: [facility] PORTABLE CHEST X-RAY 04/04/2020 1:58 PM FINDINGS: Lungs: Clear. No consolidation. Pleural spaces: No pleural effusion. No pneumothorax. Heart/Mediastinum: Implantable cardiac monitoring device is unchanged. No cardiomegaly. Bones/joints: Unremarkable. IMPRESSION: No acute findings. Electronically signed by: Brian Tellez On 12/11/2020 01:29:49 AM
--- NOTE | 2020-12-11 01:59 | REPVR ---
PROCEDURE INFORMATION: Exam: CTA Chest With Contrast Exam date and time: 12/11/2020 1:20 AM Age: 75 years old Clinical indication: Pain; Other: Chest; Additional info: HX of aneurysm, chest pain, HTN, R/O dissection TECHNIQUE: Imaging protocol: Computed tomographic angiography of the chest with contrast. 3D rendering (Not supervised by radiologist): MIP and/or 3D reconstructed images were created by the technologist. Radiation optimization: All CT scans at this facility use at least one of these dose optimization techniques: automated exposure control; mA and/or kV adjustment per patient size (includes targeted exams where dose is matched to clinical indication); or iterative reconstruction. Contrast material: ISO; Contrast volume: 100 ml; Contrast route: INTRAVENOUS (IV); COMPARISON: CT ANGIO CHEST 11/22/2018 3:02 PM FINDINGS: Pulmonary arteries: Normal. No pulmonary emboli. Aorta: Fusiform aneurysm of the ascending thoracic aorta measuring 4.2 cm. No aortic dissection. Lungs: Mild dependent atelectasis. No airspace infiltrates or masses. Pleural spaces: No pneumothorax. No pleural effusion. Heart: Unremarkable. No cardiomegaly. No pericardial effusion. Lymph nodes: Unremarkable. No enlarged lymph nodes. Bones/joints: Unremarkable. No acute fracture. Soft tissues: Unremarkable. IMPRESSION: 1. Fusiform ascending thoracic aortic aneurysm. No aortic dissection. 2. No pulmonary embolism or acute findings. Electronically signed by: Brian Tellez On 12/11/2020 01:59:03 AM
--- NOTE | 2020-12-11 02:06 | REPVR ---
PROCEDURE INFORMATION: Exam: CTA Abdomen and Pelvis With Contrast Exam date and time: 12/11/2020 1:20 AM Age: 75 years old Clinical indication: Abdominal pain; Generalized; Additional info: HX of aneurysm, chest pain, HTN, R/O dissection TECHNIQUE: Imaging protocol: Computed tomographic angiography of the abdomen and pelvis with contrast material. 3D rendering (Not supervised by radiologist): MIP and/or 3D reconstructed images were created by the technologist. Radiation optimization: All CT scans at this facility use at least one of these dose optimization techniques: automated exposure control; mA and/or kV adjustment per patient size (includes targeted exams where dose is matched to clinical indication); or iterative reconstruction. Contrast material: ISO; Contrast volume: 100 ml; Contrast route: INTRAVENOUS (IV); COMPARISON: CT ANGIO CHEST 11/22/2018 3:02 PM FINDINGS: Aorta: No aortic aneurysm. No aortic dissection. Celiac trunk and mesenteric arteries: No occlusion or significant stenosis. Renal arteries: No occlusion or significant stenosis. Right iliac arteries: No occlusion or significant stenosis. Left iliac arteries: No occlusion or significant stenosis. Liver: No mass. Gallbladder and bile ducts: Unremarkable. No calcified stones. No ductal dilation. Pancreas: Unremarkable. No mass. No ductal dilation. Spleen: Unremarkable. No splenomegaly. Adrenal glands: Unremarkable. No mass. Kidneys and ureters: Unremarkable. No solid mass. No hydronephrosis. Stomach and bowel: Mild colonic the diverticulosis. The small bowel is unremarkable. No bowel obstruction or inflammatory changes. Appendix: No evidence of appendicitis. Intraperitoneal space: Unremarkable. No free air. No significant fluid collection. Lymph nodes: Unremarkable. No enlarged lymph nodes. Urinary bladder: Urinary bladder is distended. No bladder wall thickening or calculi. Reproductive: Unremarkable as visualized. Bones/joints: There are advanced degenerative changes in the spine and pelvis. Chronic L1 compression fracture is unchanged. Soft tissues: Unremarkable. IMPRESSION: 1. Distended urinary bladder. No calculi or inflammatory changes. 2. Colonic diverticulosis. 3. No acute findings. Electronically signed by: Brian Tellez On 12/11/2020 02:05:41 AM
[2020-12-11 03:28] LABS: CK-MB VALUE MASS 2.1 NG/ML (<3.6); CPK CREATINE PHOSPHOKINASE 224 U/L (39-308); MB/CK RELATIVE INDEX 0.94 (< OR =4); TROPONIN I < 0.02 NG/ML (< 0.10)
[2020-12-11 04:07] VITALS: BP 167/106
--- NOTE | 2020-12-11 12:11 | ED PDOC ---
Post-Departure Follow-Up cta be faxed to [facility] for [facility] Jason Crane MD Dec 11, 2020 12:11
--- NOTE | 2020-12-12 00:07 | ECGEPIP ---
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
--- NOTE | 2020-12-12 00:08 | ECGEPIP ---
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
== END 2020-12-11 04:14 | disposition home or self-care (01) ==
LOC: M ED 00:06
DX: R07.9 Chest pain, unspecified (principal); I10 Essential (primary) hypertension
CPT/HCPCS: 36415; 71045; 71275; 74174; 80047; 80076; 82550; 82553; 83690; 84484; 85025; 85610; 93005; 93041; 94760; 99285; Q9967

== ENCOUNTER → 2022-02-15 | Outpatient (CLI) | payer MEDICARE | LOC: M LABSMTC 10:13 | PROVIDERS: ATTEND Anesthesiology | DX: Z01.812 Encounter for preprocedural laboratory examination (principal); Z11.52 Encounter for screening for COVID-19 ==

== ENCOUNTER 2022-02-17 08:47 | Day surgery (SDC) | payer MEDICARE ==
[~2022-02-17] VITALS: Ht 180.3 cm; Wt 92.5 kg
[~2022-02-17 08:47] MED LIST changes: +BSS IRRIG/VANCO(10MG)/TOBRA(5MG)/EPINEPH(1:1000-0.5CC)500ML BAG-ORONLY IR ONE; +CEFUROXIME 1MG/0.1ML INTRACAMERAL INJ As Ordered ONE; +CYCLOPENTOLATE 1% OPHTH SOLN 2 ML BTL OD SCH; +LIDOCAINE 1% 1ML PF SYRINGE (OR EYE CASES) As Ordered ONE; +LIDOCAINE 3.5 % 1ML OPHTH TOPICAL GEL OU ONE; +OFLOXACIN 0.3 % (OCUFLOX) OPTH SOL 5ML OD ONE; +PHENYLEPHRINE 2.5% OPHTH SOL 2ML OD SCH; +PHENYLEPHRINE HCL 10 % OPHTH. SOL 5ML OD PRN; +TROPICAMIDE 1% OPHTH SOLN 2ML OD SCH
[2022-02-17] MEDS ORDERED: fentaNYL 100 MCG/2 ML INJECTION As Ordered ONE (10:10)
[2022-02-17] MEDS ORDERED: MIDAZOLAM INJ 2MG/2ML VIAL (J2250 PER 1MG) As Ordered ONE (10:10)
[2022-02-17 10:21] VITALS: BP 131/88
== END 2022-02-17 10:45 | disposition home or self-care (01) ==
LOC: M SDC 08:47
PROVIDERS: ATTEND Ophthalmology
DX: H25.11 Age-related nuclear cataract, right eye (principal); I10 Essential (primary) hypertension; Z79.84 Long term (current) use of oral hypoglycemic drugs; Z79.899 Other long term (current) drug therapy; F17.220 Nicotine dependence, chewing tobacco, uncomplicated; Z87.891 Personal history of nicotine dependence
CPT/HCPCS: 66984; J0697; J2250; J3010; V2632

== ENCOUNTER 2022-08-01 18:06 | Emergency (ER) | payer MEDICARE ==
[~2022-08-01] VITALS: Ht 180.3 cm; Wt 94.0 kg
[~2022-08-01 18:06] MED LIST changes: -BSS IRRIG/VANCO(10MG)/TOBRA(5MG)/EPINEPH(1:1000-0.5CC)500ML BAG-ORONLY IR ONE; -CEFUROXIME 1MG/0.1ML INTRACAMERAL INJ As Ordered ONE; -CYCLOPENTOLATE 1% OPHTH SOLN 2 ML BTL OD SCH; -LIDOCAINE 1% 1ML PF SYRINGE (OR EYE CASES) As Ordered ONE; -LIDOCAINE 3.5 % 1ML OPHTH TOPICAL GEL OU ONE; -OFLOXACIN 0.3 % (OCUFLOX) OPTH SOL 5ML OD ONE; -PHENYLEPHRINE 2.5% OPHTH SOL 2ML OD SCH; -PHENYLEPHRINE HCL 10 % OPHTH. SOL 5ML OD PRN; -TROPICAMIDE 1% OPHTH SOLN 2ML OD SCH
[2022-08-01 18:07] VITALS: BP 180/100
[2022-08-01] MEDS ORDERED: SEMA7TAB2 (18:30)
== END 2022-08-01 22:45 | disposition left against medical advice (07) ==
LOC: M ED 18:06
DX: Z53.21 Procedure and treatment not carried out due to patient leaving prior to being seen by health care provider (principal)

== ENCOUNTER → 2023-07-18 | Outpatient (CLI) | payer MEDICARE ==
[~2023-07-18] MED LIST changes: +SEMA7TAB2
== END ==
LOC: M SOG 08:08
PROVIDERS: ATTEND Physician Assistant
DX: M79.671 Pain in right foot (principal); M25.571 Pain in right ankle and joints of right foot

== ENCOUNTER 2023-09-22 22:13 | Emergency (ER) | payer MEDICARE ==
[~2023-09-22] VITALS: Ht 177.8 cm; Wt 91.5 kg
[2023-09-22 22:13] VITALS: TEMP 97.1
[2023-09-22] MEDS ORDERED: NITR0.4S14 (22:47)
[2023-09-22] MEDS ORDERED: LANTINJ4 (22:47)
[2023-09-22] MEDS ORDERED: ISOS1TAB35 (22:51)
[2023-09-22] MEDS ORDERED: NITR100C2 (22:51)
[2023-09-22 23:00] LABS: BASO % 0.4 % (0.0-1.0); EOS # 0.2 10^3/uL (0.0-0.5); EOS % 2.2 % (0.0-3.0); HEMATOCRIT 42.7 % (42.0-52.0); HEMOGLOBIN 13.9 g/dl (13.5-17.5); LYMPH # 1.7 10^3/uL (1.5-5.0); LYMPH % 21.2 % (24.0-44.0); MEAN CORPUSCULAR HEMOGLOBIN 28.5 pg (27.0-33.0); MEAN CORPUSCULAR HGB CONC 32.6 g/dl (32.0-36.5); MEAN CORPUSCULAR VOLUME 87.7 fl (80.0-96.0); MONO # 0.7 10^3/uL (0.0-0.8); MONO % 9.1 % (2.0-8.0); NEUTROPHILS # 5.2 10^3/uL (1.5-8.5); NEUTROPHILS % 66.6 % (36.0-66.0); PLATELET COUNT, AUTOMATED 235 10^3/uL (150-450); RED BLOOD COUNT 4.87 10^6/uL (4.30-6.10); WHITE BLOOD COUNT 7.8 10^3/uL (4.0-10.0)
[2023-09-22 23:13] LABS: INR 1.05; PROTHROMBIN TIME 13.4 SECONDS (12.5-14.5)
[2023-09-22] MEDS ORDERED: ISOVUE-370 76% 100ML VIAL As Ordered ONE (23:21)
[2023-09-22 23:29] LABS: ALBUMIN 4.2 G/DL (3.2-5.2); BILIRUBIN,DIRECT 0.2 MG/DL (<0.4); BILIRUBIN,TOTAL 0.5 MG/DL (0.3-1.2); CALCIUM LEVEL 9.5 MG/DL (8.3-10.6); CK-MB VALUE MASS 2.3 NG/ML (<3.6); CREATININE FOR GFR 1.44 MG/DL (0.70-1.30); GLOMERULAR FILTRATION RATE 50.6 (>42); MB/CK RELATIVE INDEX 1.05 (< OR =4); POTASSIUM SERUM 3.9 MMOL/L (3.5-5.1); TOTAL PROTEIN 7.1 G/DL (5.7-8.2)
[2023-09-22] MEDS: ASPIRIN 81MG CHEW TABLET PO ONE (23:32)
[2023-09-23 01:24] LABS: CK-MB VALUE MASS 2.1 NG/ML (<3.6)
[2023-09-23 01:25] LABS: MB/CK RELATIVE INDEX 1.03 (< OR =4)
[2023-09-23] MEDS ORDERED: ELIQ5TAB PO (02:21)
[2023-09-23 02:30] VITALS: BP 124/87
[2023-09-23 02:31] VITALS: O2SAT 95
[2023-09-23] MEDS: APIXABAN 5 MG TAB (ELIQUIS) PO ONE (02:40)
== END 2023-09-23 02:30 | disposition home or self-care (01) ==
LOC: M ED 22:13
DX: R07.9 Chest pain, unspecified (principal); I48.91 Unspecified atrial fibrillation; I45.10 Unspecified right bundle-branch block; R00.1 Bradycardia, unspecified; E11.9 Type 2 diabetes mellitus without complications; F17.290 Nicotine dependence, other tobacco product, uncomplicated; F10.10 Alcohol abuse, uncomplicated; Z88.8 Allergy status to other drugs, medicaments and biological substances; Z79.1 Long term (current) use of non-steroidal anti-inflammatories (NSAID); Z79.4 Long term (current) use of insulin; Z79.84 Long term (current) use of oral hypoglycemic drugs; Z79.899 Other long term (current) drug therapy
CPT/HCPCS: 36415; 71045; 71275; 80048; 80076; 82550; 82553; 83690; 84484; 85025; 85610; 93005; 93041; 94760; 99285; Q9967

== ENCOUNTER 2023-12-28 21:27 | Emergency (ER) | payer MEDICARE ==
[~2023-12-28] VITALS: Ht 180.3 cm; Wt 86.4 kg
[~2023-12-28 21:27] MED LIST changes: +ELIQ5TAB PO; +ISOS1TAB35; +LANTINJ4; +NITR0.4S14; +NITR100C2
[2023-12-28 21:36] VITALS: BP 179/106; TEMP 97.8; O2SAT 100
[2023-12-28 22:36] LABS: BASO % 0.3 % (0.0-1.0); EOS # 0.3 10^3/uL (0.0-0.5); HEMATOCRIT 37.8 % (42.0-52.0); HEMOGLOBIN 12.1 g/dl (13.5-17.5); LYMPH # 1.5 10^3/uL (1.5-5.0); LYMPH % 24.2 % (24.0-44.0); MEAN CORPUSCULAR HEMOGLOBIN 27.4 pg (27.0-33.0); MEAN CORPUSCULAR VOLUME 85.5 fl (80.0-96.0); MONO % 15.7 % (2.0-8.0); NEUTROPHILS # 3.3 10^3/uL (1.5-8.5); NEUTROPHILS % 54.3 % (36.0-66.0); PLATELET COUNT, AUTOMATED 203 10^3/uL (150-450); RED BLOOD COUNT 4.42 10^6/uL (4.30-6.10)
[2023-12-28 23:08] LABS: MAGNESIUM LEVEL 1.8 MG/DL (1.8-2.4)
[2023-12-28 23:09] LABS: LIPASE 37 U/L (12-53)
[2023-12-28 23:10] LABS: CK-MB VALUE MASS < 1.0 NG/ML (<3.6)
[2023-12-28 23:11] LABS: ALBUMIN 3.4 G/DL (3.2-5.2); ALKALINE PHOSPHATASE 85 U/L (46-116); ALT/SGPT 19 U/L (7.0-40); AST/SGOT 19 U/L (<34); BILIRUBIN,DIRECT 0.2 MG/DL (<0.4); BILIRUBIN,TOTAL 0.4 MG/DL (0.3-1.2); BLOOD UREA NITROGEN 33 MG/DL (9-23); CALCIUM LEVEL 9.3 MG/DL (8.3-10.6); CARBON DIOXIDE LEVEL 27 MMOL/L (20-31); CHLORIDE LEVEL 108 MMOL/L (98-107); CPK CREATINE PHOSPHOKINASE 171 U/L (46-171); CREATININE FOR GFR 1.34 MG/DL (0.70-1.30); GLUCOSE, FASTING 192 MG/DL (74-106); MB/CK RELATIVE INDEX 0.58 (< OR =4); POTASSIUM SERUM 3.9 MMOL/L (3.5-5.1); SODIUM LEVEL 140 MMOL/L (136-145); TOTAL PROTEIN 6.6 G/DL (5.7-8.2)
[2023-12-28 23:14] LABS: FREE T4 1.34 NG/DL (0.89-1.76); THYROID STIMULATING HORMONE 5.197 uIU/ML (0.55-4.78)
[2023-12-29 00:56] LABS: CK-MB VALUE MASS < 1.0 NG/ML (<3.6)
[2023-12-29 00:57] LABS: CPK CREATINE PHOSPHOKINASE 166 U/L (46-171)
== END 2023-12-29 02:09 | disposition home or self-care (01) ==
LOC: M ED 21:27
DX: I48.91 Unspecified atrial fibrillation (principal); I45.2 Bifascicular block; I45.81 Long QT syndrome; E11.9 Type 2 diabetes mellitus without complications; F17.290 Nicotine dependence, other tobacco product, uncomplicated; F10.10 Alcohol abuse, uncomplicated; Z88.8 Allergy status to other drugs, medicaments and biological substances; Z79.01 Long term (current) use of anticoagulants; Z79.1 Long term (current) use of non-steroidal anti-inflammatories (NSAID); Z79.4 Long term (current) use of insulin; Z79.84 Long term (current) use of oral hypoglycemic drugs; Z79.899 Other long term (current) drug therapy

== ENCOUNTER 2024-05-17 10:22 | Day surgery (SDC) | payer MEDICARE ==
[~2024-05-17] VITALS: Ht 180.3 cm; Wt 88.7 kg
[~2024-05-17 10:22] MED LIST changes: +JARD1TAB PO
[2024-05-17] MEDS: LIDOCAINE 3.5 % 1ML OPHTH TOPICAL GEL OU ONE (12:12)
[2024-05-17] MEDS ORDERED: MIDAZOLAM INJ 2MG/2ML VIAL As Ordered ONE (12:21)
[2024-05-17] MEDS ORDERED: fentaNYL 100 MCG/2 ML INJECTION As Ordered ONE (12:21)
[2024-05-17] MEDS ORDERED: propofoL 200 MG/20 ML VIAL As Ordered ONE (12:45)
[2024-05-17] MEDS: POVIDONE-IODINE 5% OPHTH PREP SOL 30ML As Ordered ONE (12:50)
[2024-05-17] MEDS: LIDOCAINE 2% W/EPINEPHRINE 20ML VIAL **PRES FREE As Ordered ONE (13:08)
[2024-05-17] MEDS: TOBRADEX OPHTH OINT 3.5 GM As Ordered ONE (13:09)
[2024-05-17 13:14] VITALS: BP 144/85; TEMP 97.3; O2SAT 97
== END 2024-05-17 13:47 | disposition home or self-care (01) ==
LOC: M SDC 10:22
PROVIDERS: ATTEND Ophthalmology
DX: H02.105 Unspecified ectropion of left lower eyelid (principal); I48.91 Unspecified atrial fibrillation; I10 Essential (primary) hypertension; E11.9 Type 2 diabetes mellitus without complications; E78.00 Pure hypercholesterolemia, unspecified; Z79.899 Other long term (current) drug therapy; Z79.82 Long term (current) use of aspirin; Z79.4 Long term (current) use of insulin; Z79.84 Long term (current) use of oral hypoglycemic drugs; Z88.4 Allergy status to anesthetic agent; Z87.891 Personal history of nicotine dependence
CPT/HCPCS: 67917; J2250; J3010

== ENCOUNTER 2024-06-21 12:50 | Day surgery (SDC) | payer MEDICARE ==
[~2024-06-21] VITALS: Ht 180.3 cm; Wt 89.4 kg
[~2024-06-21 12:50] MED LIST changes: -LANTINJ4; +LANTINJ4 SC; +LIDOCAINE 2% 100MG/5ML SDV (FOR ANES.) As Ordered ONE; +MIDAZOLAM INJ 2MG/2ML VIAL As Ordered ONE; +ONDANSETRON 4MG 2ML VIAL As Ordered ONE; +fentaNYL 100 MCG/2 ML INJECTION As Ordered ONE; +propofoL 200 MG/20 ML VIAL As Ordered ONE
[2024-06-21] MEDS ORDERED: ROCURONIUM BROMIDE 50MG/5ML VIAL As Ordered ONE (13:02)
[2024-06-21] MEDS ORDERED: SEVOFLURANE INHAL SOLN 250 ML BTL As Ordered ONE (13:02)
[2024-06-21] MEDS ORDERED: LR 1,000 ML IV SCH (13:20)
[2024-06-21] MEDS ORDERED: ROPIvacaine 0.5% 30ML VIAL PN ONE (13:30)
[2024-06-21] MEDS ORDERED: dexAMETHasone 10MG/1ML VIAL PRES.FREE PN ONE (13:30)
[2024-06-21] MEDS ORDERED: LIDOCAINE 1% SDV 5ML VIAL PN ONE (13:30)
[2024-06-21] MEDS ORDERED: fentaNYL 100 MCG/2 ML INJECTION IV PRN (13:30)
[2024-06-21] MEDS ORDERED: MIDAZOLAM INJ 2MG/2ML VIAL IV PRN (13:30)
[2024-06-21] MEDS: ceFAZolin SODIUM 2 GM VIAL As Ordered ONE (14:30)
[2024-06-21] MEDS ORDERED: ePHEDrine SULFATE 25 MG/5 ML(5MG/ML) SYRINGE As Ordered ONE (14:33)
[2024-06-21] MEDS ORDERED: dexmedeTOMIDine (4MCG/ML)200MCG/50ML BTL (PRECEDEX) As Ordered ONE (14:47)
[2024-06-21] MEDS ORDERED: PHENYLephrine 500MCG 5ML (100MCG/ML) SYRINGE As Ordered ONE (14:48)
[2024-06-21] MEDS: TRANEXAMIC ACID 100 MG/ML 10ML VIAL As Ordered ONE (15:05)
[2024-06-21] MEDS ORDERED: ACETAMINOPHEN 1000MG/100ML IV BAG As Ordered ONE (15:10)
[2024-06-21] MEDS ORDERED: COLA100C5 PO (16:44)
[2024-06-21] MEDS ORDERED: IBUP200C25 PO (16:44)
[2024-06-21] MEDS ORDERED: ACET-907 PO (16:44)
[2024-06-21] MEDS ORDERED: OXYC-517 PO (16:44)
[2024-06-21 17:40] VITALS: BP 129/74; TEMP 96.8; O2SAT 98
== END 2024-06-21 17:48 | disposition home or self-care (01) ==
LOC: M SDC 12:50
PROVIDERS: ATTEND Orthopaedic Surgery
DX: M25.371 Other instability, right ankle (principal); M20.61 Acquired deformities of toe(s), unspecified, right foot; I48.91 Unspecified atrial fibrillation; E11.9 Type 2 diabetes mellitus without complications; Z88.4 Allergy status to anesthetic agent; Z79.899 Other long term (current) drug therapy; F17.220 Nicotine dependence, chewing tobacco, uncomplicated
CPT/HCPCS: 27626; 27698; 28820; 73620; 76000; 88300; C1713; J0131; J0665; J0690; J1100; J2250; J2371; J2405; J3010

== ENCOUNTER → 2024-06-27 | Outpatient (CLI) | payer MEDICARE ==
[~2024-06-27] MED LIST changes: +ACET-907 PO; +COLA100C5 PO; +IBUP200C25 PO; -LIDOCAINE 2% 100MG/5ML SDV (FOR ANES.) As Ordered ONE; -MIDAZOLAM INJ 2MG/2ML VIAL As Ordered ONE; -ONDANSETRON 4MG 2ML VIAL As Ordered ONE; +OXYC-517 PO; -fentaNYL 100 MCG/2 ML INJECTION As Ordered ONE; -propofoL 200 MG/20 ML VIAL As Ordered ONE
== END ==
LOC: M SOG 07:49
PROVIDERS: ATTEND Physician Assistant
DX: M25.371 Other instability, right ankle (principal); M20.5X1 Other deformities of toe(s) (acquired), right foot

== ENCOUNTER 2024-12-16 10:26 | Emergency (ER) | payer MEDICARE ==
[~2024-12-16] VITALS: Ht 175.3 cm; Wt 87.0 kg
[2024-12-16 12:40] VITALS: BP 130/80; TEMP 97.3; O2SAT 97
== END 2024-12-16 13:18 | disposition home or self-care (01) ==
LOC: M ED 10:26
DX: M25.531 Pain in right wrist (principal); Z88.8 Allergy status to other drugs, medicaments and biological substances; Z79.1 Long term (current) use of non-steroidal anti-inflammatories (NSAID); Z79.4 Long term (current) use of insulin; Z79.84 Long term (current) use of oral hypoglycemic drugs; Z79.899 Other long term (current) drug therapy

== ENCOUNTER → 2024-12-24 | Outpatient (CLI) | payer MEDICARE | LOC: M SOG 07:18 | PROVIDERS: ATTEND Physician Assistant | DX: M25.531 Pain in right wrist (principal); M85.831 Other specified disorders of bone density and structure, right forearm; M79.89 Other specified soft tissue disorders; S52.514A Nondisplaced fracture of right radial styloid process, initial encounter for closed fracture; X58.XXXA Exposure to other specified factors, initial encounter; Y92.9 Unspecified place or not applicable; Y93.9 Activity, unspecified; Y99.9 Unspecified external cause status ==